=== PATIENT | female | born 1975 | race Caucasian/White ===

== ENCOUNTER 2023-04-07 16:38 | Emergency (ER) | payer OTHER, SELFPAY ==
[2023-04-07 16:50] VITALS: BP 146/107; PULSE 68; RESP 16; TEMP 36.2; O2SAT 100
--- NOTE | 2023-04-07 16:53 | ED.SKABFB ---
HPI - Skin/Abscess/Foreign Bdy General Chief complaint: Skin/Abscess/Foreign Body Stated complaint: itchy rash on eyelid and neck Time Seen by Provider: 04/07/23 16:50 Source: patient, RN notes reviewed and old records reviewed Mode of arrival: ambulatory Limitations: no limitations History of Present Illness HPI narrative: 48 year old female who presents to [facility] care with complaints of working in the yard and garden on Friday and then breaking out with a rash noted on her face and neck yesterday with increased swelling of her left eye lid today and small area on chest. Patient denies any difficulty with her breathing or swallowing, reports that rash is itchy. Patient is requesting steroid shot since rash is on face and she has some swelling and redness of upper left eyelid. Patient reports that she has had poison regina before and thinks that is what rash is and is concerned of spreading. Patient denies any visual changes or any drainage from her left eye.Patient has taken some Benadryl and used hydrocortisone cream with some relief in itching. MD complaint: rash Onset (ago): day(s) (1) Location: face and neck Severity scale (1-10): 2 Treatments prior to arrival: OTC topical medication and Benadryl Related Data Allergies Allergy/AdvReac Type Severity Reaction Status Date / Time bee venom protein (honey bee) Allergy Unknown Unknown Verified 02/10/23 15:25 latex Allergy Unknown Unknown Verified 02/10/23 15:25 Review of Systems Review of Systems: CONSTITUTIONAL: Denies fever, chills, or sweats. CARDIOVASCULAR: Denies chest pain, palpitations, or edema. RESPIRATORY: Denies cough or dyspnea. SKIN: Reports swelling of left upper eyelid with redness,vision unaffected.tissue is itchy, also rash area under right chin raised scattered to chest also with pruritus MUSCULOSKELETAL: Denies joint pain or myalgia. NEUROLOGIC: Denies headache, numbness, or weakness. All systems reviewed & are unremarkable except as noted in HPI and below [facility] Past Medical History Medical History Chronic left shoulder pain Elevated blood pressure reading History of atrial fibrillation History of migraine headaches Other chronic pain Family History Family History Grandparent Diabetes mellitus Family history of glaucoma Family history of cardiovascular disease Mother Carcinoma of colon Other Family history of elevated blood lipids Hypertension Social History Social History Smoking status: Never smoker Second hand tobacco smoke exposure: No Alcohol intake: current Drinks per week: 2 Substance use: never Substance use type: does not use Comments At time of signature, agree with nursing past medical, surgical, social and family history. There is no relevant family history pertinent to the presenting complaint Exam Narrative: GENERAL: Well-appearing, well-nourished, and in no acute distress. HEAD: Normocephalic, atraumatic. EYES: PERRLA, conjunctivae clear, and EOMI.left eyelid red and swollen no visual changes, conjunctiva clear no drainage ENT: Mucous membranes moist. Oropharynx without edema, erythema or lesions. NECK: Supple. No lymphadenopathy CHEST: Clear to auscultation. No respiratory distress.no tachypnea, SAO2 100% on room air HEART: Regular rate and rhythm. SKIN: Warm, dry.? Patches of red raised scattered rash noted to right neck and chest upper which is itchy with redness and swelling of left eyelid. NEURO:? Alert and oriented x3. PSYCH: Normal mood and affect Course Course Emergency Course: Patient is aware of diagnosis, understands and agrees to treatment plan.? Anticipatory guidance given.? Patient agrees to follow-up as directed and is aware of reasons to seek care at the emergency department. Portions of this
[2023-04-07] MEDS: methylPREDNISolone ACETATE 80 MG/ML VIAL IM (17:06)
== END 2023-04-07 17:14 | disposition home or self-care (01) ==
PROVIDERS: Emergency Provider Registered Nurse; PCP Family Medicine
DX: L25.9 Unspecified contact dermatitis, unspecified cause (principal); L23.7 Allergic contact dermatitis due to plants, except food; I48.91 Unspecified atrial fibrillation
CPT/HCPCS: 96372; 99213; G0463; J1040

== ENCOUNTER → 2023-07-09 15:44 | Outpatient (CLI) | payer OTHER, SELFPAY ==
--- NOTE | ~2023-07-09 | US_ITS ---
EXAMINATION: US soft tissue lower back INDICATION: Palpable lump of the lower back TECHNIQUE: Targeted ultrasound is performed in the area of clinical interest. COMPARISON: None available FINDINGS: There is an approximately 4.3 x 1.6 x 4.8 cm isoechoic, circumscribed mass of the right low er back corresponding to the area of clinical interest. No associated internal vascularity is identif ied. No additional mass is seen. IMPRESSION: 1. Findings consistent with a lipoma in the area of clinical interest. Reviewed, dictated and finalized at location B.
== END ==
PROVIDERS: PCP Physician Assistant; Visit Provider Physician Assistant
DX: R22.2 Localized swelling, mass and lump, trunk (principal)
CPT/HCPCS: 76705

== ENCOUNTER 2023-07-29 00:22 | Day surgery (SDC) | payer OTHER, SELFPAY ==
[2023-07-22 09:43] VITALS: BMI 25.5
--- NOTE | 2023-07-22 09:47 | PC.NURSE ---
Report to the Outpatient Waiting Room, entrance under the green pavilion located off [facility], at time 1400 on date 07/29/23. Planned Procedure Time: 1500. Time changes happen often and if your time is changed the preop area will call you the afternoon before. - You and your visitor will be asked to self-screen and do not enter if you have any COVID symptoms. - A mask is optional within the hospital at this time. Patients may have LIGHT BREAKFAST/LUNCH Take the following medications with a SIP of water the morning of surgery: PRESCRIBED DO NOT STOP ANY OF YOUR OTHER PRESCRIPTION MEDICATIONS PRIOR TO SURGERY ?EXCEPT THE FOLLOWING Medications to discontinue per physician: N/A Date to take last dose: N/A Please no make-up, nail pakistani, hairspray, perfume, deodorant, or body powder the day of surgery. No jewelry (including any body piercings) or valuables the day of surgery, leave them at home. Please take a shower or bath the night before, or the morning of, surgery with an antibacterial soap. Wear comfortable, loose fitting clothing. - Jewelry must be removed prior to entering the operating room. Rings and piercings that are not removed may be cut off. - The hospital will not accept responsibility for valuables. - Please leave all valuables, including medications, at home the day of surgery. YOU MAY DRIVE YOURSELF HOME. Follow any additional instructions given to you from your surgeon. If you or anyone in your household have experienced Covid symptoms in the past week, please notify your surgeon or the nurse liaison at the phone number below for possible testing. Telephone instructions given to PT - BRITTANY HALL and asked if any additional questions and then verbalized understanding. Patient advised to call surgeon office or pre surgery nurse liaison [phone] if any additional questions.
--- NOTE | 2023-07-29 14:23 | WPDHPUPDATE1 ---
History and Physical Update Update Date/Time: 07/29/23 14:23 History and Physical has been reviewed, including an updated exam of the patient. There are NO changes in the patient's condition. Risks, benefits, and alternatives have been discussed and questions answered. Patient agrees to proceed with procedure.
[2023-07-29 14:41] VITALS: BP 202/112; PULSE 55; RESP 20; O2SAT 99
[2023-07-29] MEDS: BUPivacaine HCL 0.5% PF 30 ML VIAL 29.5 ML INFILTRATE (14:45)
[2023-07-29] MEDS: LIDO 1%/EPINEPHRINE 1:100,000 20 ML VIAL 29.5 ML INFILTRATE (14:45)
[2023-07-29 14:48] VITALS: BP 174/107; PULSE 64; RESP 20; O2SAT 96
[2023-07-29 15:02] VITALS: BP 189/102; PULSE 78; O2SAT 98
--- NOTE | 2023-07-29 15:16 | P.OP_ITS ---
Procedure Note - Detailed Date of Procedure 07/29/23 Pre-op Diagnosis Back Mass Post-op Diagnosis Other (Right lower back intramuscular lipoma) Procedure Performed Excision of right lower back mass intramuscular lipoma Surgeon Yury Martin MD Anesthesia Local Indications Patient is a 48-year-old white female who presented with a slowly enlarging and sore subcutaneous mass in the right lower back region. Clinically was consistent with a lipoma. She presents now for excision. Findings The patient had a intramuscular lipoma measuring 4cm in length by 3.5cm width by 1cm in depth. It extended below the fascial level of the underlying muscle. Description of Procedure After informed consent was obtained she was brought to the operating room she was placed prone on operating table. The area the right lower back region was then prepped and draped usual sterile fashion. A time-out was then performed correctly identifying the patient as well as procedure to be performed. Site marking was verified. She was not given any IV antibiotics as no IV was started. I then proceeded to anesthetize the area around the subcutaneous mass utilizing 1% lidocaine mixed with 0.5% Marcaine in a 50 50 mixture with some epinephrine. Once I achieved adequate anesthesia then made transverse incision over the mass in dissected down through the dermis of the skin with a scalpel. Once I was into the subcutaneous tissues utilized electrocautery to dissect down to the capsule of the lipoma. There was intramuscular extension of the lipoma just below the fascia into the muscle fibers. I split the muscle fibers and easily dissected out the lipoma from the surrounding muscle tissue. When the abscess was measured was 4cm in length by 3.5cm width by 1cm in depth. It was sent to pathology for examination. I then irrigated out the incision sterile saline solution. Hemostasis was excellent. I then close incision by placing interrupted 2-0 Vicryl sutures in the fascia to the muscle. This is then followed by layer of interrupted 3-0 Vicryl sutures in the subcutaneous tissues. The skin edges were approximated utilizing a running subcuticular 4 Monocryl suture. The incision was then cleaned and then skin glue was applied for final dressing. The patient tolerated the procedure well no complications. All sponges, needles, and instrument counts were correct at the end procedure. EBL was _5__cc. The p atient was awakened and taken to recovery in stable and satisfactory condition. Implants None Estimated Blood Loss 5 Drains No Packing No Pathology Yes (Intramuscular lipoma to pathology) Complications No immediate complications Condition Stable Disposition PACU [facility] Billing Surgery - Charge Forward: Surgery Billing
[2023-07-29 15:20] VITALS: BP 168/100; PULSE 61; RESP 16; O2SAT 99
== END 2023-07-29 15:40 | disposition home or self-care (01) ==
PROVIDERS: PCP Physician Assistant; Visit Provider Surgery
PROC: (CPT 21933; principal; 2023-07-29 15:00)
DX: D17.1 Benign lipomatous neoplasm of skin and subcutaneous tissue of trunk (principal)
CPT/HCPCS: 21933; 88304; A9270

== ENCOUNTER → 2023-10-01 14:46 | Outpatient (CLI) | payer OTHER, SELFPAY ==
--- NOTE | ~2023-10-01 | MM_ITS ---
EXAMINATION: MM screening alexa BI w gloria HISTORY: Screening TECHNIQUE: Craniocaudal and mediolateral oblique 3-D tomosynthesis images were obtained and synthetic 2-D images were generated. CAD analysis was submitted and interpreted. COMPARISON: No prior mammogram is available for comparison at this institution. BREAST PARENCHYMAL COMPOSITION: The breasts are heterogeneously dense, which may obscure small masses . FINDINGS: There is no evidence of suspicious mass, calcification, or architectural distortion to sugg est malignancy in either breast. There has been no suspicious interval change. IMPRESSION: 1. No mammographic evidence of malignancy. 2. Recommend routine screening mammography in one year. BI-RADS Category 1: Negative Reviewed, dictated and finalized at location A. UER SIZER
== END ==
PROVIDERS: Visit Provider Physician Assistant
DX: Z12.31 Encounter for screening mammogram for malignant neoplasm of breast (principal)
CPT/HCPCS: 77063; 77067

== ENCOUNTER 2024-12-14 14:32 | Outpatient (CLI) | payer OTHER, SELFPAY ==
--- NOTE | ~2024-12-14 | XR_ITS ---
EXAMINATION: XR wrist RT 2V, XR hand RT 2V DATE: 12/14/2024 14:50 INDICATION: Right hand and wrist pain and swelling post fall TECHNIQUE: 1. Posteroanterior and lateral views of the right wrist were obtained. 2. Dorsal palmar and lateral views of the right hand were obtained. COMPARISON: None. FINDINGS: Nondisplaced intra-articular fracture extending obliquely across the distal right radius with subtle lucent fracture line extending to involve the articular surface at the lunate fossa. Fracture may be likely comminuted with 2 foci of cortical interruption along the radial side of the metaphyseal shell x. Alignment remains essentially anatomic with no significant fracture gap or incongruity at the cesario cular surface. No other fractures identified. Polyarticular osteoarthritis, severe at the second-fift h distal interphalangeal joints, moderate severity at the remaining interphalangeal joints 3, the tri scaphe joint and and first-fifth metacarpophalangeal joints and mild at the wrist, first carpometacar pal and remaining metacarpophalangeal joints. IMPRESSION: 1. Nondisplaced interarticular fracture of the distal right radius. 2. Typical distribution of distal interphalangeal joint predominance moderate to severe polyarticular osteoarthritis at the right hand. Reviewed, dictated and finalized at location A. E COOKER IMPRESSION: 1. Nondisplaced interarticular fracture of the distal right radius. 2. Typical distribution of distal interphalangeal joint predominance moderate t o severe polyarticular osteoarthritis at the right hand.
--- NOTE | ~2024-12-14 | XR_ITS ---
EXAMINATION: XR hand LT 2V DATE: 12/14/2024 14:50 INDICATION: Chronic left hand pain TECHNIQUE: Posteroanterior, oblique and lateral views of the left hand were obtained. COMPARISON: None. FINDINGS: Bone alignment is normal. No fracture. Polyarticular osteoarthritis, severe at the second-fifth dista l interphalangeal joints, moderate severity at the triscaphe, the metacarpophalangeal and remaining i nterphalangeal joints and mild at the wrist, midcarpal and first carpal metacarpal joints. Soft tissu es are unremarkable. IMPRESSION: 1. Typical distribution of moderate to severe distal interphalangeal predominant polyarticular osteoa rthritis at the left hand. Reviewed, dictated and finalized at location A. RN IMPRESSION: 1. Typical distribution of moderate to severe distal interphalangeal predominan t polyarticular osteoarthritis at the left hand.
== END 2024-12-14 14:33 | disposition home or self-care (01) ==
LOC: MICIMG 14:34
PROVIDERS: PCP Family Medicine; Visit Provider Student in an Organized Health Care Education/Training Program
DX: S52.571A Other intraarticular fracture of lower end of right radius, initial encounter for closed fracture (principal); X58.XXXA Exposure to other specified factors, initial encounter; M19.041 Primary osteoarthritis, right hand; M19.042 Primary osteoarthritis, left hand; L40.51 Distal interphalangeal psoriatic arthropathy
CPT/HCPCS: 73100; 73120

== ENCOUNTER 2025-02-02 15:25 | Emergency (ER) | payer OTHER, SELFPAY ==
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
[2025-02-02 15:25] VITALS: BP 116/83; PULSE 114; RESP 18; TEMP 36.4; O2SAT 100
--- OUTSIDE RECORDS SUMMARY | 2025-02-02 17:23 | XMS_ITS | Encounter Summary ---
[facility] Address [address] Attn: Epic Prelude ADT [place] [address] Care Team Providers Care Line Installer Trolley Name Role Phone Keli Smith MD Primary Care Provider [phone] Encounter Details Date Type Department Care Team (Late st Contact Info) Description 06/12/1998 Outpatient Historical Conversion, History Social History Tobacco Use Types Packs/Day Years Used Date Smoking Tobacco: Never Assessed Comments Unknown Sex and Gender Information Value Date Recorded Sex Assigned at Not on file 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
--- OUTSIDE RECORDS SUMMARY | 2025-02-02 17:23 | XMS_ITS | Clinical Summary ---
Author Organization [facility] Address [address] [place] [address] Care Team Providers Care Superintendent Automotive Name Role Phone Jamal Jama MD Primary Care Provider [phone] Source Comments [facility],non-owned Affiliates and Associated Physician Practices is amultiple site organization consisting of ambulatory clinics and hospital sitesin [place], [place], [place] and [place]. This disclosure is being madepursuant to the Care Everywhere program and may not contain all information available regarding this patient. Last updated 18.[facility] Allergies No known active allergies Medications * Be aware that medications may not be up to date on this document. Alwaysverify current medications with the patient. Medication Sig Dispensed Refills Start Date End Date Status benzonatate (TESSALON) 200 MG capsuleIndications:A cute laryngitis Take 1 capsule by mouth 3 times daily as needed for Cough 30 capsule 10/20/2017 Active Family History Medical History Relation Name Comments CAD (Coronary Artery Disease) Father pace maker Hypertension Father Other Father bleeding disord er on blood thinners Cancer - Other Maternal Grandmother Cancer - Colon Mother uterine Relation Name Status Comments Father Maternal Grandmother Mother Social History Tobacco Use Types Packs/Day Years Used Date Smoking Tobacco: Never Smokeless Tobacco: Never Sex and Gender Information Value Date Recorded Sex Assigned at Not on file Gender Identity Not on file Sexual Orientation Not on file Last Filed Vital Signs Vital Sign Reading Time Taken Comments Blood Pressure 144/82 10/20/2017 4:26 PM BRICK WASHER Pulse 103 10/20/2017 4:26 PM BRICK WASHER Temperature 37 C (98.6 F) 10/20/2017 4:26 PM BRICK WASHER Respiratory Rate 16 10/20/2017 4:26 PM BRICK WASHER Oxygen Saturation 99% 10/20/2017 4:26 PM BRICK WASHER Inhaled Oxygen Concentration - - Weight 73.9 kg (163 lb) 10/20/2017 4:26 PM BRICK WASHER Height 172.7 cm (5' 8 ) 10/20/2017 4:26 PM BRICK WASHER Body Mass Index 24.78 10/20/2017 4:26 PM BRICK WASHER Plan of Treatment Health Maintenance Due Date Last Done Comments COLOGUARD (AGES 45-75) - COL ON CA SCREENING 1973 COLON MONITORING 1973 COLONOSCOPY - COLON CA SCREENING 1973 CT COLONOGRAPHY - COLON CA SCREENING 1973 Colorectal Cancer Screening 1973 FIT - COLON CA SCREENING 1973 FLEX SIG - COLON CA SCREENING 1973 LIPID TESTING 1973 MAMMOGRAM 1973 PAP SMEAR 1973 HIV SCREENING 1988 HEPATITIS C SCREENING 01/14/1991 DTAP/TDAP/TD VACCINES (1 - Tdap) 1992 HEPATITIS B VACCINE (1 of 3 - 19+ 3-dose series) 1992 PNEUMOCOCCAL VACCINE 50+ (1 of 1 - PCV) 2023 ZOSTER VACCINE (1 of 2) 2023 COVID-19 VACCINE (1 - 2023-2 5 season) 2024 INFLUENZA VACCINE (#1) 2024 DEPRESSION SCREENING 11/24/2024 HIB VACCINE Aged Out No longer eligi ble based on patient's age to complete this topic HPV VACCINE Aged Out No longer eligi ble based on patient's age to complete this topic MENINGOCOCCAL (Group B) VACC INE SHARED DECISION-MAKING Aged Out No longer eligibl e based on patient's age to complete this topic MENINGOCOCCAL GROUPS A/C/Y/W VACCINE Aged Out No longer eligible b ased on patient's age to complete this topic PNEUMOCOCCAL VACCINE Aged Out No long er eligible based on patient's age to complete this topic Care Teams Superintendent Automotive Relationship Specialty Start Date End Date Jamal Jama MD PCP - General Family Medicine 08/18/17
--- OUTSIDE RECORDS SUMMARY | 2025-02-02 17:23 | XMS_ITS | Encounter Summary ---
Author Organization [facility] Address [address] [place] [address] Care Team Providers Care Leakage Tester Name Role Phone Keli Smith MD Primary Care Provider [phone] Encounter Details Date Type Department Care Team (Late st Contact Info) Description 06/02/2002 Outpatient Historical [facility] Internal Medicine - [place] [address] [place] [id number] [place] [address] [place] [id number] Social History Tobacco Use Types Packs/Day Years Used Date Smoking Tobacco: Never Assessed Comments Unknown Sex and Gender Information Value Date Recorded Sex Assigned at Not on file 

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
--- OUTSIDE RECORDS SUMMARY | 2025-02-02 17:23 | XMS_ITS | Encounter Summary ---
Author Organization [facility] Address [address] [place] [address] Care Team Providers Care Security Field Supervisor Name Role Phone Keli Smith MD Primary Care Provider Encounter Details Date Type Department Care Team (Late st Contact Info) Description 06/15/2003 Outpatient Historical [facility] [place] [address] [place] [phone] [place] [address] [place] [phone] Social History Tobacco Use Types Packs/Day Years Used Date Smoking Tobacco: Never Assessed Comments Unknown Sex and Gender Information Value Date Recorded Sex Assigned at Not on file Legal Sex Female 5:04 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 TABLE 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 Gender Identity Not on file Sexual Orientation Not on file documented as of this encounter Last Filed Vital Signs Vital Sign Reading Time Taken Comments Blood Pressure 112/80 06/15/2003 3:30 PM CDT Pulse 60 06/15/2003 3:30 PM CDT Temperature - - Respiratory Rate - - Oxygen Saturation - - Inhaled Oxygen Concentration - - Weight 63.5 kg (140 lb) 06/15/2003 3:30 PM CDT Height - - Body Mass Index - - documented in this encounter Plan of Treatment Not on file documented as of this encounter Visit Diagnoses Not on filedocumented in this encounter Care Teams Security Field Supervisor Relationship Specialty Start Date End Date Keli Smith MD [address] [place] [phone] PCP - General Family Practice 08/22/21 documented as of this encounter
--- OUTSIDE RECORDS SUMMARY | 2025-02-02 17:23 | XMS_ITS | Referral Summary ---
Author Organization [facility] Address [address] [place] [address] Care Team Providers Care Core Man Name Role Phone Jamal Jama MD Primary Care Provider [phone] Source Comments [facility],non-owned Affiliates and Associated Physician Practices is amultiple site organization consisting of ambulatory clinics and hospital sitesin [place], [place], [place] and [place]. This disclosure is being madepursuant to the Care Everywhere program and may not contain all information available regarding this patient. Last updated 18.[facility] Allergies No known active allergies Medications * Be aware that medications may not be up to date on this document. Alwaysverify current medications with the patient. Medication Sig Dispensed Refills Start Date End Date Status benzonatate (TESSALON) 200 MG capsuleIndications:A cute laryngitis Take 1 capsule by mouth 3 times daily as needed for Cough 30 capsule 10/20/2017 Active Social History Tobacco Use Types Packs/Day Years Used Date Smoking Tobacco: Never Smokeless Tobacco: Never Sex and Gender Information Value Date Recorded Sex Assigned at Not on file Gender Identity Not on file Sexual Orientation Not on file Last Filed Vital Signs Vital Sign Reading Time Taken Comments Blood Pressure 144/82 10/20/2017 4:26 PM BRIDGE ENGINEER Pulse 103 10/20/2017 4:26 PM BRIDGE ENGINEER Temperature 37 C (98.6 F) 10/20/2017 4:26 PM BRIDGE ENGINEER Respiratory Rate 16 10/20/2017 4:26 PM BRIDGE ENGINEER Oxygen Saturation 99% 10/20/2017 4:26 PM BRIDGE ENGINEER Inhaled Oxygen Concentration - - Weight 73.9 kg (163 lb) 10/20/2017 4:26 PM BRIDGE ENGINEER Height 172.7 cm (5' 8 ) 10/20/2017 4:26 PM BRIDGE ENGINEER Body Mass Index 24.78 10/20/2017 4:26 PM BRIDGE ENGINEER Plan of Treatment Not on file Care Teams Core Man Relationship Specialty Start Date End Date Jamal Jama MD PCP - General Family Medicine 08/18/17
--- OUTSIDE RECORDS SUMMARY | 2025-02-02 17:23 | XMS_ITS | Encounter Summary ---
Author Organization [employer] Address [address] [place] [address] Care Team Providers Care Core Cutter Name Role Phone Keli Smith MD Primary Care Provider [phone] Encounter Details Date Type Department Care Team (Latest Contact Info) Description 01/14/2006 Inpatient Historical HIS OB PREADMIT Dave Angel MD NO ADDRESS ON FILE Murphy Wilson MD [facility] [address] [phone] BREECH PRESENTAT-DELIVER (Primary Dx) Social History Tobacco Use Types Packs/Day Years Used Date Smoking Tobacco: Never Assessed Comments Unknown Sex and Gender Information Value Date Recorded Sex Assigned at Not on file Legal Sex Female 5:04 AM RERECORDING MIXER Gender Identity Not on file Sexual Orientation Not on file documented as of this encounter Plan of Treatment Not on file documented as of this encounter Procedures Procedure Name Priority Date/Time Associated Diagnosis Comments CBC WITH DIFFERENTIAL Routine 01/13/2006 3:00 PM RERECORDING MIXER CBC WITH DIFFERENTIAL Routine 01/13/2006 3:00 PM RERECORDING MIXER URINALYSIS W/REFLEX MICROSCOPIC Routine 01/13/2006 3:00 PM RERECORDING MIXER documented in this encounter Results * (ABNORMAL) CBC WITH DIFFERENTIAL (01/13/2006 3:00 PM RERECORDING MIXER) NEUTROPHILS 71(H) 45 - 70 % INTERFAC E SYSTEM LYMPHOCYTES 20 16 - 45 % INTERFAC E SYSTEM MONOCYTES 8 3 - 13 % INTERFACE SYSTEM EOSINOPHILS 1 0 - 7 % INTERFAC E SYSTEM BASOPHILS 0 0 - 2 % INTERFACE SYSTEM NEUTROPHIL ABSOLUTE 7.02(H) 1.90 - 7.00 K/uL INTERFACE SYSTEM LYMPHOCYTE ABSOLUTE 1.95 0.70 - 4.50 K/uL INTERFACE SYSTEM MONOCYTE ABSOLUTE 0.81 0.10 - 1.30 K/uL INTERFACE SYSTEM EOSINOPHIL ABSOLUTE 0.07 0.00 - 0.70 K/uL INTERFACE SYSTEM BASOPHILS ABSOLUTE 0.02 0.00 - 0.20 K/uL INTERFACE SYSTEM 01/13/2006 3:00 PM RERECORDING MIXER us Murphy iWlson MD HEMATOLOGY ORDERABLES Final Result Performing Organization Address City/State/[facility] Co de Phone Number INTERFACE SYSTEM Refer to clinic/hospital department * (ABNORMAL) CBC WITH DIFFERENTIAL (01/13/2006 3:00 PM RERECORDING MIXER) WBC 9.9(H) 4.0 - 9.8 K/uL INTERFACE SYSTEM RBC 4.32 3.90 - 4.90 M/uL INTERFACE SYSTEM HEMOGLOBIN 12.9 11.8 - 14.8 g/dL INTERFACE SYSTEM HEMATOCRIT 37.9 35.5 - 44.0 % INTERFACE SYSTEM MCV 87.7 82.0 - 99.0 fL INTERFACE SYSTEM MCH 29.9 27.2 - 32.6 pg INTERFACE SYSTEM MCHC 34.0 31.5 - 35.5 % INTERFACE SYSTEM RDW 13.1 11.5 - 14.5 % INTERFACE SYSTEM RDW-STDEV 42.2 37.1 - 48.7 fL INTERFACE SYSTEM PLATELETS 262 140 - 350 K/uL INTERFACE SYSTEM MPV 9.6 9.3 - 12.4 fL INTERFACE SYSTEM 01/13/2006 3:00 PM RERECORDING MIXER Murphy Wilson MD HEMATOLOGY ORDERABLES Final Result Performing Organization Address City/[facility]/ZIP Co de Phone Number INTERFACE SYSTEM Refer to clinic/hospital department * (ABNORMAL) URINALYSIS (01/13/2006 3:00 PM RERECORDING MIXER) COLOR UA Yellow INTERFACE SYSTEM CLARITY UA Slt. Cloudy(A) Clear INTERFACE SYSTEM SPECIFIC GRAVITY UA 1.010 1.001 - 1.035 INTERFACE SYSTEM PH UA 6.0 5.0 - 8.0 INTERFACE SYSTEM LEUKOCYTE ESTERASE UA 2+(A) Negative INTERFACE SYSTEM NITRITE UA Negative Negative INTERFACE SYSTEM PROTEIN UA Trace(A) Negative INTERFACE SYSTEM GLUCOSE UA Negative Negative INTERFACE SYSTEM KETONES UA Negative Negative INTERFACE SYSTEM UROBILINOGEN UA <1 <1 mg/dL INTE RFACE SYSTEM BILIRUBIN UA Negative Negative INTERFA CE SYSTEM BLOOD UA 1+(A) Negative INTERFACE SYSTEM WBC UA 15(H) 0 - 5 /HPF INTERFACE SYSTEM RBC UA 5(H) 0 - 4 /HPF INTERFACE SYSTEM EPITHELIAL CELLS, URINE Many /HPF INTERFACE SYSTEM 01/13/2006 3:00 PM RERECORDING MIXER us Murphy Wilson MD URINE ORDERABLES Final Resul t Performing Organization Address City/[facility]/ZIP Co de Phone Number INTERFACE SYSTEM Refer to clinic/hospital department documented in this encounter Visit Diagnoses Diagnosis Breech presentation without mention of version, delivered- Primary documented in this encounter Care Teams Core Cutter Relationship Specialty Start Date End Date Keli Smith MD [address] [place] [phone] PCP - General Family Practice 08/22/21 documented as of this encounter
--- OUTSIDE RECORDS SUMMARY | 2025-02-02 17:23 | XMS_ITS | Encounter Summary ---
Author Organization [facility] Address [address] [place] [address] Care Team Providers Care Car Repairer Name Role Phone Keli Smith MD Primary Care Provider [phone] Encounter Details Date Type Department Care Team (Late st Contact Info) Description 10/31/2004 Outpatient Historical [facility] Internal Medicine - [place] [address] [place] [phone] [place] [address] [place] [phone] Social History Tobacco Use Types Packs/Day Years Used Date Smoking Tobacco: Never Assessed Comments Unknown Sex and Gender Information Value Date Recorded Sex Assigned at Not on file Legal Sex Female 5:04 AM SOFTWARE ENGINEERING SPECIALIST Gender Identity Not on file Sexual Orientation Not on file documented as of this encounter Last Filed Vital Signs Vital Sign Reading Time Taken Comments Blood Pressure 110/60 10/31/2004 9:30 AM SOFTWARE ENGINEERING SPECIALIST Pulse - - Temperature 38.9 C (102 F) 10/31/2004 9:30 AM SOFTWARE ENGINEERING SPECIALIST Respiratory Rate - - Oxygen Saturation - - Inhaled Oxygen Concentration - - Weight 64.4 kg (142 lb) 10/31/2004 9:30 AM SOFTWARE ENGINEERING SPECIALIST Height - - Body Mass Index - - documented in this encounter Plan of Treatment Not on file documented as of this encounter Visit Diagnoses Not on filedocumented in this encounter Care Teams Car Repairer Relationship Specialty Start Date End Date Keli Smith MD [address] [place] [address] PCP - General Family Practice 08/22/21 documented as of this encounter
--- OUTSIDE RECORDS SUMMARY | 2025-02-02 17:23 | XMS_ITS | Encounter Summary ---
Author Organization [employer] Address [address] [place] [address] Care Team Providers Care Pan Cleaner Name Role Phone Keli Smith MD Primary Care Provider [phone] Encounter Details Date Type Department Care Team (Late st Contact Info) Description 01/29/2025 External Device Data [facility] ABSTRACTION Provider, Abstract NO ADDRESS ON FILE Social History Tobacco Use Types Packs/Day Years Used Date Smoking Tobacco: Never Smokeless Tobacco: Never Alcohol Use Standard Drinks/Week Comments Yes 1 (1 standard drink = 0.6 oz pur e alcohol) Comments No Sex and Gender Information Value Date Recorded Sex Assigned at Not on file Legal Sex Female 5:04 AM NOTEMAN Gender Identity Not on file Sexual Orientation Not on file Occupation Industry Job Start Date Job End Date stay at home Not on file Not on file Not on file documented as of this encounter Plan of Treatment Not on file documented as of this encounter Visit Diagnoses Not on filedocumented in this encounter Care Teams Pan Cleaner Relationship Specialty Start Date End Date Keli Smith MD [address] [place] [phone] PCP - General Family Practice 08/22/21 documented as of this encounter
--- OUTSIDE RECORDS SUMMARY | 2025-02-02 17:23 | XMS_ITS | Encounter Summary ---
Author Organization [facility] Address [address] [place] [address] Care Team Providers Care Counter Stacker Name Role Phone Keli Smith MD Primary Care Provider [phone] Encounter Details Date Type Department Care Team (Latest Contact Info) Description 08/24/2008 Outpatient Historical HIS 6 [facility]ILY [facility]OC[facility] Murphy Wilson MD [facility] [address] [address] Deliv; Normal Delivery Social History Tobacco Use Types Packs/Day Years Used Date Smoking Tobacco: Never Assessed Comments Unknown Sex and Gender Information Value Date Recorded Sex Assigned at Not on file Legal Sex Female 5:04 AM SENIOR ENTERPRISE ARCHITECT Gender Identity Not on file Sexual Orientation Not on file documented as of this encounter Plan of Treatment Not on file documented as of this encounter Procedures Procedure Name Priority Date/Time Associated Diagnosis Comments BLOOD BANK AB IDENT Routine 08/24/2008 2 :04 PM CDT DIRECT RENEA POLY Routine 08/24/2008 2: 04 PM CDT CBC WITH DIFFERENTIAL Routine 08/24/2008 2:04 PM CDT URINALYSIS W/REFLEX MICROSCOPIC Routine 08/24/2008 2:04 PM CDT TYPE AND SCREEN Routine 08/24/2008 2:04 PM CDT documented in this encounter Results * DIRECT RENEA POLY (08/24/2008 2:04 PM CDT) DIRECT ANTIGLOBULIN POLY Negative [facility] 08/24/2008 2:04 PM CDT Murphy Wilson MD BLOOD BANK ORDERABLES Final Result Performing Organization Address City/[facility]/ZIP Co de Phone Number INTERFACE SYSTEM Refer to clinic/hospital department [facility] CLIA# [id number] [address] [facility] [address] * ANTIBODY IDENTIFICATION (08/24/2008 2:04 PM CDT) ANTIBODY ID PANEL SolidPhase Ab Only [facility] 08/24/2008 2:04 PM CDT Murphy Wilson MD BLOOD BANK ORDERABLES Final Result Performing Organization Address [facility] de Phone Number INTERFACE SYSTEM Refer to clinic/hospital department [facility] CLIA# [id number] [address] [place] [address] * TYPE AND SCREEN (08/24/2008 2:04 PM CDT) HISTORY CHECK History Checked [facility] SPECIMEN LIFE [address] [facility] ABO/RH TYPE A Positive [facility] ANTIBODY SCREEN Positive [facility] Blood specimen (specimen) 08/24/2008 2:04 PM CDT Murphy Wilson MD BLOOD BANK ORDERABLES Edited Performing Organization Address City/[facility] Co de Phone Number INTERFACE SYSTEM Refer to clinic/hospital department [facility] CLIA# [id number] [address] [place] [address] * (ABNORMAL) URINALYSIS (08/24/2008 2:04 PM CDT) KETONES UA Negative Negative [facility] WBC UA 3 0 - 5 /HPF [facility] CLARITY UA Slt. Cloudy(A) Clear [facility] PROTEIN UA Negative Negative [facility] EPITHELIAL CELLS, URINE 5-10 /HPF [facility] BILIRUBIN UA Negative Negative [facility] LEUKOCYTE ESTERASE UA 2+(A) Negative [facility] RBC UA 1 0 - 4 /HPF [facility] SPECIFIC GRAVITY UA 1.006 1.001 - 1.035 [facility] BLOOD UA Negative Negative [facility] GLUCOSE UA Negative Negative [facility] COLOR UA Pale Yellow [facility] NITRITE UA Negative Negative [facility] UROBILINOGEN UA <1 <=1 mg/dL [facility] BACTERIA UA 1+(A) None Seen /HPF [facility] PH UA 6.0 5.0 - 8.0 [facility] Urine specimen (specimen) 08/24/2008 2:04 PM CDT 08/24/2008 2:19 PM CDT us Murphy Wilson MD URINE ORDERABLES Final Resul t Performing Organization Address [facility] Co de Phone Number INTERFACE SYSTEM Refer to clinic/hospital department [facility] CLIA# [id number] [address] [place] [address] * CBC WITH DIFFERENTIAL (08/24/2008 2:04 PM CDT) RBC 4.06 3.90 - 4.90 M/uL [facility] MCHC 33.9 31.5 - 35.5 % [facility] MCV 88.7 82.0 - 99.[address] [facility] PLATELETS 253 140 - 350 K/uL [facility] HEMOGLOBIN 12.2 11.8 - 14.8 g/dL [facility] RDW 13.5 11.5 - 14.5 % [facility] WBC 8.8 4.0 - 9.8 K/uL [facility] MCH 30.0 27.2 - 32.[address] [facility] MPV 9.8 9.3 - 12.[address] [facility] HEMATOCRIT 36.0 35.5 - 44.0 % [facility] RDW-STDEV 43.4 37.1 - 48.[address] [facility] MONOCYTE ABSOLUTE 0.65 0.10 - 1.30 K/uL [facility] NEUTROPHILS 69 45 - 70 % [facility] NEUTROPHIL ABSOLUTE 6.04 1.90 - 7.00 K/uL [facility] EOSINOPHILS 1 0 - 7 % [facility] BASOPHILS ABSOLUTE 0.01 0.00 - 0.20 K/uL [facility] LYMPHOCYTES 23 16 - 45 % [facility] LYMPHOCYTE ABSOLUTE 2.02 0.70 - 4.50 K/uL [facility] BASOPHILS 0 0 - 2 % [facility] EOSINOPHIL ABSOLUTE 0.06 0.00 - 0.70 K/uL [facility] MONOCYTES 7 3 - 13 % [facility] Blood specimen (specimen) 08/24/2008 2:04 PM CDT 08/24/2008 2:19 PM CDT us Murphy Wilson MD HEMATOLOGY ORDERABLES Edited INTERFACE SYSTEM Refer to clinic/hospital department [facility] CLIA# [id number] [address] [place] [address] documented in this encounter Visit Diagnoses Diagnosis delivery, without mention of indication, delivered, with or without mention of antepartum condition Normal delivery documented in this encounter Care Teams Counter Stacker Relationship Specialty Start Date End Date Keli Smith MD [address] [place] [address] PCP - General Family Practice 08/22/21 documented as of this encounter
--- OUTSIDE RECORDS SUMMARY | 2025-02-02 17:23 | XMS_ITS | Encounter Summary ---
Author Organization [facility] Address [address] [place] [address] Care Team Providers Care Selling Specialist Name Role Phone Keli Smith MD Primary Care Provider [phone] Encounter Details Date Type Department Care Team (Late st Contact Info) Description 03/10/2001 Outpatient [facility] [address] [facility] [address] [place] [address] Abdoul Birmingham (Two) Social History Tobacco Use Types Packs/Day Years Used Date Smoking Tobacco: Never Assessed Comments Unknown Sex and Gender Information Value Date Recorded Sex Assigned at Not on file Legal Sex Female 5:04 AM CHANGE CONTROL MANAGER Gender Identity Not on file Sexual Orientation Not on file documented as of this encounter Plan of Treatment Not on file documented as of this encounter Visit Diagnoses Not on filedocumented in this encounter Care Teams Selling Specialist Relationship Specialty Start Date End Date Keli Smith MD [address] [place] [address] PCP - General Family Practice 08/22/21 documented as of this encounter
--- OUTSIDE RECORDS SUMMARY | 2025-02-02 17:23 | XMS_ITS | Encounter Summary ---
Author Organization [facility] Address [address] [place] [address] Care Team Providers Care Ash Kier Boiler Name Role Phone Keli Smith MD Primary Care Provider [phone] Encounter Details Date Type Department Care Team (Late st Contact Info) Description 08/30/1999 Outpatient Historical [facility] Internal Medicine - [place] [address] [place] [phone] [place] [address] [place] [phone] Social History Tobacco Use Types Packs/Day Years Used Date Smoking Tobacco: Never Assessed Comments Unknown Sex and Gender Information Value Date Recorded Sex Assigned at Not on file Legal Sex Female 5:04 AM DIRECTOR OF CLINICAL SERVICES Gender Identity Not on file Sexual Orientation Not on file documented as of this encounter Plan of Treatment Not on file documented as of this encounter Visit Diagnoses Not on filedocumented in this encounter Care Teams Ash Kier Boiler Relationship Specialty Start Date End Date Keli Smith MD [address] [place] [address] PCP - General Family Practice 08/22/21 documented as of this encounter
--- OUTSIDE RECORDS SUMMARY | 2025-02-02 17:23 | XMS_ITS | Encounter Summary ---
Author Organization [facility] Address [address] [place] [address] Care Team Providers Care Blacktop Spreader Name Role Phone Keli Smith MD Primary Care Provider [phone] Encounter Details Date Type Department Care Team (Late st Contact Info) Description 11/13/2000 Outpatient Historical [facility] Internal Medicine - [place] [address] [place] [phone] [place] [address] [place] [phone] Social History Tobacco Use Types Packs/Day Years Used Date Smoking Tobacco: Never Assessed Comments Unknown Sex and Gender Information Value Date Recorded Sex Assigned at Not on file Legal Sex Female 5:04 AM HELP DESK INTERNSHIP Gender Identity Not on file Sexual Orientation Not on file documented as of this encounter Plan of Treatment Not on file documented as of this encounter Visit Diagnoses Not on filedocumented in this encounter Care Teams Blacktop Spreader Relationship Specialty Start Date End Date Keli Smith MD [address] [place] [address] PCP - General Family Practice 08/22/21 documented as of this encounter
--- OUTSIDE RECORDS SUMMARY | 2025-02-02 17:23 | XMS_ITS | Encounter Summary ---
Author Organization [facility] Address [address] [place] [address] Care Team Providers Care Ride Assembly Supervisor Name Role Phone Keli Smith MD Primary Care Provider [phone] Encounter Details Date Type Department Care Team (Late st Contact Info) Description 01/20/2002 Outpatient [facility] [address] [place] [address] Abdoul Birmingham (Two) Social History Tobacco Use Types Packs/Day Years Used Date Smoking Tobacco: Never Assessed Comments Unknown Sex and Gender Information Value Date Recorded Sex Assigned at Not on file Legal Sex Female 5:04 AM SPRAYER OPERATOR Gender Identity Not on file Sexual Orientation Not on file documented as of this encounter Plan of Treatment Not on file documented as of this encounter Visit Diagnoses Not on filedocumented in this encounter Care Teams Ride Assembly Supervisor Relationship Specialty Start Date End Date Keli Smith MD [address] [place] [address] PCP - General Family Practice 08/22/21 documented as of this encounter
--- OUTSIDE RECORDS SUMMARY | 2025-02-02 17:23 | XMS_ITS | Encounter Summary ---
Author Organization [facility] Address [address] [place] [address] Care Team Providers Care Hcc Coders Name Role Phone Keli Smith MD Primary Care Provider [phone] Encounter Details Date Type Department Care Team (Late st Contact Info) Description 03/21/1999 Outpatient Historical [facility] Internal Medicine - [place] [address] [place] [address] Carmen Berry MD [address] [facility] [address] [place] [address] Social History Tobacco Use Types Packs/Day Years Used Date Smoking Tobacco: Never Assessed Comments Unknown Sex and Gender Information Value Date Recorded Sex Assigned at Not on file Legal Sex Female 5:04 AM RESEARCH SOFTWARE ENGINEER Gender Identity Not on file Sexual Orientation Not on file documented as of this encounter Plan of Treatment Not on file documented as of this encounter Visit Diagnoses Not on filedocumented in this encounter Care Teams Hcc Coders Relationship Specialty Start Date End Date Keli Smith MD [address] [place] [address] PCP - General Family Practice 08/22/21 documented as of this encounter
--- OUTSIDE RECORDS SUMMARY | 2025-02-02 17:23 | XMS_ITS | Encounter Summary ---
Author Organization [employer] Address [address] [place] [address] Care Team Providers Care Solid Waste Collector Name Role Phone Keli Smith MD Primary Care Provider [phone] Encounter Details Date Type Department Care Team (Late st Contact Info) Description 02/01/2025 External Device Data STL ABSTRACTION [...] on file Legal Sex Female 5:04 AM TRAVEL SALES CONSULTANT Gender Identity Not on file Sexual Orientation Not on file Occupation Industry Job Start Date Job End Date stay at home Not on file Not on file Not on file documented as of this encounter Plan of Treatment Not on file documented as of this encounter Visit Diagnoses Not on filedocumented in this encounter Care Teams Solid Waste Collector Relationship Specialty Start Date End Date Keli Smith MD [address] [place] [address] PCP - General Family Practice 08/22/21 documented as of this encounter
--- OUTSIDE RECORDS SUMMARY | 2025-02-02 17:23 | XMS_ITS | Encounter Summary ---
Author Organization [facility] Address [address] [place] [address] Care Team Providers Care Assistant County Attorney Name Role Phone Keli Smith MD Primary Care Provider [phone] Encounter Details Date Type Department Care Team (Late st Contact Info) Description 08/28/2005 Outpatient Historical [facility] Maternal and Ground Floor [facility] [address] [place] [address] Louie Caicedo MD NO ADDRESS ON FILE Social History Tobacco Use Types Packs/Day Years Used Date Smoking Tobacco: Never Assessed Comments Unknown Sex and Gender Information Value Date Recorded Sex Assigned at Not on file Legal Sex Female 5:04 AM UTILITY SYSTEM OPERATOR Gender Identity Not on file Sexual Orientation Not on file documented as of this encounter Plan of Treatment Not on file documented as of this encounter Visit Diagnoses Not on filedocumented in this encounter Care Teams Assistant County Attorney Relationship Specialty Start Date End Date Keli Smith MD [address] [place] [phone] PCP - General Family Practice 08/22/21 documented as of this encounter
--- OUTSIDE RECORDS SUMMARY | 2025-02-02 17:23 | XMS_ITS | Continuity of Care Document ---
Author Organization [facility] Address [address] [place] [address] Phone Care Team Providers Care Design Engineer Agricultural Equipment Name Role Phone MD THOMAS GILBERT Unavailable Unavailable Advance Directives Directive Yes / No Effective Date File Name No Information Encounters Encounter Description Practice Location Reason(s) For Visit Diagnoses Date Provider Providers Copied on Encounter [facility], [address] [facility], [place], [place], [id number], [place] tel:[phone] [facility] OUTPATIENT No Information MD RUTHIE THOMAS. [address] [place] [address], [id number], [place]. tel:[phone] Referring Provider: CEDRIC Hines, [address] [place], [address]. tel:[phone] Family History Family Member Type Diagnosis Age At Onset No Information Payers Payer name Insurance type Covered libertarian ID Authorsalomóna kuldip(s) [facility] POS [id number] CI [id number] Social History Type Description Quantity Date Captured Comments Sex Female Smoking Status No Information Chief Complaint And Reason For Visit No Information History Of Present Illness Encounter Date Complaint History Of Prese nt Illness No Information Instructions Date Instruction Additional Infor mation No Information Assessments Type Assessment Date No Information
--- OUTSIDE RECORDS SUMMARY | 2025-02-02 17:23 | XMS_ITS | Encounter Summary ---
Author Organization [facility] Address [address] [place] [address] Care Team Providers Care Rug Hooker Name Role Phone Keli Smith MD Primary Care Provider [phone] Encounter Details Date Type Department Care Team (Late st Contact Info) Description 03/24/2002 Outpatient [facility] [address] [address] [place] [address] Abdoul Birmingham (Two) Social History Tobacco Use Types Packs/Day Years Used Date Smoking Tobacco: Never Assessed Comments Unknown Sex and Gender Information Value Date Recorded Sex Assigned at Not on file Legal Sex Female 5:04 AM OFFICE MACHINES WIRER Gender Identity Not on file Sexual Orientation Not on file documented as of this encounter Plan of Treatment Not on file documented as of this encounter Visit Diagnoses Not on filedocumented in this encounter Care Teams Rug Hooker Relationship Specialty Start Date End Date Keli Smith MD [address] [place] [address] PCP - General Family Practice 08/22/21 documented as of this encounter
--- OUTSIDE RECORDS SUMMARY | 2025-02-02 17:23 | XMS_ITS | Encounter Summary ---
Author Organization [facility] Address [address] [place] [address] Care Team Providers Care Meat Cutter Apprentice Name Role Phone Keli Smith MD Primary Care Provider [phone] Encounter Details Date Type Department Care Team (Latest Contact Info) Description 06/15/2003 Outpatient Historical [facility] SHAKIR Lindsey, [place] [address] [place] [address] ELB/FOREARM/WRST INJURY NOS (Primary Dx) Social History Tobacco Use Types Packs/Day Years Used Date Smoking Tobacco: Never Assessed Comments Unknown Sex and Gender Information Value Date Recorded Sex Assigned at Not on file Legal Sex Female 5:04 AM SILK SCREENER Gender Identity Not on file Sexual Orientation Not on file documented as of this encounter Plan of Treatment Not on file documented as of this encounter Visit Diagnoses Diagnosis Injury, other and unspecified, elbow, forearm, and wrist- Primary documented in this encounter Care Teams Meat Cutter Apprentice Relationship Specialty Start Date End Date Keli Smith MD [address] [place] [address] PCP - General Family Practice 08/22/21 documented as of this encounter
--- OUTSIDE RECORDS SUMMARY | 2025-02-02 17:23 | XMS_ITS | Encounter Summary ---
Author Organization [facility] Address [address] [place] [address] Care Team Providers Care Information Technology Intern Name Role Phone Keli Smith MD Primary Care Provider [phone] Encounter Details Date Type Department Care Team (Late st Contact Info) Description 09/28/2003 Outpatient Historical [facility] Internal Medicine - [place] [address] [place] [phone] [place] [address] [place] [phone] Social History Tobacco Use Types Packs/Day Years Used Date Smoking Tobacco: Never Assessed Comments Unknown Sex and Gender Information Value Date Recorded Sex Assigned at Not on file Legal Sex Female 5: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 Gender Identity Not on file Sexual Orientation Not on file documented as of this encounter Last Filed Vital Signs Vital Sign Reading Time Taken Comments Blood Pressure 122/80 09/28/2003 11:30 AM PIT FURNACE OPERATOR Pulse - - Temperature - - Respiratory Rate - - Oxygen Saturation - - Inhaled Oxygen Concentration - - Weight 62.6 kg (138 lb) 09/28/2003 11:30 AM PIT FURNACE OPERATOR Height - - Body Mass Index - - documented in this encounter Plan of Treatment Not on file documented as of this encounter Visit Diagnoses Not on filedocumented in this encounter Care Teams Information Technology Intern Relationship Specialty Start Date End Date Keli Smith MD [address] [place] [address] PCP - General Family Practice 08/22/21 documented as of this encounter
--- OUTSIDE RECORDS SUMMARY | 2025-02-02 17:23 | XMS_ITS | Clinical Summary ---
Author Organization [facility] Address [address] [place] [address] Care Team Providers Care Microsoft Application Developer Name Role Phone Unavailable Primary Care Provider Unavailabl e Immunizations Immunization Administration Dates Next Due Covid-19, Mrna, Lnp-s, PF, 5 0 mcg/0.25 mL dose (Moderna) 11/28/2021 Social History Tobacco Use Types Packs/Day Years Used Date Smoking Tobacco: Never Assessed Comments Unknown Sex and Gender Information Value Date Recorded Sex Assigned at Not on file Legal Sex Female 1:51 PM BUDGET ACCOUNTANT Gender Identity Not on file Sexual Orientation Not on file Plan of Treatment Health Maintenance Due Date Last Done Comments Hepatitis C Virus (HCV) Screening 1973 Mammogram 1973 Hepatitis B Immunization (1 of 3 - 19+ 3-dose series) 1992 Pap Smear 1994 Cervical Cancer Screening (CCS) 2003 HPV/Cotest 2003 Cologuard 2023 Immunochemical Fecal Occult Blood 2023 Pneumococcal Immunization (5 0+ years) (1 of 1 - PCV) 2023 Zoster Immunization (1 of 2) 2023 Influenza Immunization (#1) 07/25/202408/24, 11/20/2016 SARS-COV-2 Immunization ( season) 2024 11/28/2021, 05/08/2021, 04/10/2021 Colonoscopy 09/04/2031 09/04/2021 Colorectal Cancer Screening 09/04/2031 Respiratory Syncytial Virus (RSV) Immunization (Adult) (1 - 1-dose 75+ series) 2048 09/04/2021 DTaP/Tdap/Td Immunization Discontinued 06/24/2015 TdaP Immunization Completed 06/24/2015 Meningococcal Immunization (ACWY) Aged Out No longer eligible based on patient's age to complete this topic Pneumococcal Immunization Combined Aged Out No longer eligible based on patient's age to complete this topic Rotavirus Immunization Aged Out No lo nger eligible based on patient's age to complete this topic
--- OUTSIDE RECORDS SUMMARY | 2025-02-02 17:23 | XMS_ITS | Encounter Summary ---
Author Organization [facility] Address [address] [place] [address] Care Team Providers Care Dried Yeast Supervisor Name Role Phone Keli Smith MD Primary Care Provider [phone] Encounter Details Date Type Department Care Team (Late st Contact Info) Description 05/19/2002 Outpatient Historical [facility] Internal Medicine - [place] [address] [place] [phone] Vince Suazo MD NO ADDRESS ON FILE Social History Tobacco Use Types Packs/Day Years Used Date Smoking Tobacco: Never Assessed Comments Unknown Sex and Gender Information Value Date Recorded Sex Assigned at Not on file Legal Sex Female 5:04 AM ADVERTISING JOB TITLES Gender Identity Not on file Sexual Orientation Not on file documented as of this encounter Plan of Treatment Not on file documented as of this encounter Visit Diagnoses Not on filedocumented in this encounter Care Teams Dried Yeast Supervisor Relationship Specialty Start Date End Date Keli Smith MD [address] [place] [phone] PCP - General Family Practice 08/22/21 documented as of this encounter
--- OUTSIDE RECORDS SUMMARY | 2025-02-02 17:23 | XMS_ITS | Encounter Summary ---
Author Organization [facility] Address [address] [place] [address] Care Team Providers Care Clothing Sorter Name Role Phone Keli Smith MD Primary Care Provider [phone] Encounter Details Date Type Department Care Team (Latest Contact Info) Description 08/28/2005 Outpatient [facility] Murphy Wilson MD [address] [place] [phone] CEREBRAL CYSTS (Primary Dx) Social History Tobacco Use Types Packs/Day Years Used Date Smoking Tobacco: Never Assessed Comments Unknown Sex and Gender Information Value Date Recorded Sex Assigned at Not on file Legal Sex Female 5:[address]INTENANCE SUPERVIS[address] Gender Identity Not on file Sexual Orientation Not on file documented as of this encounter Plan of Treatment Not on file documented as of this encounter Visit Diagnoses Diagnosis Cerebral cysts- Primary documented in this encounter Care Teams Clothing Sorter Relationship Specialty Start Date End Date Keli Smith MD [address] [place] [phone] PCP - General Family Practice 08/22/21 documented as of this encounter
--- OUTSIDE RECORDS SUMMARY | 2025-02-02 17:23 | XMS_ITS | Encounter Summary ---
Author Organization [facility] Address 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
--- OUTSIDE RECORDS SUMMARY | 2025-02-02 17:23 | XMS_ITS | Patient Health Summary ---
Author Organization [facility] Address [address] [facility] [place] [address] Care Team Providers Care Hvac Tech Name Role Phone Jamal Jama MD Primary Care Provider [phone] Note from [facility],non-owned Affiliates and Associated Physician Practices is amultiple site organization consisting of ambulatory clinics and hospital sitesin [place], [place], [place] and [place]. This disclosure is being madepursuant to the Care Everywhere program and may not contain all information available regarding this patient. Last updated 18.[facility] Allergies No known active allergies Medications * Be aware that medications may not be up to date on this document. Alwaysverify current medications with the patient. * benzonatate (TESSALON) 200 MG capsule(Started 10/20/2017) Take 1 capsule by mouth 3 times daily as needed for Cough Social History Tobacco Use Types Packs/Day Years Used Date Smoking Tobacco: Never Smokeless Tobacco: Never Sex and Gender Information Value Date Recorded Sex Assigned at Not on file Gender Identity Not on file Sexual Orientation Not on file Last Filed Vital Signs Vital Sign Reading Time Taken Comments Blood Pressure 144/82 10/20/2017 4:26 PM DIRECT MAIL CLERK Pulse 103 10/20/2017 4:26 PM DIRECT MAIL CLERK Temperature 37 C (98.6 F) 10/20/2017 4:26 PM DIRECT MAIL CLERK Respiratory Rate 16 10/20/2017 4:26 PM DIRECT MAIL CLERK Oxygen Saturation 99% 10/20/2017 4:26 PM DIRECT MAIL CLERK Inhaled Oxygen Concentration - - Weight 73.9 kg (163 lb) 10/20/2017 4:26 PM DIRECT MAIL CLERK Height 172.7 cm (5' 8 ) 10/20/2017 4:26 PM DIRECT MAIL CLERK Body Mass Index 24.78 10/20/2017 4:26 PM DIRECT MAIL CLERK Procedures * STREP A SCREEN - POINT OF CARE (AMB) STL(Performed 10/20/2017) Performed for Acute laryngitis Results * STREP A SCREEN (10/20/2017 4:42 PM DIRECT MAIL CLERK) Strep A Rapid POCT Negative Negative Strep A Internal Control Present Lot # [id number] Expiration Date 05 09 2019 Throat ENTIRE THROAT (SURFACE REGION OF NECK) / Unknown 10/20/2017 4:42 PM DIRECT MAIL CLERK Vicki Mesa BRICK [facility] [facility] DEVELOPER LAB - POINT OF CA RE ORDERABLES Care Teams Hvac Tech Relationship Specialty Start Date End Date Jamal Jama MD PCP - General Family Medicine 08/18/17
--- OUTSIDE RECORDS SUMMARY | 2025-02-02 17:23 | XMS_ITS | Encounter Summary ---
Author Organization [facility] Address [address] [place] [address] Care Team Providers Care Wood Mechanist Name Role Phone Keli Smith MD Primary Care Provider [phone] Encounter Details Date Type Department Care Team (Late st Contact Info) Description 02/09/1999 Outpatient Historical [facility] Internal Medicine - [place] [address] [place] [phone] [place] [address] [place] [phone] Social History Tobacco Use Types Packs/Day Years Used Date Smoking Tobacco: Never Assessed Comments Unknown Sex and Gender Information Value Date Recorded Sex Assigned at Not on file Legal Sex Female 5:04 AM RELAY TECHNICIAN Gender Identity Not on file Sexual Orientation Not on file documented as of this encounter Plan of Treatment Not on file documented as of this encounter Visit Diagnoses Not on filedocumented in this encounter Care Teams Wood Mechanist Relationship Specialty Start Date End Date Keli Smith MD [address] [place] [address] PCP - General Family Practice 08/22/21 documented as of this encounter
[2025-02-02] MEDS: KETOROLAC 30 MG/ML VIAL (*BKC) IM (17:52)
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
--- OUTSIDE RECORDS SUMMARY | 2025-02-02 18:11 | XMS_ITS | Encounter Summary ---
Author Organization [facility] Address [address] [place] [address] Care Team Providers Care Eradicator Name Role Phone Keli Smith MD Primary Care Provider [phone] Encounter Details Date Type Department Care Team (Late st Contact Info) Description 08/28/2005 Outpatient Historical [facility] Maternal and Ground Floor [address] [facility] [address] [place] [address] Louie Caicedo MD NO ADDRESS ON FILE Social History Tobacco Use Types Packs/Day Years Used Date Smoking Tobacco: Never Assessed Comments Unknown Sex and Gender Information Value Date Recorded Sex Assigned at Not on file Legal Sex Female 5:04 AM EQUAL OPPORTUNITY ASSISTANT Gender Identity Not on file Sexual Orientation Not on file documented as of this encounter Plan of Treatment Not on file documented as of this encounter Visit Diagnoses Not on filedocumented in this encounter Care Teams Eradicator Relationship Specialty Start Date End Date Keli Smith MD [address] [place] [phone] PCP - General Family Practice 08/22/21 documented as of this encounter
--- OUTSIDE RECORDS SUMMARY | 2025-02-02 18:11 | XMS_ITS | Encounter Summary ---
Author Organization [employer] Address [address] [place] [address] Care Team Providers Care Certified Breastfeeding Educator Name Role Phone Keli Smith MD Primary Care Provider [phone] Encounter Details Date Type Department Care Team (Latest Contact Info) Description 01/14/2006 Inpatient Historical [facility] Dave Angel MD NO ADDRESS ON FILE Murphy Wilson MD [facility] 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) Social History Tobacco Use Types Packs/Day Years Used Date Smoking Tobacco: Never Assessed Comments Unknown Sex and Gender Information Value Date Recorded Sex Assigned at Not on file Legal Sex Female 5:04 AM SENIOR QC TECHNICIAN Gender Identity Not on file Sexual Orientation Not on file documented as of this encounter Plan of Treatment Not on file documented as of this encounter Procedures Procedure Name Priority Date/Time Associated Diagnosis Comments CBC WITH DIFFERENTIAL Routine 01/13/2006 3:00 PM SENIOR QC TECHNICIAN CBC WITH DIFFERENTIAL Routine 01/13/2006 3:00 PM SENIOR QC TECHNICIAN URINALYSIS W/REFLEX MICROSCOPIC Routine 01/13/2006 3:00 PM SENIOR QC TECHNICIAN documented in this encounter Results * (ABNORMAL) CBC WITH DIFFERENTIAL (01/13/2006 3:00 PM SENIOR QC TECHNICIAN) NEUTROPHILS 71(H) 45 - 70 % INTERFAC [...] 0.20 K/uL INTERFACE SYSTEM 01/13/2006 3:00 PM SENIOR QC TECHNICIAN us Murphy Wilson MD HEMATOLOGY ORDERABLES Final Result Performing Organization Address City/State/[facility] Co de Phone Number INTERFACE SYSTEM Refer to clinic/hospital department * (ABNORMAL) CBC WITH DIFFERENTIAL (01/13/2006 3:00 PM SENIOR QC TECHNICIAN) WBC 9.9(H) 4.0 - 9.8 K/uL INTERFACE [...] 12.4 fL INTERFACE SYSTEM 01/13/2006 3:00 PM SENIOR QC TECHNICIAN Murphy Wilson MD HEMATOLOGY ORDERABLES Final Result Performing Organization Address City/[facility]/ZIP Co de Phone Number INTERFACE SYSTEM Refer to clinic/hospital department * (ABNORMAL) URINALYSIS (01/13/2006 3:00 PM SENIOR QC TECHNICIAN) COLOR UA Yellow INTERFACE SYSTEM CLARITY UA [...] Many /HPF INTERFACE SYSTEM 01/13/2006 3:00 PM SENIOR QC TECHNICIAN us Murphy Wilson MD URINE ORDERABLES Final Resul t Performing Organization Address City/[facility]/ZIP Co de Phone Number INTERFACE SYSTEM Refer to clinic/hospital department documented in this encounter Visit Diagnoses Diagnosis Breech presentation without mention of version, delivered- Primary documented in this encounter Care Teams Certified Breastfeeding Educator Relationship Specialty Start Date End Date Keli Smith MD [address] [place] [phone] PCP - General Family Practice 08/22/21 documented as of this encounter
--- OUTSIDE RECORDS SUMMARY | 2025-02-02 18:11 | XMS_ITS | Encounter Summary ---
Author Organization [facility] Address [address] [place] [address] Care Team Providers Care Rug Receiving Clerk Name Role Phone Keli Smith MD Primary Care Provider [phone] Encounter Details Date Type Department Care Team (Late st Contact Info) Description 09/28/2003 Outpatient Historical [facility] Internal Medicine - [place] [address] [place] [phone] [place] [address] [place] [phone] Social History Tobacco Use Types Packs/Day Years Used Date Smoking Tobacco: Never Assessed Comments Unknown Sex and Gender Information Value Date Recorded Sex Assigned at Not on file Legal Sex Female 5:04 AM MOLECULAR SPECTROSCOPIST Gender Identity Not on file Sexual Orientation Not on file documented as of this encounter Last Filed Vital Signs Vital Sign Reading Time Taken Comments Blood Pressure 122/80 09/28/2003 11:30 AM MOLECULAR SPECTROSCOPIST Pulse - - Temperature - - Respiratory Rate - - Oxygen Saturation - - Inhaled Oxygen Concentration - - Weight 62.6 kg (138 lb) 09/28/2003 11:30 AM MOLECULAR SPECTROSCOPIST Height - - Body Mass Index - - documented in this encounter Plan of Treatment Not on file documented as of this encounter Visit Diagnoses Not on filedocumented in this encounter Care Teams Rug Receiving Clerk Relationship Specialty Start Date End Date Keli Smith MD [address] [place] [address] PCP - General Family Practice 08/22/21 documented as of this encounter
--- OUTSIDE RECORDS SUMMARY | 2025-02-02 18:11 | XMS_ITS | Encounter Summary ---
Author Organization [facility] Address [address] [place] [address] Care Team Providers Care Windows Technical Specialist Name Role Phone Keli Smith MD Primary Care Provider [phone] Encounter Details Date Type Department Care Team (Late st Contact Info) Description 06/15/[address] [facility] Internal Medicine - [place] [address] [place] [phone] [place] [address] [place] [phone] Social History Tobacco Use Types Packs/Day Years Used Date Smoking Tobacco: Never Assessed Comments Unknown Sex and Gender Information Value Date Recorded Sex Assigned at Not on file Legal Sex Female 5:04 AM CREDIT SUPPORT COUNSELOR Gender Identity Not on file Sexual Orientation [...] on filedocumented in this encounter Care Teams Windows Technical Specialist Relationship Specialty Start Date End Date Keli Smith MD [address] [place] [phone] PCP - General Family Practice 08/22/21 documented as of this encounter
--- OUTSIDE RECORDS SUMMARY | 2025-02-02 18:11 | XMS_ITS | Encounter Summary ---
Author Organization [facility] Address [address] [place] [address] Care Team Providers Care Parimutuel Ticket Checker Name Role Phone Keli Smith MD Primary Care Provider [phone] Encounter Details Date Type Department Care Team (Late st Contact Info) Description 11/13/2000 Outpatient Historical [facility] Internal Medicine - [place] [address] [place] [phone] [place] [address] [place] [phone] Social History Tobacco Use Types Packs/Day Years Used Date Smoking Tobacco: Never Assessed Comments Unknown Sex and Gender Information Value Date Recorded Sex Assigned at Not on file Legal Sex Female 5:04 AM SERVICES EXECUTIVE Gender Identity Not on file Sexual Orientation Not on file documented as of this encounter Plan of Treatment Not on file documented as of this encounter Visit Diagnoses Not on filedocumented in this encounter Care Teams Parimutuel Ticket Checker Relationship Specialty Start Date End Date Keli Smith MD [address] [place] [address] PCP - General Family Practice 08/22/21 documented as of this encounter
--- OUTSIDE RECORDS SUMMARY | 2025-02-02 18:11 | XMS_ITS | Encounter Summary ---
Author Organization [facility] [place] [facility] Address [address] [place] [address] Care Team Providers Care Bottling Machine Operator Name Role Phone Keli Smith MD Primary Care Provider [phone] Encounter Details Date Type Department Care Team (Late st Contact Info) Description 02/09/1999 Outpatient Historical [facility] Internal Medicine - [place] [address] [place] [phone] [place] [address] [place] [phone] Social History Tobacco Use Types Packs/Day Years Used Date Smoking Tobacco: Never Assessed Comments Unknown Sex and Gender Information Value Date Recorded Sex Assigned at Not on file Legal Sex Female 5:04 AM FLAT LOCK MACHINE 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
--- OUTSIDE RECORDS SUMMARY | 2025-02-02 18:11 | XMS_ITS | Encounter Summary ---
Author Organization [facility] Address [address] [place] [address] Care Team Providers Care Senior Librarian Name Role Phone Keli Smith MD Primary Care Provider [phone] Encounter Details Date Type Department Care Team (Latest Contact Info) Description 08/24/2008 Outpatient Historical [facility] Murphy Wilson MD [facility] [address] [address] Deliv; Normal Delivery Social History Tobacco Use Types Packs/Day Years Used Date Smoking Tobacco: Never Assessed Comments Unknown Sex and Gender Information Value Date Recorded Sex Assigned at Not on file Legal Sex Female 5:04 AM MANNEQUIN MOUNTER Gender Identity Not on file Sexual Orientation [...] 2:04 PM CDT) DIRECT ANTIGLOBULIN POLY Negative [facility] 08/24/2008 2:04 PM CDT Murphy Wilson MD BLOOD BANK ORDERABLES Final Result Performing Organization Address City/[facility]/ZIP Co de Phone Number INTERFACE SYSTEM Refer to clinic/hospital department [facility] CLIA# [id number] [address] [facility] [place] [address] * ANTIBODY IDENTIFICATION (08/24/2008 2:04 PM CDT) ANTIBODY ID PANEL SolidPhase Ab Only [facility] 08/24/2008 2:04 PM CDT Murphy Wilson MD BLOOD BANK ORDERABLES Final Result Performing Organization Address [facility] de Phone Number INTERFACE SYSTEM Refer to clinic/hospital department [facility] CLIA# [id number] [address] [place] [place] [address] * TYPE AND SCREEN (08/24/2008 2:04 PM CDT) HISTORY CHECK History Checked [facility] SPECIMEN LIFE 3 days from drawdate [facility] ABO/RH TYPE A Positive [facility] ANTIBODY SCREEN Positive [facility] Blood specimen (specimen) 08/24/2008 2:04 PM CDT Murphy Wilson MD BLOOD BANK ORDERABLES Edited Performing Organization Address City/[facility] Co de Phone Number INTERFACE SYSTEM Refer to clinic/hospital department [facility] CLIA# [id number] [address] [place] [address] * (ABNORMAL) URINALYSIS (08/24/2008 2:04 PM CDT) KETONES UA Negative Negative [facility] WBC UA 3 0 - 5 /HPF [facility] CLARITY UA Slt. Cloudy(A) Clear [facility] PROTEIN UA Negative Negative [facility] EPITHELIAL CELLS, URINE 5-10 /HPF [facility] BILIRUBIN UA Negative Negative [facility] LEUKOCYTE ESTERASE UA 2+(A) Negative [facility] RBC UA 1 0 - 4 /HPF [facility] SPECIFIC GRAVITY UA 1.006 1.001 - 1.035 [facility] BLOOD UA Negative Negative [facility] GLUCOSE UA Negative Negative [facility] COLOR UA Pale Yellow [facility] NITRITE UA Negative Negative [facility] UROBILINOGEN UA <1 <=1 mg/dL [facility] BACTERIA UA 1+(A) None Seen /HPF [facility] PH UA 6.0 5.0 - 8.0 [facility] Urine specimen (specimen) 08/24/2008 2:04 PM CDT 08/24/2008 2:19 PM CDT us Murphy Wilson MD URINE ORDERABLES Final Resul t Performing Organization Address [facility] Co de Phone Number INTERFACE SYSTEM Refer to clinic/hospital department [facility] CLIA# [id number] [address] [place] [address] * CBC WITH DIFFERENTIAL (08/24/2008 2:04 PM CDT) RBC 4.06 3.90 - 4.90 M/uL [facility] MCHC 33.9 31.5 - 35.5 % [facility] MCV 88.7 82.0 - 99.0 fL [facility] PLATELETS 253 140 - 350 K/uL [facility] HEMOGLOBIN 12.2 11.8 - 14.8 g/dL [facility] RDW 13.5 11.5 - 14.5 % [facility] WBC 8.8 4.0 - 9.8 K/uL [facility] MCH 30.0 27.2 - 32.6 pg [facility] MPV 9.8 9.3 - 12.4 fL [facility] HEMATOCRIT 36.0 35.5 - 44.0 % [facility] RDW-STDEV 43.4 37.1 - 48.7 fL [facility] MONOCYTE ABSOLUTE 0.65 0.10 - 1.30 K/uL [facility] NEUTROPHILS 69 45 - 70 % [facility] NEUTROPHIL ABSOLUTE 6.04 1.90 - 7.00 K/uL [facility] EOSINOPHILS 1 0 - 7 % [facility] BASOPHILS ABSOLUTE 0.01 0.00 - 0.20 K/uL [facility] LYMPHOCYTES 23 16 - 45 % [facility] LYMPHOCYTE ABSOLUTE 2.02 0.70 - 4.50 K/uL [facility] BASOPHILS 0 0 - 2 % [facility] EOSINOPHIL ABSOLUTE 0.06 0.00 - 0.70 K/uL [facility] MONOCYTES 7 3 - 13 % [facility] Blood specimen (specimen) 08/24/2008 2:04 PM CDT 08/24/2008 2:19 PM CDT us Murphy Wilson MD HEMATOLOGY ORDERABLES Edited INTERFACE SYSTEM Refer to clinic/hospital department [facility] CLIA# [id number] [address] [place] [address] documented in this encounter Visit Diagnoses Diagnosis delivery, without mention of indication, delivered, with or without mention of antepartum condition Normal delivery documented in this encounter Care Teams Senior Librarian Relationship Specialty Start Date End Date Keli Smith MD [address] [place] [address] PCP - General Family Practice 08/22/21 documented as of this encounter
--- OUTSIDE RECORDS SUMMARY | 2025-02-02 18:11 | XMS_ITS | Encounter Summary ---
Author Organization [facility] Address [address] [place] [address] Care Team Providers Care Structural Architect Name Role Phone Keli Smith MD Primary Care Provider [phone] Encounter Details Date Type Department Care Team (Latest Contact Info) Description 06/15/2003 Outpatient Historical [facility] SH[facility] Lindsey, [place] [address] [place] [address] ELB/FOREARM/WRST INJURY NOS (Primary Dx) Social History Tobacco Use Types Packs/Day Years Used Date Smoking Tobacco: Never Assessed Comments Unknown Sex and Gender Information Value Date Recorded Sex Assigned at Not on file Legal Sex Female 5:04 AM ROD PILER Gender Identity Not on file Sexual Orientation Not on file documented as of this encounter Plan of Treatment Not on file documented as of this encounter Visit Diagnoses Diagnosis Injury, other and unspecified, elbow, forearm, and wrist- Primary documented in this encounter Care Teams Structural Architect Relationship Specialty Start Date End Date Keli Smith MD [address] [place] [address] PCP - General Family Practice 08/22/21 documented as of this encounter
--- OUTSIDE RECORDS SUMMARY | 2025-02-02 18:11 | XMS_ITS | Clinical Summary ---
Author Organization [facility] Address [address] [place] [address] Phone Care Team Providers Care Credentialing Manager Name Role Phone Keli Smith MD Primary Care Provider [phone] Allergies Active Allergy Reactions Criticality Noted Date [...] Data STL ABSTRACTION Provider, Abstract 01/26/[address] [facility] DESK TOP PUBLISHER - [facility] [place] [address] [facility] [address] [place] [address] Murphy Wilson MD 01/26/[address] [facility] DESK TOP PUBLISHER [facility] [place] [address] [facility] [address] [place] [address] Murphy Wilson MD Surgery 01/25/2025 3:30 PM [facility] Office Visit [facility] DESK TOP PUBLISHER [facility] [place] [address] [place] [address] Murphy Wilson MD Dysfunctional uterine bleeding (Primary Dx); Submucous leiomyoma of uterus 01/25/2025 3:00 PM [facility] Ancillary Procedure [facility] DESK TOP PUBLISHER [facility] [place] [address] [place] [address] Murphy Wilson MD Abnormal uterine bleeding (AUB) 01/12/2025 External Device Data STL ABSTRACTION Provider, Abstract 01/04/2025 External Device Data STL ABSTRACTION Provider, Abstract 01/04/2025 External Device Data STL ABSTRACTION Provider, Abstract 01/04/2025 External Device Data STL ABSTRACTION Provider, Abstract 01/03/2025 2:20 PM [facility] Office Visit [facility] DESK TOP PUBLISHER [facility] [place] [address] [facility] [address] [place] [address] Murphy Wilson MD Dysfunctional uterine bleeding (Primary Dx); Declined influenza vaccine 12/29/[address] [facility] Women's Health Clinical Support [address] [place] [address] Candace Goodson RN Vaginal Bleeding from Last [...] on file Legal Sex Female 5:04 AM [facility] Gender Identity Not on file Sexual Orientation Not on file Occupation Industry Job Start Date Job End Date stay at home Not on file Not on file Not on file Last Filed Vital Signs Vital Sign Reading Time Taken Comments Blood Pressure 130/84 01/03/2025 2:20 PM [facility] Pulse 64 09/04/2021 9:25 AM CDT Temperature 36.3 C (97.3 F) 09/04/2021 9:11 AM CDT Respiratory Rate 16 09/04/2021 9:25 AM CDT Oxygen Saturation 98% 09/04/2021 9:25 AM CDT Inhaled Oxygen Concentration - - Weight 83.9 kg (185 lb) 01/03/2025 2:20 PM [facility] Height 172.7 cm (5' 8 ) 09/04/2021 [...] US PELVIC TRANSVAGINAL Routine 01/25/2025 3:26 PM [facility] Abnormal uterine bleeding (AUB) COLONOSCOPY REPORT 09/04/2021 9: 12 AM CDT CERV/VAG CYTO SCREEN PAP W/HPV Routine 06/27/2021 1:07 PM CDT Screening for cervical cancer MAMMO DIAGNOSTIC UNI RIGHT W OR WO CAD Routine 07/22/2017 10:12 AM CDT Mammogram abnormal from Last 3 Months or Most Recently Relevant to Health Maintenance Results * US PELVIC TRANSVAGINAL (01/25/2025 3:26 PM [facility]) Anatomical Region Laterality Modality Pelvis Ultrasound 01/25/2025 3:21 PM [facility] 01/25/2025 3:48 PM [facility] PELVIC ULTRASOUND ----- Pat. Name: BRITTANY HALL Study Date: 01/25/2025 3:21pm Pat. NO: [id number] Referring MD: MURPHY WILSON Site: [address] Forms Designer: Dot Del Cid RDMS : [id number] Age: 50 ----- INDICATION ----- Postmenopausal Bleeding CODING ----- Diagnoses N95.0: Postmenopausal bleeding Procedures 73423: Ultrasound non OB transvaginal METHOD ----- CHART CLERK Transvaginal US Examination UTERUS ----- Long 102 [...] Procedure Note Murphy Wilson MD - 01/25/2025 [facility] PELVIC ULTRASOUND ----- Pat. Name:Aaron HALL Date:01/25/2025 3:21pm Pat. NO: [id number] MD:MURPHY WILSON Site:[place] [address]ASonographer:Dot Del Cid RDMS :[id number]:50 ----- INDICATION ----- Postmenopausal Bleeding CODING ----- Diagnoses N95.0: Postmenopausal bleeding Procedures 88213: Ultrasound non OB transvaginal METHOD ----- CHART CLERK Transvaginal US Examination UTERUS ----- Long 102 [...] Bains MD - 09/04/2021 9:11 AM CDT [facility] Endoscopy Patient Name: Brittany Hall Procedure Date: [...] of Addenda: [address]; [place] [address] Louie Bains MD GI PROCEDURE ORDERABL ES Final Result * CERV/VAG CYTO SCREEN PAP W/HPV (06/27/2021 1:07 PM CDT) CLINICAL INFORMATION [facility] Comment:Information not prov ided LAST MENSTRUAL PERIOD [facility] Comment:INFORMATION NOT PROV IDED PREV PAP: [facility] Comment:INFORMATION NOT PROV IDED PREV BX: [facility] Comment:INFORMATION NOT PROV IDED SOURCE [facility] Comment:Endocervix ADEQUACY: [facility] Comment: Satisfactory for evaluation. Endocervical/transformation zone component absent. Age and/or menstrual status not provided PAP INTERP [facility] Comment:Negative for intraep ithelial lesion or malignancy. COMMENT [facility] Comment: This Pap test has been evaluated with computer assisted technology. VOCATIONAL REHABILITATION CONSULTANT: [facility] Comment: BES, CT(ASCP) CT screening location: [place] [address] [facility] SEE NOTE [facility] Comment: EXPLANATORY NOTE: The Pap is a [...] information. HPV E6/E7 Not Detected Not Detected [facility] Comment: Methodology: Weed Sprayer-Mediated Amplification This assay detects E6/E7 viral messenger RNA (mRNA) from 14 high-risk HPV types (16,18,31,33,35,39,45,51,52,56,58,59,66,68). The analytical performance characteristics of this assay have been determined by [facility]. The modifications have not been cleared or approved by the FDA. This assay has been validated pursuant to the CLIA regulations and is used for clinical purposes. For additional information, please refer to http://education.[employer]/faq/FUU190p0 (This link if provided for information/ educational purposes only.) Test [facility]formed [facility]: [facility] [address] [place] [address] Louie Damon D.O., MPH SL Genital SWAB OF ENDOCERVIX / Unknown 06/27/2021 1:07 PM CDT 06/28/2021 2:36 AM CDT us Murphy Wilson MD PATHOLOGY/CYTOLOGY ORDERABLE S Final Result Performing Organization Address City/State/[facility] Co de Phone Number [facility] [address] [place] [address] * (ABNORMAL) MAMMO DIAGNOSTIC UNI [...] in the upper-outer right breast. DICTATED LOCATION: [facility] Narrative 07/22/2017 1:17 PM CDT RIGHT UNILATERAL [...] in the upper-outer right breast. DICTATED LOCATION: [facility] Jamal Jama MD MAMMO ORDERABLES Final Result from Last 3 Months or Most Recently Relevant to Health Maintenance Insurance Advance Directives For more information, please contact: [phone] * Full Code (Latest Code Status on File) Date Activated Date Inactivated Comments 01/20/2012 4:42 PM 01/20/2012 8:00 PM Care Teams Credentialing Manager Relationship Specialty Start Date End Date Keli Smith MD [address] [place] [address] PCP - General Family Practice 08/22/21
--- OUTSIDE RECORDS SUMMARY | 2025-02-02 18:11 | XMS_ITS | Encounter Summary ---
Author Organization [facility] Address [address] [place] [address] Care Team Providers Care Dough Sheeter Name Role Phone Keli Smith MD Primary Care Provider [phone] Encounter Details Date Type Department Care Team (Late st Contact Info) Description 10/31/2004 Outpatient Historical [facility] Internal Medicine - [place] [address] [place] [phone] [place] [address] [place] [phone] Social History Tobacco Use Types Packs/Day Years Used Date Smoking Tobacco: Never Assessed Comments Unknown Sex and Gender Information Value Date Recorded Sex Assigned at Not on file Legal Sex Female 5:04 AM ENVIRONMENTAL MARKETER Gender Identity Not on file Sexual Orientation Not on file documented as of this encounter Last Filed Vital Signs Vital Sign Reading Time Taken Comments Blood Pressure 110/60 10/31/2004 9:30 AM ENVIRONMENTAL MARKETER Pulse - - Temperature 38.9 C (102 F) 10/31/2004 9:30 AM ENVIRONMENTAL MARKETER Respiratory Rate - - Oxygen Saturation - - Inhaled Oxygen Concentration - - Weight 64.4 kg (142 lb) 10/31/2004 9:30 AM ENVIRONMENTAL MARKETER Height - - Body Mass Index - - documented in this encounter Plan of Treatment Not on file documented as of this encounter Visit Diagnoses Not on filedocumented in this encounter Care Teams Dough Sheeter Relationship Specialty Start Date End Date Keli Smith MD [address] [place] [address] PCP - General Family Practice 08/22/21 documented as of this encounter
--- OUTSIDE RECORDS SUMMARY | 2025-02-02 18:11 | XMS_ITS | Encounter Summary ---
Author Organization [facility] Address [address] [place] [address] Care Team Providers Care Contact Center Analyst Name Role Phone Keli Smith MD Primary Care Provider [phone] Encounter Details Date Type Department Care Team (Late st Contact Info) Description 08/30/1999 Outpatient Historical [facility] Internal Medicine - [place] [address] [place] [phone] [place] [address] [place] [phone] Social History Tobacco Use Types Packs/Day Years Used Date Smoking Tobacco: Never Assessed Comments Unknown Sex and Gender Information Value Date Recorded Sex Assigned at Not on file Legal Sex Female 5:04 AM CHIEF COMMERCIAL OFFICER Gender Identity Not on file Sexual Orientation Not on file documented as of this encounter Plan of Treatment Not on file documented as of this encounter Visit Diagnoses Not on filedocumented in this encounter Care Teams Contact Center Analyst Relationship Specialty Start Date End Date Keli Smith MD [address] [place] [address] PCP - General Family Practice 08/22/21 documented as of this encounter
--- OUTSIDE RECORDS SUMMARY | 2025-02-02 18:11 | XMS_ITS | Encounter Summary ---
Author Organization [facility] Address [address] [place] [address] Care Team Providers Care Engineer Remote Control Diesel Name Role Phone Keli Smith MD Primary Care Provider [phone] Encounter Details Date Type Department Care Team (Latest Contact Info) Description 08/28/2005 [facility] Murphy Wilson MD [address] [place] [phone] CEREBRAL CYSTS (Primary Dx) Social History Tobacco Use Types Packs/Day Years Used Date Smoking Tobacco: Never Assessed Comments Unknown Sex and Gender Information Value Date Recorded Sex Assigned at Not on file Legal Sex Female 5:04 AM CELLAR PUMPER Gender Identity Not on file Sexual Orientation Not on file documented as of this encounter Plan of Treatment Not on file documented as of this encounter Visit Diagnoses Diagnosis Cerebral cysts- Primary documented in this encounter Care Teams Engineer Remote Control Diesel Relationship Specialty Start Date End Date Keli Smith MD [address] [place] [phone] PCP - General Family Practice 08/22/21 documented as of this encounter
--- OUTSIDE RECORDS SUMMARY | 2025-02-02 18:12 | XMS_ITS | Encounter Summary ---
Author Organization [facility] Address [address] [place] [address] Care Team Providers Care Aircraft Landing Gear Inspector Name Role Phone Keli Smith MD Primary Care Provider [phone] Encounter Details Date Type Department Care Team (Late st Contact Info) Description 03/24/2002 Outpatient [facility] [address] [address] [place] [address] Abdoul [place] (Two) Social History Tobacco Use Types Packs/Day Years Used Date Smoking Tobacco: Never Assessed Comments Unknown Sex and Gender Information Value Date Recorded Sex Assigned at Not on file Legal Sex Female 5:04 AM ROLL OR TAPE EDGE MACHINE OPERATOR Gender Identity Not on file Sexual Orientation Not on file documented as of this encounter Plan of Treatment Not on file documented as of this encounter Visit Diagnoses Not on filedocumented in this encounter Care Teams Aircraft Landing Gear Inspector Relationship Specialty Start Date End Date Keli Smith MD [address] [place] [address] PCP - General Family Practice 08/22/21 documented as of this encounter
--- OUTSIDE RECORDS SUMMARY | 2025-02-02 18:12 | XMS_ITS | Encounter Summary ---
Author Organization [facility] Address [address] [place] [address] Care Team Providers Care Assistant Professor Of History Name Role Phone Keli Smith MD Primary Care Provider [phone] Encounter Details Date Type Department Care Team (Late st Contact Info) Description 06/02/2002 Outpatient Historical [facility] Internal Medicine - [place] [address] [place] [address] [place] [address] [place] [address] Social History Tobacco Use Types Packs/Day Years Used Date Smoking Tobacco: Never Assessed Comments Unknown Sex and Gender Information Value Date Recorded Sex Assigned at Not on file Legal Sex Female 5:04 AM COMPUTER PROGRAMMING SUPERVISOR Gender Identity Not on file Sexual Orientation Not on file documented as of this encounter Plan of Treatment Not on file documented as of this encounter Visit Diagnoses Not on filedocumented in this encounter Care Teams Assistant Professor Of History Relationship Specialty Start Date End Date Keli Smith MD [address] [place] [address] PCP - General Family Practice 08/22/21 documented as of this encounter
--- OUTSIDE RECORDS SUMMARY | 2025-02-02 18:12 | XMS_ITS | Encounter Summary ---
Author Organization [facility] Address [address] [place] [address] Care Team Providers Care Health And Safety Specialist Name Role Phone Keli Smith MD Primary Care Provider [phone] Encounter Details Date Type Department Care Team (Late st Contact Info) Description 01/20/2002 Outpatient [facility] [address] [place] [address] Abdoul [place] (Two) Social History Tobacco Use Types Packs/Day Years Used Date Smoking Tobacco: Never Assessed Comments Unknown Sex and Gender Information Value Date Recorded Sex Assigned at Not on file Legal Sex Female 5:04 AM BATCH OR CONTINUOUS STILL OPERATOR Gender Identity Not on file Sexual Orientation Not on file documented as of this encounter Plan of Treatment Not on file documented as of this encounter Visit Diagnoses Not on filedocumented in this encounter Care Teams Health And Safety Specialist Relationship Specialty Start Date End Date Keli Smith MD [address] [place] [address] PCP - General Family Practice 08/22/21 documented as of this encounter
--- OUTSIDE RECORDS SUMMARY | 2025-02-02 18:12 | XMS_ITS | Encounter Summary ---
Author Organization [facility] Address [address] [place] [address] Care Team Providers Care Feller Seam Operator Name Role Phone Keli Smith MD Primary Care Provider [phone] Encounter Details Date Type Department Care Team (Late st Contact Info) Description 03/10/2001 Outpatient [facility] [address] [facility] [address] [place] [address] Abdoul [place] (Two) Social History Tobacco Use Types Packs/Day Years Used Date Smoking Tobacco: Never Assessed Comments Unknown Sex and Gender Information Value Date Recorded Sex Assigned at Not on file Legal Sex Female 5:04 AM SEAL DELIVERY VEHICLE TEAM TECHNICIAN Gender Identity Not on file Sexual Orientation Not on file documented as of this encounter Plan of Treatment Not on file documented as of this encounter Visit Diagnoses Not on filedocumented in this encounter Care Teams Feller Seam Operator Relationship Specialty Start Date End Date Keli Smith MD [address] [place] [address] PCP - General Family Practice 08/22/21 documented as of this encounter
--- OUTSIDE RECORDS SUMMARY | 2025-02-02 18:12 | XMS_ITS | Encounter Summary ---
Author Organization [facility] [facility] Address [address] [place] [address] Care Team Providers Care Handle Finisher Name Role Phone Keli Smith MD Primary [...] on file Legal Sex Female 5:04 AM PASTE UP ARTIST Gender Identity Not on file Sexual Orientation Not on file Occupation Industry Job Start Date Job End Date stay at home Not on file Not on file Not on file documented as of this encounter Plan of Treatment Not on file documented as of this encounter Visit Diagnoses Not on filedocumented in this encounter Care Teams Handle Finisher Relationship Specialty Start Date End Date Keli Smith MD [address] [place] [address] PCP - General Family Practice 08/22/21 documented as of this encounter
--- OUTSIDE RECORDS SUMMARY | 2025-02-02 18:12 | XMS_ITS | Continuity of Care Document ---
Author Organization [facility] Address [address] [place] [address] Phone Care Team Providers Care Sales Operations Consultant Name Role Phone MD THOMAS GILBERT Unavailable Unavailable Advance Directives Directive Yes / No Effective Date File Name No Information Encounters Encounter Description Practice Location Reason(s) For Visit Diagnoses Date Provider Providers Copied on Encounter [facility], [address] [facility] [address] [facility], [place], [place], [id number], [place] tel:[phone] [facility] OUTPATIENT No Information MD RUTHIE THOMAS. [address] [place] [address], [id number], [place]. tel:[phone] Referring Provider: CEDRIC Hines, [address] [place], [address]. tel:[phone] Family History Family Member Type Diagnosis Age At Onset No Information Payers Payer name Insurance type Covered green party ID Authorsalomóna kuldip(s) [facility] POS [id number] CI [id number] Social History Type Description Quantity Date Captured Comments Sex Female Smoking Status No Information Chief Complaint And Reason For Visit No Information History Of Present Illness Encounter Date Complaint History Of Prese nt Illness No Information Instructions Date Instruction Additional Infor mation No Information Assessments Type Assessment Date No Information
--- OUTSIDE RECORDS SUMMARY | 2025-02-02 18:12 | XMS_ITS | Encounter Summary ---
Author Organization [facility] Address 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
--- OUTSIDE RECORDS SUMMARY | 2025-02-02 18:12 | XMS_ITS | Encounter Summary ---
Author Organization [facility] Address [address] [place] [address] Care Team Providers Care Crystalizer Operator Name Role Phone Keli Smith MD Primary Care Provider [phone] Encounter Details Date Type Department Care Team (Late st Contact Info) Description 03/21/1999 Outpatient Historical [facility] Internal Medicine - [place] [address] [place] [address] Carmen Berry MD [address] [facility] [address] [place] [address] Social History Tobacco Use Types Packs/Day Years Used Date Smoking Tobacco: Never Assessed Comments Unknown Sex and Gender Information Value Date Recorded Sex Assigned at Not on file 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
--- OUTSIDE RECORDS SUMMARY | 2025-02-02 18:12 | XMS_ITS | Encounter Summary ---
Author Organization [facility] Address 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
--- OUTSIDE RECORDS SUMMARY | 2025-02-02 18:12 | XMS_ITS | Referral Summary ---
Author Organization [facility] Address [address] [facility] [place] [address] Care Team Providers Care Stunner And Shackler Name Role Phone Jamal Jama MD Primary Care Provider [phone] Source Comments [facility],non-owned Affiliates and Associated Physician Practices is amultiple site organization consisting of ambulatory clinics and hospital sitesin [place], [place], [place] and [place]. This disclosure is being madepursuant to the Care Everywhere program and may not contain all information available regarding this patient. Last updated 18.[facility] Allergies No known active allergies Medications * [...] Comments Blood Pressure 144/82 10/20/2017 4:26 PM GENERAL UTILITY WORKER Pulse 103 10/20/2017 4:26 PM GENERAL UTILITY WORKER Temperature 37 C (98.6 F) 10/20/2017 4:26 PM GENERAL UTILITY WORKER Respiratory Rate 16 10/20/2017 4:26 PM GENERAL UTILITY WORKER Oxygen Saturation 99% 10/20/2017 4:26 PM GENERAL UTILITY WORKER Inhaled Oxygen Concentration - - Weight 73.9 kg (163 lb) 10/20/2017 4:26 PM GENERAL UTILITY WORKER Height 172.7 cm (5' 8 ) 10/20/2017 4:26 PM GENERAL UTILITY WORKER Body Mass Index 24.78 10/20/2017 4:26 PM GENERAL UTILITY WORKER Plan of Treatment Not on file Care Teams Stunner And Shackler Relationship Specialty Start Date End Date Jamal Jama MD PCP - General Family Medicine 08/18/17
--- OUTSIDE RECORDS SUMMARY | 2025-02-02 18:12 | XMS_ITS | Clinical Summary ---
Author Organization [facility] Address [address] [facility] [place] [address] Care Team Providers Care Park Manager Name Role Phone Jamal Jama MD Primary Care Provider [phone] Source Comments [facility] [employer],non-owned Affiliates and Associated Physician Practices is amultiple site organization consisting of ambulatory clinics and hospital sitesin [place], [place], [place] and [place]. This disclosure is being madepursuant to the Care Everywhere program and may not contain all information available regarding this patient. Last updated 18.[facility] [employer] Allergies No known active allergies Medications * [...] Comments Blood Pressure 144/82 10/20/2017 4:26 PM DYNAMITER Pulse 103 10/20/2017 4:26 PM DYNAMITER Temperature 37 C (98.6 F) 10/20/2017 4:26 PM DYNAMITER Respiratory Rate 16 10/20/2017 4:26 PM DYNAMITER Oxygen Saturation 99% 10/20/2017 4:26 PM DYNAMITER Inhaled Oxygen Concentration - - Weight 73.9 kg (163 lb) 10/20/2017 4:26 PM DYNAMITER Height 172.7 cm (5' 8 ) 10/20/2017 4:26 PM DYNAMITER Body Mass Index 24.78 10/20/2017 4:26 PM DYNAMITER Plan of Treatment Health Maintenance Due Date [...] age to complete this topic Care Teams Park Manager Relationship Specialty Start Date End Date Jamal Jama MD PCP - General Family Medicine 08/18/17
--- OUTSIDE RECORDS SUMMARY | 2025-02-02 18:12 | XMS_ITS | Patient Health Summary ---
Author Organization [facility] Address [address] [facility] [place] [address] Care Team Providers Care Sample Finisher Name Role Phone Jamal Jama MD Primary Care Provider [phone] Note from [facility],non-owned Affiliates and Associated Physician Practices is amultiple site organization consisting of ambulatory clinics and hospital sitesin [place], [place], [place] and [place]. This disclosure is being madepursuant to the Care Everywhere program and may not contain all information available regarding this patient. Last updated 18.[facility] Allergies No known active allergies Medications * [...] Comments Blood Pressure 144/82 10/20/2017 4:26 PM ORTHOPEDIC PHYSICIAN ASSISTANT Pulse 103 10/20/2017 4:26 PM ORTHOPEDIC PHYSICIAN ASSISTANT Temperature 37 C (98.6 F) 10/20/2017 4:26 PM ORTHOPEDIC PHYSICIAN ASSISTANT Respiratory Rate 16 10/20/2017 4:26 PM ORTHOPEDIC PHYSICIAN ASSISTANT Oxygen Saturation 99% 10/20/2017 4:26 PM ORTHOPEDIC PHYSICIAN ASSISTANT Inhaled Oxygen Concentration - - Weight 73.9 kg (163 lb) 10/20/2017 4:26 PM ORTHOPEDIC PHYSICIAN ASSISTANT Height 172.7 cm (5' 8 ) 10/20/2017 4:26 PM ORTHOPEDIC PHYSICIAN ASSISTANT Body Mass Index 24.78 10/20/2017 4:26 PM ORTHOPEDIC PHYSICIAN ASSISTANT Procedures * STREP A SCREEN - POINT OF CARE (AMB) STL(Performed 10/20/2017) Performed for Acute laryngitis Results * STREP A SCREEN (10/20/2017 4:42 PM ORTHOPEDIC PHYSICIAN ASSISTANT) Strep A Rapid POCT Negative Negative Strep A Internal Control Present Lot # [id number] Expiration Date 05 09 2019 Throat ENTIRE THROAT (SURFACE REGION OF NECK) / Unknown 10/20/2017 4:42 PM ORTHOPEDIC PHYSICIAN ASSISTANT Vicki Mesa TOBACCO WRAPPING MACHINE TENDER-MARKET RESEARCH INTERVIEWER LAB - POINT OF CA RE ORDERABLES Care Teams Sample Finisher Relationship Specialty Start Date End Date Jamal Jama MD PCP - General Family Medicine 08/18/17
--- OUTSIDE RECORDS SUMMARY | 2025-02-02 18:12 | XMS_ITS | Encounter Summary ---
Author Organization [employer] Address 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
--- OUTSIDE RECORDS SUMMARY | 2025-02-02 18:13 | XMS_ITS | Encounter Summary ---
Author Organization [facility] Address [address] [facility] Attn: Epic Prelude ADT [place] [address] Care Team Providers Care Receiving Teller Name Role Phone Keli Smith MD Primary Care Provider Encounter Details Date Type Department Care Team (Late st Contact Info) Description 06/12/1998 Outpatient Historical Conversion, History Social History Tobacco Use Types Packs/Day Years Used Date Smoking Tobacco: Never Assessed Comments Unknown Sex and Gender Information Value Date Recorded Sex Assigned at Not on file Legal Sex Female 5:04 AM CLINICAL APPEALS 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
--- OUTSIDE RECORDS SUMMARY | 2025-02-02 18:13 | XMS_ITS | Clinical Summary ---
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
== END 2025-02-02 18:22 | disposition home or self-care (01) ==
LOC: ANHED 17:59
PROVIDERS: Emergency Provider Student in an Organized Health Care Education/Training Program; PCP Family Medicine
DX: S80.01XA Contusion of right knee, initial encounter (principal); S20.211A Contusion of right front wall of thorax, initial encounter; I48.91 Unspecified atrial fibrillation; Z79.899 Other long term (current) drug therapy; V00.141A Fall from scooter (nonmotorized), initial encounter
CPT/HCPCS: 71100; 73562; 96372; 99284; J1885

== ENCOUNTER 2025-03-05 08:48 | Outpatient (CLI) | payer OTHER, SELFPAY ==
--- NOTE | ~2025-03-05 | MR_ITS ---
MRI of the right knee Clinical history: Pain Technique: Coronal proton density and proton density-weighted images, sagittal proton-density and T2 fat-sat images, and axial proton-density fat-saturated images were acquired. Findings: Posterior cruciate ligament is intact. Suspected complete tear at the proximal to midportio n of the ACL. Medial collateral ligament demonstrates probable partial tearing of the deep meniscofem oral fibers. Lateral collateral ligament complex is intact. Popliteus tendon is intact. There is probable oblique tear of the posterior horn of the lateral meniscus. No definite medial meni scal tear seen. There is focal mild to moderate chondromalacia along the medial patellar facet. There is minimal jenny dral thinning of the femoral trochlea. There is moderate chondral thinning at the medial femoral cond yle. Lateral compartment cartilage is well preserved. There is patchy minimal amorphous marrow edema in the proximal tibia and medial femoral condyle, nonspecific. Extensor mechanism is intact. Moderate to large joint effusion present. No Swift's cyst. Impression: Probable complete ACL tear. Probable partial tearing of the deep meniscofemoral fibers of the MCL. Probable oblique tear of the posterior horn of the lateral meniscus. Mild degenerative change, as above. Mild amorphous marrow edema in the proximal tibia and medial femoral condyle. Consider bone contusion s or stress response. Moderate to large joint effusion. Reviewed, dictated and finalized at location . Impression: Probable complete ACL tear. Probable partial tearing of the deep meniscofemoral fibers of the MCL. Probable oblique tear of the posterior horn of the lateral meniscus. Mild degenerative change, as above. Mild amorphous marrow edema in the proximal tibia and medial femoral condyle. C onsider bone contusions or stress response. Moderate to large joint effusion.
== END 2025-03-05 08:49 | disposition home or self-care (01) ==
LOC: MICIMG 08:48
PROVIDERS: PCP Family Medicine; Visit Provider Student in an Organized Health Care Education/Training Program
DX: M25.561 Pain in right knee (principal); M25.461 Effusion, right knee
CPT/HCPCS: 73721

== ENCOUNTER 2025-06-23 10:27 | Outpatient (CLI) | payer OTHER, SELFPAY ==
--- NOTE | 2025-06-23 10:38 | ECG_ITS ---
Test Date: 2025-06-23 11:01:10 Measurements Intervals [place] Rate: 77 P: 55 AK: 169 QRS: 33 QRSD: 83 T: 81 QT: 371 QTc: 420 Interpretive Statements SINUS RHYTHM POSSIBLE ANTERIOR MYOCARDIAL INFARCTION MINIMAL Q WAVES- INFERIOR LEADS BORDERLINE ST-T WAVE ABNORMALITY- ANTEROLAT/HIGH LAT LEADS ABNORMAL ECG No previous ECG available for comparison Electronically Signed On 06-24-2025 06:26:34 CDT by Tank Marr D.O.
--- OUTSIDE RECORDS SUMMARY | 2025-06-23 10:39 | XMS_ITS | Encounter Summary ---
Author Organization [facility] Address [address] [place] [address] Care Team Providers Care Radial Arm Saw Operator Name Role Phone Keli Smith MD Primary Care Provider [phone] Encounter Details Date Type Department Care Team (Late st Contact Info) Description 02/09/1999 Outpatient Historical [facility] Internal Medicine - [place] [address] [place] [address] [place] [address] [place] [address] Social History Tobacco Use Types Packs/Day Years Used Date Smoking Tobacco: Never Assessed Comments Unknown Sex and Gender Information Value Date Recorded Sex Assigned at Not on file Legal 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
--- OUTSIDE RECORDS SUMMARY | 2025-06-23 10:39 | XMS_ITS | Encounter Summary ---
Author Organization [facility] Address 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
--- OUTSIDE RECORDS SUMMARY | 2025-06-23 10:39 | XMS_ITS | Encounter Summary ---
Author Organization [facility] Address 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
--- OUTSIDE RECORDS SUMMARY | 2025-06-23 10:39 | XMS_ITS | Encounter Summary ---
Author Organization [facility] Address 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
--- OUTSIDE RECORDS SUMMARY | 2025-06-23 10:39 | XMS_ITS | Clinical Summary ---
Author Organization [facility] Address [address] [place] [address] Phone Care Team Providers Care Cherry Picker Operator Name Role Phone Keli Smith MD Primary Care Provider [phone] Allergies Active Allergy Reactions Criticality Noted Date [...] HOURS NEEDED FOR COLD SORES 12/10/2024 Active multivitamin (DAILY-JENSEN) tablet Take 1 Tablet by mouth daily. Active estradioL (Vivelle-Dot) 0.05 mg/24 hr patch Apply 1 Patch to skin as directed twice weekly. 4 Patch 3 04/25/2025 Active progesterone micronized (Prometrium) 100 mg Capsule Take 1 Capsule (100 mg) by mouth daily. 90 Capsule 3 04/25/2025 Active estradioL (VAGIFEM) [address] one table twice weekly per vagina at hs 24 Tablet 3 04/25/2025 Active Active Problems Problem Noted Date Diagnosed [...] Encounters Date Type Department Care Team Description 06/08/2025 External Device Data STL ABSTRACTION Provider, Abstract 06/07/2025 External Device Data STL ABSTRACTION Provider, Abstract 05/10/2025 External Device Data STL ABSTRACTION Provider, Abstract 04/26/2025 External Device Data STL ABSTRACTION Provider, Abstract 04/25/2025 9:40 AM CDT Video Visit [facility] PRINTED PRODUCTS ASSEMBLER [facility] [address] [address] Murphy Wilson MD Menopausal symptoms (Primary Dx) 04/14/2025 External Device Data STL ABSTRACTION Provider, Abstract 04/13/2025 External Device Data STL ABSTRACTION Provider, Abstract 04/12/2025 External Device Data STL ABSTRACTION Provider, Abstract 04/01/2025 Telephone [facility] Women's Health Clinical Support [address] [facility] [address] [place] [address] Haleigh Denis RN Question 03/30/2025 Results Follow-Up [facility] PRINTED PRODUCTS ASSEMBLER [facility] [address] [facility] [address] [place] [address] Murphy Wilson MD PROGESTERONE, TSH, ESTRADIOL, Additional followed-up results: 2 03/29/2025 3:10 PM CDT Office Visit [facility] PRINTED PRODUCTS ASSEMBLER [facility] [address] [facility] [address] [place] [address] Muprhy Wilson MD Postoperative follow-up (Primary Dx); Menopausal symptoms; Abnormal uterine bleeding due to endometrial polyp; Submucous uterine fibroid from Last 3 Months Immunizations Immunization Administration Dates Next Due (ADACEL/BOOSTRIX)(10 YR UP) TDAP VACCINE, 0.5ML, IM 06/24/2015 INFLUENZA VACCINE QUADRIVALENT 3 YR UP PF IM Influenza Seasonal Unspecified Formulation IM Family History Medical History Relation Name Comments Hypertension Brother Healthy Father Hemophilia Father on warfarin Cancer Mother Colon? hx Ovari an. 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 Gender Identity Not on file Sexual Orientation Not on file Occupation Industry Job Start Date Job End Date stay at home Not on file Not on file Not on file Last Filed Vital Signs Vital Sign Reading Time Taken Comments Blood Pressure 128/94 03/29/2025 3:05 PM CDT Pulse 64 09/04/2021 9:25 AM CDT Temperature 36.3 C (97.3 F) 09/04/2021 9:11 AM CDT Respiratory Rate 16 09/04/2021 9:25 AM CDT Oxygen Saturation 98% 09/04/2021 9:25 AM CDT Inhaled Oxygen Concentration - - Weight 81.6 kg (180 lb) 04/25/2025 9:27 AM CDT Height 172.7 cm (5' 8) 04/25/2025 9:27 AM CDT Body Mass Index 27.37 04/25/2025 9:27 AM CDT Plan of Treatment Health Maintenance Due Date Last Done Comments Pre-Diabetes and Diabetes Screening 1975 HEPATITIS B VACCINES (1 of 3 - 19+ 3-dose series) 1992 FIT-DNA Q 3 years 2018 FIT/FOBT Q 1 year 2018 Flex Sig/CT Colonography Q 5 years 2018 BREAST CANCER SCREENING 07/22/2018 07/22/20 17, 11/28/2016, 11/20/2016 ZOSTER VACCINE (1 of 2) 2023 PAP SMEAR 06/27/2024 06/27/2021, 03/24/2016 COVID-19 Vaccine (2 - 2023-2 5 season) 2024 11/28/2021 DTAP/TDAP/TD VACCINES (2 - T d or Tdap) 06/24/2025 06/24/2015 INFLUENZA VACCINE (#1) 2025 , 11/20/2016, 08/29/2011, Additional history exists CERVICAL CANCER SCREENING 06/27/2026 HPV/Cotest (21-29) 06/27/2026 06/27/2021 HPV/Cotest (30-65) 06/27/2026 06/27/2021 COLORECTAL SCREENING 09/04/2026 09/04/2021, 09/04/20 21 Colorectal Cancer Screening 09/04/2026 Procedures Procedure Name Priority Date/Time Associated Diagnosis Comments LUTEINIZING HORMONE Routine 03/29/2025 3 :26 PM CDT Menopausal symptoms FSH Routine 03/29/2025 3:26 PM CDT Menopausal symptoms ESTRADIOL Routine 03/29/2025 3:26 PM CDT Menopausal symptoms TSH Routine 03/29/2025 3:26 PM CDT Menopausal symptoms PROGESTERONE Routine 03/29/2025 3:26 PM CDT Menopausal symptoms COLONOSCOPY REPORT 09/04/2021 9: 12 AM CDT CERV/VAG CYTO SCREEN PAP W/HPV Routine 06/27/2021 1:07 PM CDT Screening for cervical cancer MAMMO DIAGNOSTIC UNI RIGHT W OR WO CAD Routine 07/22/2017 10:12 AM CDT Mammogram abnormal from Last 3 Months or Most Recently Relevant to Health Maintenance Results * PROGESTERONE (03/29/2025 3:26 PM CDT) PROGESTERONE <0.5 ng/mL [facility] Comment: Reference Ranges Female Follicular Phase < 1.0 Luteal Phase 2.6-21.5 Post menopausal < 0.5 1st Trimester 4.1-34.0 2nd Trimester 24.0-76.0 3rd Trimester 52.0-302.0 Test Performed at: [facility] [place] [address] [place] [address] Shahrzad-Kelle Torres Blood 03/29/2025 3:26 PM CDT 03/29/2025 3:27 PM CDT us Murphy Wilson MD CHEMISTRY ORDERABLES Final R esult [facility] [phone] [place] [address] [place] [address] * ESTRADIOL (03/29/2025 3:26 PM CDT) ESTRADIOL <15 pg/mL [facility] Comment: Reference Range Follicular Phase: 19-144 Mid-Cycle: 64-357 Luteal Phase: 56-214 Postmenopausal: < or = 31 Reference range established on post-pubertal patient population. No pre-pubertal reference range established using this assay. For any patients for whom low Estradiol levels are anticipated (e.g. males, pre-pubertal children and hypogonadal/post-menopausal females), the [facility] [employer] Estradiol, Ultrasensitive, LCMSMS assay is recommended (order code 32729). Please note: patients being treated with the drug fulvestrant (Faslodex(R)) have demonstrated significant interference in immunoassay methods for estradiol measurement. The cross reactivity could lead to falsely elevated estradiol test results leading to an inappropriate clinical assessment of estrogen status. [facility] order code [id number], Ultrasensitive LC/MS/MS demonstrates negligible cross reactivity with fulvestrant. Test Performed at: [place] [address] [place] [address] Tramaine Turcios Blood 03/29/2025 3:26 PM CDT 03/29/2025 3:27 PM CDT Murphy Wilson MD CHEMISTRY ORDERABLES Final R esult Performing Organization Address City/[facility]/ZIP Code Phone Number [facility] [phone] [place] [address] [place] [address] * TSH (03/29/2025 3:26 PM CDT) TSH 1.45 mIU/L [facility] Comment: Reference Range > or = 20 Years 0.40-4.50 Ranges First trimester 0.26-2.66 Second trimester 0.55-2.73 Third trimester 0.43-2.91 Test Performed at: [facility] [place] [address] [place] [address] Tramaine Turcios Blood 03/29/2025 3:26 PM CDT 03/29/2025 3:27 PM CDT Murphy Wilson MD CHEMISTRY ORDERABLES Final R esult Performing Organization Address City/[facility] Phone Number [facility] [phone] [place] [address] [place] [address] * LUTEINIZING HORMONE (03/29/2025 3:26 PM CDT) LUTEINIZING HORMONE 44.8 mIU/mL [facility] Comment: Reference Range Follicular Phase 1.9-12.5 Mid-Cycle Peak 8.7-76.3 Luteal Phase 0.5-16.9 Postmenopausal 10.0-54.7 Test Performed at: [facility] [address] [address] Tramaine Turcios MD Blood 03/29/2025 3:26 PM CDT 03/29/2025 3:27 PM CDT Murphy Wilson MD CHEMISTRY ORDERABLES Final R esult Performing Organization Address City/[facility]/ZIP Co de Phone Number [facility] [phone] [facility] [address] [place] [address] * FSH (03/29/2025 3:26 PM CDT) FSH 104.2 mIU/mL [facility] Comment: Reference Range Follicular Phase 2.5-10.2 Mid-cycle Peak 3.1-17.7 Luteal Phase 1.5- 9.1 Postmenopausal 23.0-116.3 Test Performed at: [facility] [address] [place] [address] Tramaine Turcios MD Blood 03/29/2025 3:26 PM CDT 03/29/2025 3:27 PM CDT Murphy Wilsno MD CHEMISTRY ORDERABLES Final R esult Performing Organization Address City/[facility] Co de Phone Number [facility] [phone] [facility] [address] [place] [address] * COLONOSCOPY REPORT (09/04/2021 9:12 AM CDT) Narrative Procedure Note Louie Bains MD - 09/04/2021 9:11 AM CDT [facility] Endoscopy Patient Name: Shruthi Gordon Procedure Date: 09/04/2021 Date of : 1975 [...] electronically. Number of Addenda: 0 [phone] [facility] [place] [address] Louie Bains MD GI PROCEDURE ORDERABL ES Final Result * CERV/VAG CYTO SCREEN PAP W/HPV (06/27/2021 1:07 PM CDT) CLINICAL INFORMATION [facility] Comment:Information not prov ided LAST MENSTRUAL PERIOD [facility] Comment:INFORMATION NOT PROV IDED PREV PAP: [facility] Comment:INFORMATION NOT PROV IDED PREV BX: [facility] Comment:INFORMATION NOT PROV IDED SOURCE [facility] Comment:Endocervix ADEQUACY: [facility] Comment: Satisfactory for evaluation. Endocervical/transformation zone component absent. Age and/or menstrual status not provided PAP INTERP [facility] Comment:Negative for intraep ithelial lesion or malignancy. COMMENT [facility] Comment: This Pap test has been evaluated with computer assisted technology. WHITE SUGAR BOILER: [facility] Comment: BES, CT(ASCP) CT screening location: [place] [address] [place] [address] SEE NOTE [facility] Comment: EXPLANATORY NOTE: The Pap is a [...] information. HPV E6/E7 Not Detected Not Detected [facility] Comment: Methodology: Resource Management Specialist-Mediated Amplification This assay detects E6/E7 viral messenger RNA (mRNA) from 14 high-risk HPV types (16,18,31,33,35,39,45,51,52,56,58,59,66,68). The analytical performance characteristics of this assay have been determined by [facility]. The modifications have not been cleared or approved by the FDA. This assay has been validated pursuant to the CLIA regulations and is used for clinical purposes. For additional information, please refer to http://education.[employer]/faq/ENZ519u1 (This link if provided for information/ educational purposes only.) Test Performed at: [facility] [address] [place] [address] Louie Damon D.O., MPH SL Genital SWAB OF ENDOCERVIX / Unknown 06/27/2021 1:07 PM CDT 06/28/2021 2:36 AM CDT Murphy Wilson MD PATHOLOGY/CYTOLOGY ORDERABLE S Final Result Performing Organization Address City/State/[facility] Co de Phone Number [facility] [address] [place] [address] * (ABNORMAL) MAMMO DIAGNOSTIC UNI [...] in the upper-outer right breast. DICTATED LOCATION: [facility] Narrative 07/22/2017 1:17 PM CDT RIGHT [...] 4B: Suspicious findings, intermediate concern. Procedure Note Primo Dalal MD - 07/22/2017 RIGHT UNILATERAL FULL FIELD [...] in the upper-outer right breast. DICTATED LOCATION: [facility] Jamal Jama MD MAMMO ORDERABLES Final Result from Last 3 Months or Most Recently Relevant to Health Maintenance Insurance [facility] [id number] Advance Directives For more information, please contact: [phone] * Full Code (Latest Code Status on File) Date Activated Date Inactivated Comments 01/20/2012 4:42 PM 01/20/2012 8:00 PM Care Teams Cherry Picker Operator Relationship Specialty Start Date End Date Keli Smith MD [address] [place] [address] PCP - General Family Practice 08/22/21
--- OUTSIDE RECORDS SUMMARY | 2025-06-23 10:39 | XMS_ITS | Encounter Summary ---
Author Organization [facility] Address [address] [place] [address] Care Team Providers Care Kidney Puller Name Role Phone Keli Smith MD Primary Care Provider [phone] Encounter Details Date Type Department Care Team (Late st Contact Info) Description 05/19/2002 Outpatient Historical [facility] Internal Medicine [facility] [address] [place] [address] Vince Suazo MD NO ADDRESS ON FILE Social History Tobacco Use Types Packs/Day Years Used Date Smoking Tobacco: Never Assessed Comments Unknown Sex and Gender Information Value Date Recorded Sex Assigned at Not on file Legal Sex Female 5:04 AM 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
--- OUTSIDE RECORDS SUMMARY | 2025-06-23 10:39 | XMS_ITS | Encounter Summary ---
Author Organization [facility] Address [address] [place] [address] Care Team Providers Care Accounts Payable Bookkeeper Name Role Phone Keli Smith MD Primary Care Provider [phone] Encounter Details Date Type Department Care Team (Late st Contact Info) Description 11/13/2000 Outpatient Historical [facility] Internal Medicine - [place] [address] [place] [address] [place] [address] [place] [address] Social History Tobacco Use Types Packs/Day Years Used Date Smoking Tobacco: Never Assessed Comments Unknown Sex and Gender Information Value Date Recorded Sex Assigned at Not on file Legal Sex Female 5:04 AM MARKETING INTERN Gender Identity Not on file Sexual Orientation Not on file documented as of this encounter Plan of Treatment Not on file documented as of this encounter Visit Diagnoses Not on filedocumented in this encounter Care Teams Accounts Payable Bookkeeper Relationship Specialty Start Date End Date Keli Smith MD [address] [place] [address] PCP - General Family Practice 08/22/21 documented as of this encounter
--- OUTSIDE RECORDS SUMMARY | 2025-06-23 10:39 | XMS_ITS | Encounter Summary ---
Author Organization [facility] Address [address] [place] [address] Care Team Providers Care Hematology Supervisor Name Role Phone Keli Smith MD Primary Care Provider [phone] Encounter Details Date Type Department Care Team (Late st Contact Info) Description 03/21/1999 Outpatient Historical [facility] Internal Medicine - [place] [address] [place] [address] Carmen Berry MD [address] [facility] [address] [place] [address] Social History Tobacco Use Types Packs/Day Years Used Date Smoking Tobacco: Never Assessed Comments Unknown Sex and Gender Information Value Date Recorded Sex Assigned at Not on file Legal Sex Female 5:04 AM 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
--- OUTSIDE RECORDS SUMMARY | 2025-06-23 10:39 | XMS_ITS | Encounter Summary ---
Author Organization [facility] Address [address] [place] [address] Care Team Providers Care Nephrology Nurse Name Role Phone Keli Smith MD Primary Care Provider Encounter Details Date Type Department Care Team (Late st Contact Info) Description 03/10/2001 Outpatient [facility] [address] [facility] [address] [place] [address] Abdoul Birmingham (Two) Social History Tobacco Use Types Packs/Day Years Used Date Smoking Tobacco: Never Assessed Comments Unknown Sex and Gender Information Value Date Recorded Sex Assigned at Not on file Legal Sex Female 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
--- OUTSIDE RECORDS SUMMARY | 2025-06-23 10:39 | XMS_ITS | Encounter Summary ---
Author Organization [facility] Address [address] [facility] Attn: Epic Prelude ADT [place] [address] Care Team Providers Care Automotive Shop Foreman Name Role Phone Keli Smith MD Primary Care Provider Encounter Details Date Type Department Care Team ([facility] st Contact Info) Description 06/12/1998 Outpatient Historical Conversion, History Social History Tobacco Use Types Packs/Day Years Used Date Smoking Tobacco: Never Assessed Comments Unknown Sex and Gender Information Value Date Recorded Sex Assigned at Not on file Legal Sex Female 5:04 AM FUR IRONER Gender Identity Not on file Sexual Orientation Not on file documented as of this encounter Plan of Treatment Not on file documented as of this encounter Visit Diagnoses Not on filedocumented in this encounter Care Teams Automotive Shop Foreman Relationship Specialty Start Date End Date Keli Smith MD [address] [place] [address] PCP - General Family Practice 08/22/21 documented as of this encounter
--- OUTSIDE RECORDS SUMMARY | 2025-06-23 10:39 | XMS_ITS | Encounter Summary ---
Author Organization [employer] [facility] Address [address] [place] [address] Care Team Providers Care Head End Desizing Machine Operator Name Role Phone Keli Smith MD Primary Care Provider Encounter Details Date Type Department Care Team (Latest Contact Info) Description 06/15/2003 Outpatient Historical [facility] SHAKIR Lindsey, [place] [address] [place] [address] ELB/FOREARM/WRST INJURY NOS (Primary Dx) Social History Tobacco Use Types Packs/Day Years Used Date Smoking Tobacco: Never Assessed Comments Unknown Sex and Gender Information Value Date Recorded Sex Assigned at Not on file Legal 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
--- OUTSIDE RECORDS SUMMARY | 2025-06-23 10:39 | XMS_ITS | Encounter Summary ---
Author Organization [facility] Address [address] [place] [address] Care Team Providers Care Gym Teacher Name Role Phone Keli Smith MD Primary Care Provider [phone] Encounter Details Date Type Department Care Team (Late st Contact Info) Description 09/28/2003 Outpatient Historical [facility] Internal Medicine - [place] [address] [place] [address] [place] [address] [place] [phone] Social History Tobacco Use Types Packs/Day Years Used Date Smoking Tobacco: Never Assessed Comments Unknown Sex and Gender Information Value Date Recorded Sex Assigned at Not on file Legal Sex Female 5:04 AM CELL MAKER Gender Identity Not on file Sexual Orientation Not on file documented as of this encounter Last Filed Vital Signs Vital Sign Reading Time Taken Comments Blood Pressure 122/80 09/28/2003 11:30 AM CELL MAKER Pulse - - Temperature - - Respiratory Rate - - Oxygen Saturation - - Inhaled Oxygen Concentration - - Weight 62.6 kg (138 lb) 09/28/2003 11:30 AM CELL MAKER Height - - Body Mass Index - - documented in this encounter Plan of Treatment Not on file documented as of this encounter Visit Diagnoses Not on filedocumented in this encounter Care Teams Gym Teacher Relationship Specialty Start Date End Date Keli Smith MD [address] [place] [address] PCP - General Family Practice 08/22/21 documented as of this encounter
--- OUTSIDE RECORDS SUMMARY | 2025-06-23 10:39 | XMS_ITS | Encounter Summary ---
Author Organization [facility] Address [address] [place] [address] Care Team Providers Care Bit Setter Name Role Phone Keli Smith MD Primary Care Provider [phone] Encounter Details Date Type Department Care Team (Late st Contact Info) Description 06/02/2002 Outpatient Historical [facility] Internal Medicine - [place] [address] [place] [address] [place] [address] [place] [address] Social History Tobacco Use Types Packs/Day Years Used Date Smoking Tobacco: Never Assessed Comments Unknown Sex and Gender Information Value Date Recorded Sex Assigned at Not on file Legal Sex Female 5:04 AM RAG WILLOW OPERATOR Gender Identity Not on file Sexual Orientation Not on file documented as of this encounter Plan of Treatment Not on file documented as of this encounter Visit Diagnoses Not on filedocumented in this encounter Care Teams Bit Setter Relationship Specialty Start Date End Date Keli Smith MD [address] [place] [address] PCP - General Family Practice 08/22/21 documented as of this encounter
--- OUTSIDE RECORDS SUMMARY | 2025-06-23 10:39 | XMS_ITS | Encounter Summary ---
Author Organization [employer] Address [address] [place] [address] Care Team Providers Care Thread Spinner Name Role Phone Keli Smith MD Primary Care Provider [phone] Encounter Details Date Type Department Care Team (Latest Contact Info) Description 01/14/2006 Inpatient Historical [facility] Dave Angel MD NO ADDRESS ON FILE Murphy Wilson MD [facility] [address] [address] BREECH PRESENTAT-DELIVER (Primary Dx) Social History Tobacco Use Types Packs/Day Years Used Date Smoking Tobacco: Never Assessed Comments Unknown Sex and Gender Information Value Date Recorded Sex Assigned at Not on file Legal Sex Female 5:04 AM HANDMADE TILE ARTIST Gender Identity Not on file Sexual Orientation Not on file documented as of this encounter Plan of Treatment Not on file documented as of this encounter Procedures Procedure Name Priority Date/Time Associated Diagnosis Comments CBC WITH DIFFERENTIAL Routine 01/13/2006 3:00 PM HANDMADE TILE ARTIST CBC WITH DIFFERENTIAL Routine 01/13/2006 3:00 PM HANDMADE TILE ARTIST URINALYSIS W/REFLEX MICROSCOPIC Routine 01/13/2006 3:00 PM HANDMADE TILE ARTIST documented in this encounter Results * (ABNORMAL) CBC WITH DIFFERENTIAL (01/13/2006 3:00 PM HANDMADE TILE ARTIST) NEUTROPHILS 71(H) 45 - 70 % INTERFAC [...] 0.20 K/uL INTERFACE SYSTEM 01/13/2006 3:00 PM HANDMADE TILE ARTIST Murphy Wilson MD HEMATOLOGY ORDERABLES Final Result Performing Organization Address City/[facility] Phone Number INTERFACE SYSTEM Refer to clinic/hospital department * (ABNORMAL) CBC WITH DIFFERENTIAL (01/13/2006 3:00 PM HANDMADE TILE ARTIST) WBC 9.9(H) 4.0 - 9.8 K/uL INTERFACE [...] 12.4 fL INTERFACE SYSTEM 01/13/2006 3:00 PM HANDMADE TILE ARTIST Murphy Wilson MD HEMATOLOGY ORDERABLES Final Result INTERFACE SYSTEM Refer to clinic/hospital department * (ABNORMAL) URINALYSIS (01/13/2006 3:00 PM HANDMADE TILE ARTIST) COLOR UA Yellow INTERFACE SYSTEM CLARITY UA [...] Many /HPF INTERFACE SYSTEM 01/13/2006 3:00 PM HANDMADE TILE ARTIST us Murphy Wilson MD URINE ORDERABLES Final Resul t INTERFACE SYSTEM Refer to clinic/hospital department documented in this encounter Visit Diagnoses Diagnosis Breech presentation without mention of version, delivered- Primary documented in this encounter Care Teams Thread Spinner Relationship Specialty Start Date End Date Keli Smith MD [address] [place] [address] PCP - General Family Practice 08/22/21 documented as of this encounter
--- OUTSIDE RECORDS SUMMARY | 2025-06-23 10:39 | XMS_ITS | Encounter Summary ---
Author Organization [facility] Address 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
--- OUTSIDE RECORDS SUMMARY | 2025-06-23 10:39 | XMS_ITS | Encounter Summary ---
Author Organization [facility] Address [address] [place] [address] Care Team Providers Care File Conversion Operator Name Role Phone Keli Smith MD Primary Care Provider [phone] Encounter Details Date Type Department Care Team (Late st Contact Info) Description 10/31/2004 Outpatient Historical [facility] Internal Medicine - [place] [address] [place] [address] [place] [address] [place] [address] Social History Tobacco Use Types Packs/Day Years Used Date Smoking Tobacco: Never Assessed Comments Unknown Sex and Gender Information Value Date Recorded Sex Assigned at Not on file Legal Sex Female 5:04 AM STNA Gender Identity Not on file Sexual Orientation Not on file documented as of this encounter Last Filed Vital Signs Vital Sign Reading Time Taken Comments Blood Pressure 110/60 10/31/2004 9:30 AM STNA Pulse - - Temperature 38.9 C (102 F) 10/31/2004 9:30 AM STNA Respiratory Rate - - Oxygen Saturation - - Inhaled Oxygen Concentration - - Weight 64.4 kg (142 lb) 10/31/2004 9:30 AM STNA Height - - Body Mass Index - - documented in this encounter Plan of Treatment Not on file documented as of this encounter Visit Diagnoses Not on filedocumented in this encounter Care Teams File Conversion Operator Relationship Specialty Start Date End Date Keli Smith MD [address] [place] [address] PCP - General Family Practice 08/22/21 documented as of this encounter
--- OUTSIDE RECORDS SUMMARY | 2025-06-23 10:39 | XMS_ITS | Encounter Summary ---
Author Organization [facility] Address [address] [place] [address] Care Team Providers Care Staff Radiation Therapist Name Role Phone Keli Smith MD Primary Care Provider [phone] Encounter Details Date Type Department Care Team (Late st Contact Info) Description 06/15/2003 Outpatient Historical [facility] Internal Medicine - [place] [address] [place] [address] [place] [address] [place] [address] Social History Tobacco Use Types Packs/Day Years Used Date Smoking Tobacco: Never Assessed Comments Unknown Sex and Gender Information Value Date Recorded Sex Assigned at Not on file 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
--- OUTSIDE RECORDS SUMMARY | 2025-06-23 10:40 | XMS_ITS | Clinical Summary ---
Author Organization [facility] Address [address] [place] [address] Care Team Providers Care Automatic Dispenser Mechanic Name Role Phone Jamal Jama MD Primary Care Provider [phone] Source Comments [facility],non-owned Affiliates and Associated Physician Practices is amultiple site organization consisting of ambulatory clinics and hospital sitesin [place], [place], [place] and [place]. This disclosure is being madepursuant to the Care Everywhere program and may not contain all information available regarding this patient. Last updated 18.[facility] Allergies No known active allergies Medications * Be aware that medications may not be up to date on this document. Alwaysverify current medications with the patient. benzonatate (TESSALON) 200 MG capsuleIndicati ons:Acute laryngitis Take 1 capsule by mouth 3 [...] Date Smoking Tobacco: Never Smokeless Tobacco: Never Comments No Sex and Gender Information Value Date Recorded Sex Assigned at Not on file Legal Sex Female 10:53 AM CDT Gender Identity Not on file Sexual Orientation Not on file Last Filed Vital Signs Vital Sign Reading Time Taken Comments Blood Pressure 144/82 10/20/2017 4:26 PM PELLET POST INSPECTOR Pulse 103 10/20/2017 4:26 PM PELLET POST INSPECTOR Temperature 37 C (98.6 F) 10/20/2017 4:26 PM PELLET POST INSPECTOR Respiratory Rate 16 10/20/2017 4:26 PM PELLET POST INSPECTOR Oxygen Saturation 99% 10/20/2017 4:26 PM PELLET POST INSPECTOR Inhaled Oxygen Concentration - - Weight 73.9 kg (163 lb) 10/20/2017 4:26 PM PELLET POST INSPECTOR Height 172.7 cm (5' 8) 10/20/2017 4:26 PM PELLET POST INSPECTOR Body Mass Index 24.78 10/20/2017 4:26 PM PELLET POST INSPECTOR Plan of Treatment Health Maintenance Due Date Last Done Comments COLOGUARD (AGES 45-75) - COL ON CA SCREENING 1973 COLON MONITORING 1973 COLONOSCOPY - COLON CA SCREENING 1973 CT COLONOGRAPHY - COLON CA SCREENING 1973 Colorectal Cancer Screening 1973 FIT - COLON CA SCREENING 1973 FLEX SIG - COLON CA SCREENING 1973 LIPID TESTING 1973 MAMMOGRAM 1973 HIV SCREENING 1988 HEPATITIS C SCREENING 01/14/1991 DTAP/TDAP/TD VACCINES (1 - Tdap) 1992 HEPATITIS B VACCINE (1 of 3 - 19+ 3-dose series) 1992 PAP SMEAR 1994 PNEUMOCOCCAL VACCINE 50+ (1 of 1 - PCV) 2023 ZOSTER VACCINE (1 of 2) 2023 COVID-19 VACCINE (1 - 2023-2 5 season) 2024 DEPRESSION SCREENING 11/24/2024 INFLUENZA VACCINE (#1) 2025 HIB VACCINE Aged Out No longer eligi [...] on patient's age to complete this topic Insurance [facility] CARE [facility] CARE [facility] CARE Care Teams Automatic Dispenser Mechanic Relationship Specialty Start Date End Date Jamal Jama MD PCP - General Family Medicine 08/18/17
--- OUTSIDE RECORDS SUMMARY | 2025-06-23 10:40 | XMS_ITS | Encounter Summary ---
Author Organization [employer] Address [address] [place] [address] Care Team Providers Care Fire And Explosion Investigator Name Role Phone Keli Smith MD Primary Care Provider [phone] Encounter Details Date Type Department Care Team (Latest Contact Info) Description 08/24/2008 Outpatient Historical [facility] Murphy Wilson MD [facility] [address] [address] Deliv; Normal Delivery Social History Tobacco Use Types Packs/Day Years Used Date Smoking Tobacco: Never Assessed Comments Unknown Sex and Gender Information Value Date Recorded Sex Assigned at Not on file Legal Sex Female 5:04 AM MANUSCRIPT EDITOR Gender Identity Not on file Sexual [...] 2:04 PM CDT) DIRECT ANTIGLOBULIN POLY Negative [facility] 08/24/2008 2:04 PM CDT Murphy Wilson MD BLOOD BANK ORDERABLES Final Result Performing Organization Address City/[facility] Phone Number INTERFACE SYSTEM Refer to clinic/hospital department [facility] CLIA# [id number] [address] [place] [address] * ANTIBODY IDENTIFICATION (08/24/2008 2:04 PM CDT) ANTIBODY ID PANEL SolidPhase Ab Only [facility] 08/24/2008 2:04 PM CDT Murphy Wilson MD BLOOD BANK ORDERABLES Final Result Performing Organization Address [facility] Phone Number INTERFACE SYSTEM Refer to clinic/hospital department [facility] CLIA# [id number] [address] [place] [address] * TYPE AND SCREEN (08/24/2008 2:04 PM CDT) HISTORY CHECK History Checked [facility] SPECIMEN LIFE 3 days from drawdate [facility] ABO/RH TYPE A Positive [facility] ANTIBODY SCREEN Positive [facility] Blood specimen (specimen) 08/24/2008 2:04 PM CDT Murphy Wilson MD BLOOD BANK ORDERABLES Edited Performing Organization Address City/[facility] Phone Number INTERFACE SYSTEM Refer to clinic/hospital department [facility] CLIA# [id number] [address] [place] [address] * (ABNORMAL) URINALYSIS (08/24/2008 2:04 PM CDT) KETONES UA Negative Negative [facility] WBC UA 3 0 - 5 /HPF [facility] CLARITY UA Slt. Cloudy(A) Clear [facility] PROTEIN UA Negative Negative [facility] EPITHELIAL CELLS, URINE 5-10 /HPF [facility] BILIRUBIN UA Negative Negative [facility] LEUKOCYTE ESTERASE UA 2+(A) Negative [facility] RBC UA 1 0 - 4 /HPF [facility] SPECIFIC GRAVITY UA 1.006 1.001 - 1.035 [facility] BLOOD UA Negative Negative [facility] GLUCOSE UA Negative Negative [facility] COLOR UA Pale Yellow [facility] NITRITE UA Negative Negative [facility] UROBILINOGEN UA <1 <=1 mg/dL [facility] BACTERIA UA 1+(A) None Seen /HPF [facility] PH UA 6.0 5.0 - 8.0 [facility] Urine specimen (specimen) 08/24/2008 2:04 PM CDT 08/24/2008 2:19 PM CDT us Murphy Wilson MD URINE ORDERABLES Final Resul t Performing Organization Address [facility] Phone Number INTERFACE SYSTEM Refer to clinic/hospital department [facility] CLIA# [id number] [address] [place] [address] * CBC WITH DIFFERENTIAL (08/24/2008 2:04 PM CDT) RBC 4.06 3.90 - 4.90 M/uL [facility] MCHC 33.9 31.5 - 35.5 % [facility] MCV 88.7 82.0 - 99.0 fL [facility] PLATELETS 253 140 - 350 K/uL [facility] HEMOGLOBIN 12.2 11.8 - 14.8 g/dL [facility] RDW 13.5 11.5 - 14.5 % [facility] WBC 8.8 4.0 - 9.8 K/uL [facility] MCH 30.0 27.2 - 32.6 pg [facility] MPV 9.8 9.3 - 12.4 fL [facility] HEMATOCRIT 36.0 35.5 - 44.0 % [facility] RDW-STDEV 43.4 37.1 - 48.7 fL [facility] MONOCYTE ABSOLUTE 0.65 0.10 - 1.30 K/uL [facility] NEUTROPHILS 69 45 - 70 % [facility] NEUTROPHIL ABSOLUTE 6.04 1.90 - 7.00 K/uL [facility] EOSINOPHILS 1 0 - 7 % [facility] BASOPHILS ABSOLUTE 0.01 0.00 - 0.20 K/uL [facility] LYMPHOCYTES 23 16 - 45 % [facility] LYMPHOCYTE ABSOLUTE 2.02 0.70 - 4.50 K/uL [facility] BASOPHILS 0 0 - 2 % [facility] EOSINOPHIL ABSOLUTE 0.06 0.00 - 0.70 K/uL [facility] MONOCYTES 7 3 - 13 % [facility] Blood specimen (specimen) 08/24/2008 2:04 PM CDT 08/24/2008 2:19 PM CDT us Murphy Wilson MD HEMATOLOGY ORDERABLES Edited INTERFACE SYSTEM Refer to clinic/hospital department [facility] CLIA# [id number] [address] [place] [address] documented in this encounter Visit Diagnoses Diagnosis delivery, without mention of indication, delivered, with or without mention of antepartum condition Normal delivery documented in this encounter Care Teams Fire And Explosion Investigator Relationship Specialty Start Date End Date Keli Smith MD [address] [place] [address] PCP - General Family Practice 08/22/21 documented as of this encounter
--- OUTSIDE RECORDS SUMMARY | 2025-06-23 10:40 | XMS_ITS | Encounter Summary ---
Author Organization [employer] Address 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
--- OUTSIDE RECORDS SUMMARY | 2025-06-23 10:40 | XMS_ITS | Clinical Summary ---
Author Organization [facility] Address [address] [place] [address] Care Team Providers Care Smoking Pipes Cleaner Name Role Phone Unavailable Primary Care Provider Unavailabl e Immunizations Immunization Administration Dates Next Due Covid-19, Mrna, Lnp-s, PF, 5 0 mcg/0.25 mL dose (Moderna) 11/28/2021 Social History Tobacco Use Types Packs/Day Years Used Date Smoking Tobacco: Never Assessed Comments Unknown Sex and Gender Information Value Date Recorded Sex Assigned at Not on file Legal Sex Female 1:51 PM COMPENSATION ADMINISTRATOR Gender Identity Not on file Sexual Orientation Not on file Plan of Treatment Health Maintenance Due Date Last Done Comments Hepatitis C Virus (HCV) Screening 1973 Hepatitis B Immunization (1 of 3 - 19+ 3-dose series) 1992 Pap Smear 1994 Cervical Cancer Screening (CCS) 2003 HPV/Cotest 2003 Cologuard 2018 Immunochemical Fecal Occult Blood 2018 Pneumococcal Immunization (5 0+ years) (1 of 1 - PCV) 2023 Zoster Immunization (1 of 2) 2023 SARS-COV-2 Immunization ( - season) 2024 11/28/2021, 05/08/2021, 04/10/2021 Influenza Immunization (#1) 07/25/202508/24, 11/20/2016, 08/29/2011 Colonoscopy 09/04/2031 09/04/2021 Colorectal Cancer Screening 09/04/2031 Respiratory Syncytial Virus (RSV) Immunization (Adult) (1 - 1-dose 75+ series) 2048 DTaP/Tdap/Td Immunization Discontinued 06/24/2015 TdaP Immunization Completed 06/24/2015 Human Papillomavirus (HPV) Immunization Aged Out No longer eligible based on patient's age to complete this topic Meningococcal Immunization (ACWY) Aged Out No longer eligible based on patient's age to complete this topic Rotavirus Immunization Aged Out No lo nger eligible based on patient's age to complete this topic
--- OUTSIDE RECORDS SUMMARY | 2025-06-23 10:40 | XMS_ITS | Encounter Summary ---
Author Organization [facility] Address [address] [place] [address] Care Team Providers Care Sample Steamer Name Role Phone Keli Smith MD Primary Care Provider Encounter Details Date Type Department Care Team (Late st Contact Info) Description 08/28/2005 Outpatient Historical [facility] [place] M[facility] and Ground Floor [address] [facility] [address] [place] [address] Louie Caicedo MD NO ADDRESS ON FILE Social History Tobacco Use Types Packs/Day Years Used Date Smoking Tobacco: Never Assessed Comments Unknown Sex and Gender Information Value Date Recorded Sex Assigned at Not on file Legal Sex Female 5:04 AM ARTIFICIAL BREEDING DISTRIBUTOR Gender Identity Not on file Sexual Orientation Not on file documented as of this encounter Plan of Treatment Not on file documented as of this encounter Visit Diagnoses Not on filedocumented in this encounter Care Teams Sample Steamer Relationship Specialty Start Date End Date Keli Smith MD [address] [place] [phone] PCP - General Family Practice 08/22/21 documented as of this encounter
[2025-06-23 11:08] LABS: Hematocrit 41.3 % (37.0-47.0); Hemoglobin 13.8 g/dL (12.0-15.0)
[2025-06-23 11:35] LABS: Anion Gap 7 mmol/L (4-12); Blood Urea Nitrogen 15 mg/dL (7-17); Calcium 9.2 mg/dL (8.4-10.2); Carbon Dioxide 27 mmol/L (22-30); Chloride 101 mmol/L (98-107); Estimated Glomerular Filt Rate > 60; Glucose 99 mg/dL (65-110); Potassium 3.9 mmol/L (3.4-5.0); Sodium 135 mmol/L (137-145)
== END 2025-06-23 10:28 | disposition home or self-care (01) ==
LOC: ANHSURGERY 10:32
PROVIDERS: Anesthesiology; PCP Family Medicine; Visit Provider Orthopaedic Surgery
DX: Z01.818 Encounter for other preprocedural examination (principal); I10 Essential (primary) hypertension; Z86.2 Personal history of diseases of the blood and blood-forming organs and certain disorders involving the immune mechanism; Z79.899 Other long term (current) drug therapy
CPT/HCPCS: 36415; 80048; 85014; 85018; 93005

== ENCOUNTER 2025-06-29 01:07 | Day surgery (SDC) | payer OTHER, SELFPAY ==
[2025-06-21 09:52] VITALS: BMI 28.3
--- NOTE | 2025-06-21 09:54 | PC.NURSE ---
Report to the Outpatient Waiting Room, entrance under the green pavilion located off [facility], at time __0600__ on date __06/29/25__. Planned Procedure Time: __729__.? Time changes happen often and if your time is changed the preop area will call you the afternoon before. - You and your visitor will be asked to self-screen and do not enter if you have any COVID symptoms. Please call surgeon if you need to reschedule. - A mask is optional within the hospital at this time. Patients may have clear liquids (water, carbonated beverages, clear teas, apple juice) until 3 hours prior to surgery with a maximum of 20 ounces. - No food from midnight until time of surgery and no smoking, or chewing tobacco (or any form of nicotine). No chewing gum, candy or mints. Take only the following medications with a SIP of water on the morning of surgery: ____escitaloram, valacyclovir DO NOT STOP ANY OF YOUR OTHER PRESCRIPTION MEDICATIONS PRIOR TO SURGERY EXCEPT THE FOLLOWING Hold all vitamins and supplements for 3 days per anesthesiologist. Medications to discontinue per physician ____HOLD LISINOPRIL AM OF SURGERY Please no make-up, nail persian, hairspray, perfume, deodorant, or body powder the day of surgery.? No jewelry (including any body piercings) or valuables the day of surgery, leave them at home.? Please take a shower or bath the night before, or the morning of, surgery with an antibacterial soap.? Wear comfortable, loose fitting clothing.? - Jewelry must be removed prior to entering the operating room.? Rings and piercings that are not removed may be cut off. - The hospital will not accept responsibility for valuables.? - Please leave all valuables, including medications, at home the day of surgery. If you are going home after surgery, a licensed pharmacy delivery driver must drive you home.? - NO public transportation without another adult if you receive anesthesia. - We recommend that an adult stay with you for 24 hours following discharge. - We also recommend that you do not drive, make important decision, drink alcoholic beverages, or take any drugs that were not prescribed by your health care provider for at least 24 hours after your discharge time. Follow any additional instructions given to you from your surgeon. Telephone instructions given to ___Shruthi___and asked if any additional questions and then verbalized understanding. Patient advised to call surgeon office or pre surgery nurse liaison [phone] if any additional questions.
--- NOTE | 2025-06-28 07:12 | PM.IMHP ---
H&P: HPI History of Present Illness Date/Time: 06/28/25 07:12 Chief Complaint: Patient has right knee pain. Pain is localized to the lateral aspect. She has mechanical catching and locking has failed conservative treatment. He has an MRI scan demonstrates meniscal pathology. She would like to proceed with arthroscopic intervention. Review of Systems Musculoskeletal: Musculoskeletal: Reports arthralgias, Reports joint swelling and Reports stiffness PMFSH Past Medical History Medical History Other chronic pain History of migraine headaches History of atrial fibrillation Elevated blood pressure reading Chronic left shoulder pain Surgical History Surgical History H/O excision of mass 07/29/23 Excision of right lower back mass intramuscular lipoma Hx of section x3 -- 2006, 2007, 2011 Family History Family History Grandparent Diabetes mellitus Family history of glaucoma Family history of cardiovascular disease Cerebrovascular accident Mother Carcinoma of colon Father DVT (deep venous thrombosis) Sibling DVT (deep venous thrombosis) Other Family history of elevated blood lipids Hypertension Social History Social History Smoking status: Never smoker Second hand tobacco smoke exposure: No Alcohol intake: current Drinks per week: 2 Alcohol use details: every once in a while Substance use: never Substance use type: does not use Do You Feel Safe in your Home?: Yes Lack of Transportation: No Lack of Food: Never True Current Housing: I Have Housing Concerned About Future Housing: No Difficulty Paying Gas/Electric Bills: No Difficulty Paying for Meds: No Currently Unemployed: No Education: Bachelor's Degree Difficulty w/ Childcare or Family Care: No Living arrangements: with family Gender identity (if verbalized by the patient): Female Sexual Orientation (if Verbalized by the Patient): Straight or Heterosexual Spiritual care concerns: No Meds Home Medications and Allergies Home Medications ?Medication ?Instructions ?Recorded ?Confirmed ?Type multivitamin 1 tablet PO DAILY 07/22/23 06/21/25 History valacyclovir 500 mg tablet 500 mg PO Q12H PRN cold sores #90 12/06/24 06/21/25 Rx tabs ferrous sulfate 324 mg (65 mg 324 mg PO DAILY 12/16/24 06/21/25 History iron) tablet,delayed release hydrochlorothiazide 12.5 mg tablet 12.5 mg PO DAILY #90 tabs 02/14/25 06/21/25 Rx escitalopram oxalate 5 mg tablet 5 mg PO DAILY #30 tabs 03/30/25 06/21/25 Rx (Lexapro) lisinopril 5 mg tablet 5 mg PO DAILY #30 tabs 03/30/25 06/21/25 Rx estradiol 0.05 mg/24 hr semiweekly 1 patch transdermal 2XW 05/03/25 06/21/25 History transdermal patch (Minivelle) progesterone 100 mg PO DAILY 05/03/25 06/21/25 History Allergies Allergy/AdvReac Type Severity Reaction Status Date / Time bee venom protein (honey bee) Allergy Unknown Swelling Verified 06/21/25 09:36 latex Allergy Unknown Redness of Verified 06/21/25 09:36 Skin Exam Narrative: Patient has tenderness along the joint line. She has a positive Alton's sign. She has mechanical catching and locking with manipulation. Neurologically she is intact. She walks with an antalgic gait. Eyes: General: appearance normal, both eyes and all related structures Neck: Neck: supple Resp: Effort & Inspection: normal respiratory effort Cardio: Rate: regular rate Rhythm: regular rhythm Radiology Reports: Comments: Magnetic Resonance Report Signed Patient: Shruthi Gordon MRI of the right knee Clinical history: Pain Technique: Coronal proton density and proton density-weighted images, sagittal proton-density and T2 fat-sat images, and axial proton-density fat-saturated images were acquired. Findings: Posterior cruciate ligament is intact. Suspected complete tear at the proximal to midportion of the ACL. Medial collateral ligament demonstrates probable partial tearing of the deep meniscofemoral fibers. Lateral collateral ligament complex is intact. Popliteus tendon is intact. There is probable oblique tear of the posterior horn of the lateral meniscus. No definite medial meniscal tear seen. There is focal mild to moderate chondromalacia along the medial patellar facet. There is minimal chondral thinning of the femoral trochlea. There is moderate chondral thinning at the medial femoral condyle. Lateral compartment cartilage is well preserved. There is patchy minimal amorphous marrow edema in the proximal tibia and medial femoral condyle, nonspecific. Extensor mechanism is intact. Moderate to large joint effusion present. No Swift's cyst. Impression: Probable complete ACL tear. Probable partial tearing of the deep meniscofemoral fibers of the MCL. Probable oblique tear of the posterior horn of the lateral meniscus. Mild degenerative change, as above. Mild amorphous marrow edema in the proximal tibia and medial femoral condyle. Consider bone contusions or stress response. Moderate to large joint effusion. Reviewed, dictated and finalized at location . Hand X-Ray 12/14/24 Knee X-Ray 02/02/25 Knee MRI 03/06/25 Wrist X-Ray 01/13/25 Orthopedics Result Report 01/13/25 Assessment and Plan Assessment and plan (1) Acute lateral meniscus tear of right knee: Code(s): S83.281A - Other tear of lateral meniscus, current injury, right knee, initial encounter Status: Acute Assessment and Plan: Patient has what appears to be lateral meniscal tear of the right knee. She has failed conservative treatment. She continues to have catching and locking and pain. She would like to consider arthroscopic intervention. I have discussed the risks, benefits, limitations, and alternatives with the patient in detail she would like to proceed will proceed with arthroscopy of the right knee partial lateral meniscectomy proceed as indicated.
[2025-06-29] VITALS (8 sets, daily range): BP systolic 110–129; BP diastolic 64–82; PULSE 70–85; RESP 12–16; TEMP 36.2–36.3; O2SAT 99–100
--- OUTSIDE RECORDS SUMMARY | 2025-06-29 01:18 | XMS_ITS | Encounter Summary ---
Author Organization [facility] Address [address] Attn: Epic Prelude ADT [place] [address] Care Team Providers Care Guest Relations Manager Name Role Phone Keli Smith MD Primary Care Provider [phone] Encounter Details Date Type Department Care Team ([facility] st Contact Info) Description 06/12/1998 Outpatient Historical Conversion, History Social History Tobacco Use Types Packs/Day Years Used Date Smoking Tobacco: Never Assessed Comments Unknown Sex and Gender Information Value Date Recorded Sex Assigned at Not on file Legal Sex Female 5:04 AM HEDIS NURSE Gender Identity Not on file Sexual Orientation Not on file documented as of this encounter Plan of Treatment Not on file documented as of this encounter Visit Diagnoses Not on filedocumented in this encounter Care Teams Guest Relations Manager Relationship Specialty Start Date End Date Keli Smith MD [address] [place] [phone] PCP - General Family Practice 08/22/21 documented as of this encounter
--- OUTSIDE RECORDS SUMMARY | 2025-06-29 01:18 | XMS_ITS | Encounter Summary ---
Author Organization [facility] Address [address] [place] [address] Care Team Providers Care Developer Programmer Name Role Phone Keli Smith MD Primary Care Provider [phone] Encounter Details Date Type Department Care Team (Late st Contact Info) Description 05/19/2002 Outpatient Historical [facility] Internal Medicine [facility] [address] [place] [address] Vince Suazo MD NO ADDRESS ON FILE Social History Tobacco Use Types Packs/Day Years Used Date Smoking Tobacco: Never Assessed Comments Unknown Sex and Gender Information Value Date Recorded Sex Assigned at Not on file Legal Sex Female 5:04 AM SOLAR SALES ENERGY ADVISOR Gender Identity Not on file Sexual Orientation Not on file documented as of this encounter Plan of Treatment Not on file documented as of this encounter Visit Diagnoses Not on filedocumented in this encounter Care Teams Developer Programmer Relationship Specialty Start Date End Date Keli Smith MD [address] [place] [address] PCP - General Family Practice 08/22/21 documented as of this encounter
--- OUTSIDE RECORDS SUMMARY | 2025-06-29 01:18 | XMS_ITS | Clinical Summary ---
Author Organization [facility] Address [address] [place] [address] Phone Care Team Providers Care Kidney Trimmer Name Role Phone Keli Smith MD Primary Care Provider [phone] Allergies Active Allergy Reactions Criticality Noted Date Comments Latex Rash Low 01/20/2012 Medications escitalopram oxalate (LEXAPRO) 5 mg tablet 5 Active hydroCHLOROthi azide 12.5 mg tablet Take 1 Tablet by mouth daily. 5 Active lisinopriL (PRINIVIL) 2.5 mg tablet Take 1 Tablet by mouth daily. 5 Active lisinopriL (PRINIVIL) 5 mg tablet 5 Active valACYclovir (VALTREX) 500 mg tablet TAKE 1 TABLET BY MOUTH EVERY 12 HOURS NEEDED FOR COLD SORES 5 Active multivitamin (DAILY-JENSEN) tablet Take 1 Tablet by mouth daily. Active progesterone micronized (Prometrium) 100 mg Capsule Take 1 Capsule (100 mg) by mouth daily. 90 Capsule 3 5 Active estradioL (VAGIFEM) [address] one table twice weekly per vagina at hs 24 Tablet 3 5 Active estradioL 0.05 mg/24 hr patch APPLY 1 PATCH TO SKIN DIRECTED TWICE WEEKLY 4 Patch 3 5 Active estradioL (Vivelle-Dot) 0.05 mg/24 hr patch Apply 1 Patch to skin as directed twice weekly. 4 Patch 3 5 025 Discontinued Active Problems Problem Noted Date Diagnosed Date [...] Encounters Date Type Department Care Team Description 06/23/2025 Refill [facility] MINGLE OPERATOR [facility] [address] [address] [place] [address] Murphy Wilson MD 06/08/2025 External Device Data STL ABSTRACTION Provider, Abstract 06/07/2025 External Device Data STL ABSTRACTION Provider, Abstract 05/10/2025 External Device Data STL ABSTRACTION Provider, Abstract 04/26/2025 External Device Data STL ABSTRACTION Provider, Abstract 04/25/2025 9:40 AM CDT Video Visit [facility] MINGLE OPERATOR [facility] [address] [facility] [address] [place] [address] Murphy Wilson MD Menopausal symptoms (Primary Dx) 04/14/2025 External Device Data STL ABSTRACTION Provider, Abstract 04/13/2025 External Device Data STL ABSTRACTION Provider, Abstract 04/12/2025 External Device Data STL ABSTRACTION Provider, Abstract 04/01/2025 Telephone [facility] Women's Health Clinical Support [address] [place] [address] Haleigh Denis RN Question 03/30/2025 Results Follow-Up [facility] MINGLE OPERATOR [facility] [address] [facility] [address] [place] [address] Murphy Wilson MD PROGESTERONE, TSH, ESTRADIOL, Additional followed-up results: 2 03/29/2025 3:10 PM CDT Office Visit [facility] MINGLE OPERATOR [facility] [address] [facility] [address] [place] [address] Murphy Wilson MD Postoperative follow-up (Primary Dx); Menopausal [...] on file Legal Sex Female 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 Gender Identity Not on file Sexual [...] (03/29/2025 3:26 PM CDT) PROGESTERONE <0.5 ng/mL [facility] Comment: Reference Ranges Female Follicular Phase < 1.0 Luteal Phase 2.6-21.5 Post menopausal < 0.5 1st Trimester 4.1-34.0 2nd Trimester 24.0-76.0 3rd Trimester 52.0-302.0 Test Performed at: [facility] [address] [place] [phone] Tramaine Turcios Blood 03/29/2025 3:26 PM CDT 03/29/2025 3:27 PM CDT Murphy Wilson MD CHEMISTRY ORDERABLES Final R esult [facility] [phone] [facility] [address] [place] [address] * ESTRADIOL (03/29/2025 3:26 PM CDT) ESTRADIOL <15 pg/mL [facility] Comment: Reference Range Follicular Phase: 19-144 Mid-Cycle: 64-357 Luteal Phase: 56-214 Postmenopausal: < or = 31 Reference range established on post-pubertal patient population. No pre-pubertal reference range established using this assay. For any patients for whom low Estradiol levels are anticipated (e.g. males, pre-pubertal children and hypogonadal/post-menopausal females), the [facility] Estradiol, Ultrasensitive, LCMSMS assay is recommended (order code 71548). Please note: patients being treated with the drug fulvestrant (Faslodex(R)) have demonstrated significant interference in immunoassay methods for estradiol measurement. The cross reactivity could lead to falsely elevated estradiol test results leading to an inappropriate clinical assessment of estrogen status. [facility] order code [id number], Ultrasensitive LC/MS/MS demonstrates negligible cross reactivity with fulvestrant. Test Performed at: [facility] [place] [address] [place] [address] [facility] Vo Blood 03/29/2025 3:26 PM CDT 03/29/2025 3:27 PM CDT Murphy Wilson MD CHEMISTRY ORDERABLES Final R esult Performing Organization Address City/[facility]/ZIP Code Phone Number [facility] [phone] [place] [address] [place] [address] * TSH (03/29/2025 3:26 PM CDT) TSH 1.45 mIU/L [facility] Comment: Reference Range > or = 20 Years 0.40-4.50 Ranges First trimester 0.26-2.66 Second trimester 0.55-2.73 Third trimester 0.43-2.91 Test Performed at: [facility] [place] [address] [place] [address] [facility] Vo Blood 03/29/2025 3:26 PM CDT 03/29/2025 3:27 PM CDT Murphy Wilson MD CHEMISTRY ORDERABLES Final R esult Performing Organization Address City/[facility] [[email or web address]] Code Phone Number [facility] [phone] [place] [address] [place] [address] * LUTEINIZING HORMONE (03/29/2025 3:26 PM CDT) LUTEINIZING HORMONE 44.8 mIU/mL [facility] Comment: Reference Range Follicular Phase 1.9-12.5 Mid-Cycle Peak 8.7-76.3 Luteal Phase 0.5-16.9 Postmenopausal 10.0-54.7 Test Performed at: [facility] [address] [place] [address] Tramaine Turcios MD Blood 03/29/2025 3:26 PM CDT 03/29/2025 3:27 PM CDT us Murphy Wilson MD CHEMISTRY ORDERABLES Final R esult Performing Organization Address City/[facility]/ZIP Co de Phone Number [facility] [phone] [facility] [address] [place] [address] * FSH (03/29/2025 3:26 PM CDT) FSH 104.2 mIU/mL [facility] [facility] Comment: Reference Range Follicular Phase 2.5-10.2 Mid-cycle Peak 3.1-17.7 Luteal Phase 1.5- 9.1 Postmenopausal 23.0-116.3 Test Performed at: [facility] [address] [place] [address] ShahrzadKelle Turcios MD Blood 03/29/2025 3:26 PM CDT 03/29/2025 3:27 PM CDT us Murphy Wilson MD CHEMISTRY ORDERABLES Final R esult Performing Organization Address City/[facility]/ZIP Co de Phone Number [facility] [phone] [facility] [address] [place] [phone] * COLONOSCOPY REPORT (09/04/2021 9:12 AM CDT) Narrative Procedure Note Louie Bains MD - 09/04/2021 9:11 AM CDT [facility] Endoscopy Patient Name: Shruthi Gordon Procedure [...] of Addenda: [address]; [place] [address] Louie Bains MD GI PROCEDURE ORDERABL ES Final Result * CERV/VAG CYTO SCREEN PAP W/HPV (06/27/2021 1:07 PM CDT) CLINICAL INFORMATION [facility] Comment:Information not prov ided LAST MENSTRUAL PERIOD [facility] Comment:INFORMATION NOT PROV IDED PREV PAP: [facility] Comment:INFORMATION NOT PROV IDED PREV BX: [facility] Comment:INFORMATION NOT PROV IDED SOURCE [facility] Comment:Endocervix ADEQUACY: [facility] Comment: Satisfactory for evaluation. Endocervical/transformation zone component absent. Age and/or menstrual status not provided PAP INTERP [facility] Comment:Negative for intraep ithelial lesion or malignancy. COMMENT [facility] Comment: This Pap test has been evaluated with computer assisted technology. INTERNET MARKETING ANALYST: [facility] Comment: BES, CT(ASCP) CT screening location: [place] [address] [place] [address] SEE NOTE [facility] Comment: EXPLANATORY NOTE: The Pap [...] information. HPV E6/E7 Not Detected Not Detected [facility] Comment: Methodology: Pelletizer Operator-Mediated Amplification This assay detects E6/E7 viral messenger RNA (mRNA) from 14 high-risk HPV types (16,18,31,33,35,39,45,51,52,56,58,59,66,68). The analytical performance characteristics of this assay have been determined by [facility]. The modifications have not been cleared or approved by the FDA. This assay has been validated pursuant to the CLIA regulations and is used for clinical purposes. For additional information, please refer to http://education.trueAnthem.Guavus/faq/OPQ249z0 (This link if provided for information/ educational purposes only.) Test Performed at: [facility] [address] [place] [address] Louie Damon D.O., MPH SL Genital SWAB OF ENDOCERVIX / Unknown 06/27/2021 1:07 PM CDT 06/28/2021 2:36 AM CDT us Murphy Wilson MD PATHOLOGY/CYTOLOGY ORDERABLE S Final Result [facility] [address] [place] [address] * (ABNORMAL) MAMMO DIAGNOSTIC UNI [...] in the upper-outer right breast. DICTATED LOCATION: [facility] 07/22/2017 1:17 PM CDT RIGHT UNILATERAL FULL [...] in the upper-outer right breast. DICTATED LOCATION: [facility] Jamal Jama MD MAMMO ORDERABLES Final Result from Last 3 Months or Most Recently Relevant to Health Maintenance Insurance [facility] [id number] Advance Directives For more information, please contact: [phone] * Full Code (Latest Code Status on File) Date Activated Date Inactivated Comments 01/20/2012 4:42 PM 01/20/2012 8:00 PM Care Teams Kidney Trimmer Relationship Specialty Start Date End Date Keli Smith MD [address] [place] [address] PCP - General Family Practice 08/22/21
--- OUTSIDE RECORDS SUMMARY | 2025-06-29 01:18 | XMS_ITS | Encounter Summary ---
Author Organization [facility] Address [address] [place] [address] Care Team Providers Care Computer Recycling Worker Name Role Phone Keli Smith MD Primary Care Provider Encounter Details Date Type Department Care Team (Latest Contact Info) Description 08/28/2005 Outpatient Historical [facility] Murphy Wilson MD [address] [place] [address] CEREBRAL CYSTS (Primary Dx) Social History Tobacco Use Types Packs/Day Years Used Date Smoking Tobacco: Never Assessed Comments Unknown Sex and Gender Information Value Date Recorded Sex Assigned at Not on file Legal Sex Female 5:04 AM PEN RIDER Gender Identity Not on file Sexual Orientation Not on file documented as of this encounter Plan of Treatment Not on file documented as of this encounter Visit Diagnoses Diagnosis Cerebral cysts- Primary documented in this encounter Care Teams Computer Recycling Worker Relationship Specialty Start Date End Date Keli Smith MD [address] [place] [address] PCP - General Family Practice 08/22/21 documented as of this encounter
--- OUTSIDE RECORDS SUMMARY | 2025-06-29 01:18 | XMS_ITS | Encounter Summary ---
Author Organization [facility] Address [address] [place] [address] Care Team Providers Care Bandoleer Straightener Stamper Name Role Phone Keli Smith MD Primary Care Provider [phone] Encounter Details Date Type Department Care Team (Late st Contact Info) Description 10/31/2004 Outpatient Historical [facility] Internal Medicine - [place] [address] [place] [address] [place] [address] [place] [address] Social History Tobacco Use Types Packs/Day Years Used Date Smoking Tobacco: Never Assessed Comments Unknown Sex and Gender Information Value Date Recorded Sex Assigned at Not on file Legal Sex Female 5:04 AM TELEVISION JOURNALIST Gender Identity Not on file Sexual Orientation Not on file documented as of this encounter Last Filed Vital Signs Vital Sign Reading Time Taken Comments Blood Pressure 110/60 10/31/2004 9:30 AM TELEVISION JOURNALIST Pulse - - Temperature 38.9 C (102 F) 10/31/2004 9:30 AM TELEVISION JOURNALIST Respiratory Rate - - Oxygen Saturation - - Inhaled Oxygen Concentration - - Weight 64.4 kg (142 lb) 10/31/2004 9:30 AM TELEVISION JOURNALIST Height - - Body Mass Index - - documented in this encounter Plan of Treatment Not on file documented as of this encounter Visit Diagnoses Not on filedocumented in this encounter Care Teams Bandoleer Straightener Stamper Relationship Specialty Start Date End Date Keli Smith MD [address] [place] [phone] PCP - General Family Practice 08/22/21 documented as of this encounter
--- OUTSIDE RECORDS SUMMARY | 2025-06-29 01:18 | XMS_ITS | Encounter Summary ---
Author Organization [facility] Address [address] [place] [address] Care Team Providers Care Labor Relations Specialist Name Role Phone Keli Smith MD Primary Care Provider [phone] Encounter Details Date Type Department Care Team (Late st Contact Info) Description 03/21/1999 Outpatient Historical [facility] Internal Medicine - [place] [address] [place] [address] Carmen Berry MD [address] [facility] [address] [place] [address] Social History Tobacco Use Types Packs/Day Years Used Date Smoking Tobacco: Never Assessed Comments Unknown Sex and Gender Information Value Date Recorded Sex Assigned at Not on file Legal Sex Female 5:04 AM MOVIE WRITER Gender Identity Not on file Sexual Orientation Not on file documented as of this encounter Plan of Treatment Not on file documented as of this encounter Visit Diagnoses Not on filedocumented in this encounter Care Teams Labor Relations Specialist Relationship Specialty Start Date End Date Keli Smith MD [address] [place] [address] PCP - General Family Practice 08/22/21 documented as of this encounter
--- OUTSIDE RECORDS SUMMARY | 2025-06-29 01:18 | XMS_ITS | Encounter Summary ---
Author Organization [facility] Address [address] [place] [address] Care Team Providers Care Clipper Operator Name Role Phone Keli Smith MD Primary Care Provider Encounter Details Date Type Department Care Team (Late st Contact Info) Description 03/24/2002 Outpatient [facility] [address] [facility] [address] [place] [address] Abdoul [place] (Two) Social History Tobacco Use Types Packs/Day Years Used Date Smoking Tobacco: Never Assessed Comments Unknown Sex and Gender Information Value Date Recorded Sex Assigned at Not on file Legal Sex Female 5:04 AM BREAST WORKER Gender Identity Not on file Sexual Orientation Not on file documented as of this encounter Plan of Treatment Not on file documented as of this encounter Visit Diagnoses Not on filedocumented in this encounter Care Teams Clipper Operator Relationship Specialty Start Date End Date Keli Smith MD [address] [place] [address] PCP - General Family Practice 08/22/21 documented as of this encounter
--- OUTSIDE RECORDS SUMMARY | 2025-06-29 01:18 | XMS_ITS | Encounter Summary ---
Author Organization [facility] Address [address] [place] [address] Care Team Providers Care Child Adolescent Care Name Role Phone Keli Smith MD Primary Care Provider [phone] Encounter Details Date Type Department Care Team (Late st Contact Info) Description 11/13/2000 Outpatient Historical [facility] Internal Medicine - [place] [address] [place] [address] [place] [address] [place] [address] Social History Tobacco Use Types Packs/Day Years Used Date Smoking Tobacco: Never Assessed Comments Unknown Sex and Gender Information Value Date Recorded Sex Assigned at Not on file Legal Sex Female 5:04 AM STOCK BROKER Gender Identity Not on file Sexual Orientation Not on file documented as of this encounter Plan of Treatment Not on file documented as of this encounter Visit Diagnoses Not on filedocumented in this encounter Care Teams Child Adolescent Care Relationship Specialty Start Date End Date Keli Smith MD [address] [place] [address] PCP - General Family Practice 08/22/21 documented as of this encounter
--- OUTSIDE RECORDS SUMMARY | 2025-06-29 01:18 | XMS_ITS | Encounter Summary ---
Author Organization [facility] Address [address] [place] [address] Care Team Providers Care Logging Tractor Operator Name Role Phone Keli Smith MD Primary Care Provider [phone] Encounter Details Date Type Department Care Team (Late st Contact Info) Description 02/09/1999 Outpatient Historical [facility] Internal Medicine - [place] [address] [place] [address] [place] [address] [place] [address] Social History Tobacco Use Types Packs/Day Years Used Date Smoking Tobacco: Never Assessed Comments Unknown Sex and Gender Information Value Date Recorded Sex Assigned at Not on file Legal Sex Female 5:04 AM SUPERVISOR SHOP Gender Identity Not on file Sexual Orientation Not on file documented as of this encounter Plan of Treatment Not on file documented as of this encounter Visit Diagnoses Not on filedocumented in this encounter Care Teams Logging Tractor Operator Relationship Specialty Start Date End Date Keli Smith MD [address] [place] [address] PCP - General Family Practice 08/22/21 documented as of this encounter
--- OUTSIDE RECORDS SUMMARY | 2025-06-29 01:18 | XMS_ITS | Encounter Summary ---
Author Organization [facility] Address [address] [place] [address] Care Team Providers Care Corporate Travel Counselor Name Role Phone Keli Smith MD Primary Care Provider Encounter Details Date Type Department Care Team (Late st Contact Info) Description 06/02/2002 Outpatient Historical [facility] Internal Medicine - [place] [address] [place] [address] [place] [address] [place] [address] Social History Tobacco Use Types Packs/Day Years Used Date Smoking Tobacco: Never Assessed Comments Unknown Sex and Gender Information Value Date Recorded Sex Assigned at Not on file Legal Sex Female 5:04 AM PERIPHERAL EQUIPMENT OPERATOR Gender Identity Not on file Sexual Orientation Not on file documented as of this encounter Plan of Treatment Not on file documented as of this encounter Visit Diagnoses Not on filedocumented in this encounter Care Teams Corporate Travel Counselor Relationship Specialty Start Date End Date Keli Smith MD [address] [place] [address] PCP - General Family Practice 08/22/21 documented as of this encounter
--- OUTSIDE RECORDS SUMMARY | 2025-06-29 01:18 | XMS_ITS | Clinical Summary ---
Author Organization [facility] Address [address] [place] [address] Care Team Providers Care Horticulturalist Name Role Phone Unavailable Primary Care Provider Unavailabl e Immunizations Immunization Administration Dates Next Due Covid-19, Mrna, Lnp-s, PF, 5 0 mcg/0.25 mL dose (Moderna) 11/28/2021 Social History Tobacco Use Types Packs/Day Years Used Date Smoking Tobacco: Never Assessed Comments Unknown Sex and Gender Information Value Date Recorded Sex Assigned at Not on file Legal Sex Female 1:51 PM MANAGER MUSIC Gender Identity Not on file Sexual Orientation [...]
--- OUTSIDE RECORDS SUMMARY | 2025-06-29 01:18 | XMS_ITS | Encounter Summary ---
Author Organization [facility] Address [address] [place] [address] Care Team Providers Care Nitroglycerin Neutralizer Name Role Phone Keli Smith MD Primary Care Provider [phone] Encounter Details Date Type Department Care Team (Late st Contact Info) Description 06/15/2003 Outpatient Historical [facility] Internal Medicine - [place] [address] [place] [address] [place] [address] [place] [address] Social History Tobacco Use Types Packs/Day Years Used Date Smoking Tobacco: Never Assessed Comments Unknown Sex and Gender Information Value Date Recorded Sex Assigned at Not on file Legal Sex Female 5:04 AM MANAGER MONEY Gender Identity Not on file Sexual Orientation [...] on filedocumented in this encounter Care Teams Nitroglycerin Neutralizer Relationship Specialty Start Date End Date Keli Smith MD [address] [place] [address] PCP - General Family Practice 08/22/21 documented as of this encounter
--- OUTSIDE RECORDS SUMMARY | 2025-06-29 01:18 | XMS_ITS | Encounter Summary ---
Author Organization [facility] Address [address] [place] [address] Care Team Providers Care Vessel Traffic Officer Name Role Phone Keli Smith MD Primary Care Provider Encounter Details Date Type Department Care Team (Latest Contact Info) Description 01/14/2006 Inpatient Historical [facility] Dave Angel MD NO ADDRESS ON FILE Murphy Wilson MD [facility] [address] [address] BREECH PRESENTAT-DELIVER (Primary Dx) Social History Tobacco Use Types Packs/Day Years Used Date Smoking Tobacco: Never Assessed Comments Unknown Sex and Gender Information Value Date Recorded Sex Assigned at Not on file Legal Sex Female 5:04 AM REAL ESTATE BROKER ASSOCIATE Gender Identity Not on file Sexual Orientation Not on file documented as of this encounter Plan of Treatment Not on file documented as of this encounter Procedures Procedure Name Priority Date/Time Associated Diagnosis Comments CBC WITH DIFFERENTIAL Routine 01/13/2006 3:00 PM REAL ESTATE BROKER ASSOCIATE CBC WITH DIFFERENTIAL Routine 01/13/2006 3:00 PM REAL ESTATE BROKER ASSOCIATE URINALYSIS W/REFLEX MICROSCOPIC Routine 01/13/2006 3:00 PM REAL ESTATE BROKER ASSOCIATE documented in this encounter Results * (ABNORMAL) CBC WITH DIFFERENTIAL (01/13/2006 3:00 PM REAL ESTATE BROKER ASSOCIATE) NEUTROPHILS 71(H) 45 - 70 % INTERFAC [...] 0.20 K/uL INTERFACE SYSTEM 01/13/2006 3:00 PM REAL ESTATE BROKER ASSOCIATE Murphy Wilson MD HEMATOLOGY ORDERABLES Final Result Performing Organization Address City/[facility] de Phone Number INTERFACE SYSTEM Refer to clinic/hospital department * (ABNORMAL) CBC WITH DIFFERENTIAL (01/13/2006 3:00 PM REAL ESTATE BROKER ASSOCIATE) WBC 9.9(H) 4.0 - 9.8 K/uL INTERFACE [...] 12.4 fL INTERFACE SYSTEM 01/13/2006 3:00 PM REAL ESTATE BROKER ASSOCIATE Murphy Wilson MD HEMATOLOGY ORDERABLES Final Result INTERFACE SYSTEM Refer to clinic/hospital department * (ABNORMAL) URINALYSIS (01/13/2006 3:00 PM REAL ESTATE BROKER ASSOCIATE) COLOR UA Yellow INTERFACE SYSTEM CLARITY UA [...] Many /HPF INTERFACE SYSTEM 01/13/2006 3:00 PM REAL ESTATE BROKER ASSOCIATE us Murphy Wilson MD URINE ORDERABLES Final Resul t INTERFACE SYSTEM Refer to clinic/hospital department documented in this encounter Visit Diagnoses Diagnosis Breech presentation without mention of version, delivered- Primary documented in this encounter Care Teams Vessel Traffic Officer Relationship Specialty Start Date End Date Keli Smith MD [address] [place] [address] PCP - General Family Practice 08/22/21 documented as of this encounter
--- OUTSIDE RECORDS SUMMARY | 2025-06-29 01:18 | XMS_ITS | Encounter Summary ---
Author Organization [facility] Address [address] [place] [address] Care Team Providers Care Crm Manager Name Role Phone Keli Smith MD Primary Care Provider [phone] Encounter Details Date Type Department Care Team (Late st Contact Info) Description 09/28/2003 Outpatient Historical [facility] Internal Medicine - [place] [address] [place] [address] [place] [address] [place] [address] Social History Tobacco Use Types Packs/Day Years Used Date Smoking Tobacco: Never Assessed Comments Unknown Sex and Gender Information Value Date Recorded Sex Assigned at Not on file Legal Sex Female 5:04 AM SEAFOOD PROCESSOR Gender Identity Not on file Sexual Orientation Not on file documented as of this encounter Last Filed Vital Signs Vital Sign Reading Time Taken Comments Blood Pressure 122/80 09/28/2003 11:30 AM SEAFOOD PROCESSOR Pulse - - Temperature - - Respiratory Rate - - Oxygen Saturation - - Inhaled Oxygen Concentration - - Weight 62.6 kg (138 lb) 09/28/2003 11:30 AM SEAFOOD PROCESSOR Height - - Body Mass Index - - documented in this encounter Plan of Treatment Not on file documented as of this encounter Visit Diagnoses Not on filedocumented in this encounter Care Teams Crm Manager Relationship Specialty Start Date End Date Keli Smith MD [address] [place] [address] PCP - General Family Practice 08/22/21 documented as of this encounter
--- OUTSIDE RECORDS SUMMARY | 2025-06-29 01:18 | XMS_ITS | Encounter Summary ---
Author Organization [facility] Address [address] [place] [address] Care Team Providers Care Home Theater Expert Name Role Phone Keli Smith MD Primary Care Provider [phone] Encounter Details Date Type Department Care Team (Late st Contact Info) Description 08/28/2005 Outpatient Historical [facility] Maternal and Ground [facility] [address] [facility] [address] [place] [address] Louie Caicedo MD NO ADDRESS ON FILE Social History Tobacco Use Types Packs/Day Years Used Date Smoking Tobacco: Never Assessed Comments Unknown Sex and Gender Information Value Date Recorded Sex Assigned at Not on file Legal Sex Female 5:04 AM MEDICAL CERTIFICATION SPECIALIST Gender Identity Not on file Sexual Orientation Not on file documented as of this encounter Plan of Treatment Not on file documented as of this encounter Visit Diagnoses Not on filedocumented in this encounter Care Teams Home Theater Expert Relationship Specialty Start Date End Date Keli Smith MD [address] [place] [address] PCP - General Family Practice 08/22/21 documented as of this encounter
--- OUTSIDE RECORDS SUMMARY | 2025-06-29 01:18 | XMS_ITS | Continuity of Care Document ---
Author Organization [facility] Address [address] [place] [address] Phone Care Team Providers Care Credit Or Loans Officer Name Role Phone MD THOMAS GILBERT Unavailable Unavailable Advance Directives Directive Yes / No Effective Date File Name No Information Encounters Encounter Description Practice Location Reason(s) For Visit Diagnoses Date Provider Providers Copied on Encounter [facility], [address] [facility], [place], [place], [id number], [place] tel:[phone] [facility] OUTPATIENT No Information MD RUTHIE THOMAS. [address] [place] [address], [id number], [place]. tel:[phone] Referring Provider: CEDRIC Hines, [address] [place], [address]. tel:[phone] Family History Family Member Type Diagnosis Age At Onset No Information Payers Payer name Insurance type Covered libertarian ID Authorsalomóna kuldip(s) [facility] POS [id number] CI [id number] Social History Type Description Quantity Date Captured Comments Sex Female Smoking Status No Information Chief Complaint And Reason For Visit No Information History Of Present Illness Encounter Date Complaint History Of Prese nt Illness No Information Instructions Date Instruction Additional Infor mation No Information Assessments Type Assessment Date No Information
--- OUTSIDE RECORDS SUMMARY | 2025-06-29 01:18 | XMS_ITS | Encounter Summary ---
Author Organization [facility] Address 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 BROKER Gender Identity Not on file Sexual [...] 2:04 PM CDT) DIRECT ANTIGLOBULIN POLY Negative [facility] 08/24/2008 2:04 PM CDT Murphy Wilson MD BLOOD BANK ORDERABLES Final Result Performing Organization Address City/[facility] Phone Number INTERFACE SYSTEM Refer to clinic/hospital department [facility] CLIA# [id number] [address] [place] [address] * ANTIBODY IDENTIFICATION (08/24/2008 2:04 PM CDT) ANTIBODY ID PANEL SolidPhase Ab Only [facility] 08/24/2008 2:04 PM CDT Murphy Wilson MD BLOOD BANK ORDERABLES Final Result Performing Organization Address [facility] Phone Number INTERFACE SYSTEM Refer to clinic/hospital department [facility] CLIA# [id number] [address] [place] [address] * TYPE AND SCREEN (08/24/2008 2:04 PM CDT) HISTORY CHECK History Checked [facility] SPECIMEN LIFE 3 days from drawdate [facility] ABO/RH TYPE A Positive [facility] ANTIBODY SCREEN Positive [facility] Blood specimen (specimen) 08/24/2008 2:04 PM CDT Murphy Wilson MD BLOOD BANK ORDERABLES Edited Performing Organization Address City/[facility] de Phone Number INTERFACE SYSTEM Refer to clinic/hospital department [facility] CLIA# [id number] [address] [place] [address] * (ABNORMAL) URINALYSIS (08/24/2008 2:04 PM CDT) KETONES UA Negative Negative [facility] WBC UA 3 0 - 5 /HPF [facility] CLARITY UA Slt. Cloudy(A) Clear [facility] PROTEIN UA Negative Negative [facility] EPITHELIAL CELLS, URINE 5-10 /HPF [facility] BILIRUBIN UA Negative Negative [facility] LEUKOCYTE ESTERASE UA 2+(A) Negative [facility] RBC UA 1 0 - 4 /HPF [facility] SPECIFIC GRAVITY UA 1.006 1.001 - 1.035 [facility] BLOOD UA Negative Negative [facility] GLUCOSE UA Negative Negative [facility] COLOR UA Pale Yellow [facility] NITRITE UA Negative Negative [facility] UROBILINOGEN UA <1 <=1 mg/dL [facility] BACTERIA UA 1+(A) None Seen /HPF [facility] PH UA 6.0 5.0 - 8.0 [facility] Urine specimen (specimen) 08/24/2008 2:04 PM CDT 08/24/2008 2:19 PM CDT us Murphy Wilson MD URINE ORDERABLES Final Resul t Performing Organization Address [facility] de Phone Number INTERFACE SYSTEM Refer to clinic/hospital department [facility] CLIA# [id number] [address] [place] [address] * CBC WITH DIFFERENTIAL (08/24/2008 2:04 PM CDT) RBC 4.06 3.90 - 4.90 M/uL [facility] MCHC 33.9 31.5 - 35.5 % [facility] MCV 88.7 82.0 - 99.0 fL [facility] PLATELETS 253 140 - 350 K/uL [facility] HEMOGLOBIN 12.2 11.8 - 14.8 g/dL [facility] RDW 13.5 11.5 - 14.5 % [facility] WBC 8.8 4.0 - 9.8 K/uL [facility] MCH 30.0 27.2 - 32.6 pg [facility] MPV 9.8 9.3 - 12.4 fL [facility] HEMATOCRIT 36.0 35.5 - 44.0 % [facility] RDW-STDEV 43.4 37.1 - 48.7 fL [facility] MONOCYTE ABSOLUTE 0.65 0.10 - 1.30 K/uL [facility] NEUTROPHILS 69 45 - 70 % [facility] NEUTROPHIL ABSOLUTE 6.04 1.90 - 7.00 K/uL [facility] EOSINOPHILS 1 0 - 7 % [facility] BASOPHILS ABSOLUTE 0.01 0.00 - 0.20 K/uL [facility] LYMPHOCYTES 23 16 - 45 % [facility] LYMPHOCYTE ABSOLUTE 2.02 0.70 - 4.50 K/uL [facility] BASOPHILS 0 0 - 2 % [facility] EOSINOPHIL ABSOLUTE 0.06 0.00 - 0.70 K/uL [facility] MONOCYTES 7 3 - 13 % [facility] Blood specimen (specimen) 08/24/2008 2:04 PM CDT 08/24/2008 2:19 PM CDT us Murphy Wilson MD HEMATOLOGY ORDERABLES Edited INTERFACE SYSTEM Refer to clinic/hospital department [facility] CLIA# [id number] [address] [place] [address] documented in this encounter Visit Diagnoses Diagnosis delivery, without mention of indication, delivered, with or without mention of antepartum condition Normal delivery documented in this encounter Care Teams Chronometer Tester Relationship Specialty Start Date End Date Keli Smith MD [address] [place] [address] PCP - General Family Practice 08/22/21 documented as of this encounter
--- OUTSIDE RECORDS SUMMARY | 2025-06-29 01:18 | XMS_ITS | Clinical Summary ---
Author Organization [facility] Address [address] [facility] [place] [address] Care Team Providers Care Bee Robber Name Role Phone Jamal Jama MD Primary Care Provider [phone] Source Comments [facility],non-owned Affiliates and Associated Physician Practices is amultiple site organization consisting of ambulatory clinics and hospital sitesin [place], [place], [place] and [place]. This disclosure is being madepursuant to the Care Everywhere program and may not contain all information available regarding this patient. Last updated 18.[facility] Allergies No known active allergies Medications * [...] Comments Blood Pressure 144/82 10/20/2017 4:26 PM SPECTROGRAPH OPERATOR Pulse 103 10/20/2017 4:26 PM SPECTROGRAPH OPERATOR Temperature 37 C (98.6 F) 10/20/2017 4:26 PM SPECTROGRAPH OPERATOR Respiratory Rate 16 10/20/2017 4:26 PM SPECTROGRAPH OPERATOR Oxygen Saturation 99% 10/20/2017 4:26 PM SPECTROGRAPH OPERATOR Inhaled Oxygen Concentration - - Weight 73.9 kg (163 lb) 10/20/2017 4:26 PM SPECTROGRAPH OPERATOR Height 172.7 cm (5' 8) 10/20/2017 4:26 PM SPECTROGRAPH OPERATOR Body Mass Index 24.78 10/20/2017 4:26 PM SPECTROGRAPH OPERATOR Plan of Treatment Health Maintenance Due Date [...] patient's age to complete this topic Insurance [facility]ARE [facility] CARE Care Teams Bee Robber Relationship Specialty Start Date End Date Jamal Jama MD PCP - General Family Medicine 08/18/17
--- OUTSIDE RECORDS SUMMARY | 2025-06-29 01:18 | XMS_ITS | Encounter Summary ---
Author Organization [facility] Address 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
--- OUTSIDE RECORDS SUMMARY | 2025-06-29 01:18 | XMS_ITS | Encounter Summary ---
Author Organization [facility] Address [address] [place] [address] Care Team Providers Care Production Line Technician Name Role Phone Keli Smith MD Primary Care Provider [phone] Encounter Details Date Type Department Care Team (Late st Contact Info) Description 08/30/1999 Outpatient Historical [facility] Internal Medicine - [place] [address] [place] [address] [place] [address] [place] [address] Social History Tobacco Use Types Packs/Day Years Used Date Smoking Tobacco: Never Assessed Comments Unknown Sex and Gender Information Value Date Recorded Sex Assigned at Not on file Legal Sex Female 5:04 AM CHIEF CONTROLLER STATION Gender Identity Not on file Sexual Orientation Not on file documented as of this encounter Plan of Treatment Not on file documented as of this encounter Visit Diagnoses Not on filedocumented in this encounter Care Teams Production Line Technician Relationship Specialty Start Date End Date Keli Smith MD [address] [place] [address] PCP - General Family Practice 08/22/21 documented as of this encounter
--- OUTSIDE RECORDS SUMMARY | 2025-06-29 01:18 | XMS_ITS | Encounter Summary ---
Author Organization [employer] [facility] Address [address] [place] [address] Care Team Providers Care Suspender Cutter Name Role Phone Keli Smith MD Primary Care Provider [phone] Encounter Details Date Type Department Care Team (Latest Contact Info) Description 06/15/2003 Outpatient Historical [facility] SHAKIR Lindsey, [place] [address] [place] [address] ELB/FOREARM/WRST INJURY NOS (Primary Dx) Social History Tobacco Use Types Packs/Day Years Used Date Smoking Tobacco: Never Assessed Comments Unknown Sex and Gender Information Value Date Recorded Sex Assigned at Not on file Legal Sex Female 5:04 AM ECHO TECH Gender Identity Not on file Sexual Orientation Not on file documented as of this encounter Plan of Treatment Not on file documented as of this encounter Visit Diagnoses Diagnosis Injury, other and unspecified, elbow, forearm, and wrist- Primary documented in this encounter Care Teams Suspender Cutter Relationship Specialty Start Date End Date Keli Smith MD [address] [place] [address] PCP - General Family Practice 08/22/21 documented as of this encounter
--- OUTSIDE RECORDS SUMMARY | 2025-06-29 01:18 | XMS_ITS | Encounter Summary ---
Author Organization [facility] Address [address] [place] [address] Care Team Providers Care Layout Man Name Role Phone Keli Smith MD Primary Care Provider Encounter Details Date Type Department Care Team (Late st Contact Info) Description 03/10/2001 Outpatient [facility] [address] [place] [address] Abdoul Birmingham (Two) Social History Tobacco Use Types Packs/Day Years Used Date Smoking Tobacco: Never Assessed Comments Unknown Sex and Gender Information Value Date Recorded Sex Assigned at Not on file Legal Sex Female 5:04 AM PRACTICAL NURSING INSTRUCTOR Gender Identity Not on file Sexual Orientation Not on file documented as of this encounter Plan of Treatment Not on file documented as of this encounter Visit Diagnoses Not on filedocumented in this encounter Care Teams Layout Man Relationship Specialty Start Date End Date Keli Smith MD [address] [place] [address] PCP - General Family Practice 08/22/21 documented as of this encounter
--- OUTSIDE RECORDS SUMMARY | 2025-06-29 01:18 | XMS_ITS | Encounter Summary ---
Author Organization [facility] Address [address] [place] [address] Care Team Providers Care Day Care Teacher Name Role Phone Keli Smith MD Primary Care Provider [phone] Encounter Details Date Type Department Care Team (Late st Contact Info) Description 12/24/2000 Outpatient [facility] [address] [place] [address] Abdoul Birmingham (Two) Social History Tobacco Use Types Packs/Day Years Used Date Smoking Tobacco: Never Assessed Comments Unknown Sex and Gender Information Value Date Recorded Sex Assigned at Not on file Legal Sex Female 5:04 AM SEXUAL ASSAULT COUNSELLOR Gender Identity Not on file Sexual Orientation Not on file documented as of this encounter Plan of Treatment Not on file documented as of this encounter Visit Diagnoses Not on filedocumented in this encounter Care Teams Day Care Teacher Relationship Specialty Start Date End Date Keli Smith MD [address] [place] [address] PCP - General Family Practice 08/22/21 documented as of this encounter
--- OUTSIDE RECORDS SUMMARY | 2025-06-29 06:03 | XMS_ITS | Encounter Summary ---
Author Organization [facility] Address [address] [place] [address] Care Team Providers Care Apartment House Manager Name Role Phone Keli Smith MD Primary Care Provider Encounter Details Date Type Department Care Team (Late st Contact Info) Description 11/13/2000 Outpatient Historical [facility] Internal Medicine - [place] [address] [place] [address] [place] [address] [place] [address] Social History Tobacco Use Types Packs/Day Years Used Date Smoking Tobacco: Never Assessed Comments Unknown Sex and Gender Information Value Date Recorded Sex Assigned at Not on file Legal Sex Female 5:04 AM PHOTOGRAPHY INTERN Gender Identity Not on file Sexual Orientation Not on file documented as of this encounter Plan of Treatment Not on file documented as of this encounter Visit Diagnoses Not on filedocumented in this encounter Care Teams Apartment House Manager Relationship Specialty Start Date End Date Keli Smith MD [address] [place] [address] PCP - General Family Practice 08/22/21 documented as of this encounter
--- OUTSIDE RECORDS SUMMARY | 2025-06-29 06:03 | XMS_ITS | Encounter Summary ---
Author Organization [facility] Address [address] [place] [address] Care Team Providers Care Pattern Changer And Repairer Name Role Phone Keli Smith MD Primary Care Provider [phone] Encounter Details Date Type Department Care Team (Late st Contact Info) Description 06/15/2003 Outpatient Historical [facility] Internal Medicine - [place] [address] [place] [address] [place] [address] [place] [address] Social History Tobacco Use Types Packs/Day Years Used Date Smoking Tobacco: Never Assessed Comments Unknown Sex and Gender Information Value Date Recorded Sex Assigned at Not on file Legal Sex Female 5:04 AM SEARCH PLANNER Gender Identity Not on file Sexual Orientation [...] on filedocumented in this encounter Care Teams Pattern Changer And Repairer Relationship Specialty Start Date End Date Keli Smith MD [address] [place] [address] PCP - General Family Practice 08/22/21 documented as of this encounter
--- OUTSIDE RECORDS SUMMARY | 2025-06-29 06:03 | XMS_ITS | Encounter Summary ---
Author Organization [facility] Address [address] [place] [address] Care Team Providers Care Acute Care Registered Nurse Name Role Phone Keli Smith MD Primary Care Provider [phone] Encounter Details Date Type Department Care Team (Late st Contact Info) Description 02/09/1999 Outpatient Historical [facility] Internal Medicine - [place] [address] [place] [address] [place] [address] [place] [address] Social History Tobacco Use Types Packs/Day Years Used Date Smoking Tobacco: Never Assessed Comments Unknown Sex and Gender Information Value Date Recorded Sex Assigned at Not on file Legal Sex Female 5: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
--- OUTSIDE RECORDS SUMMARY | 2025-06-29 06:03 | XMS_ITS | Encounter Summary ---
Author Organization [facility] Address [address] [place] [address] Care Team Providers Care Pie Dough Roller Name Role Phone Keli Smith MD Primary Care Provider Encounter Details Date Type Department Care Team (Late st Contact Info) Description 03/10/2001 Outpatient [facility] [address] [facility] 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
--- OUTSIDE RECORDS SUMMARY | 2025-06-29 06:03 | XMS_ITS | Encounter Summary ---
Author Organization [facility] Address [address] [place] [address] Care Team Providers Care Sap Fico Architect Name Role Phone Keli Smith MD Primary Care Provider [phone] Encounter Details Date Type Department Care Team (Late st Contact Info) Description 08/30/1999 Outpatient Historical [facility] Internal Medicine - [place] [address] [place] [address] [place] [address] [place] [address] Social History Tobacco Use Types Packs/Day Years Used Date Smoking Tobacco: Never Assessed Comments Unknown Sex and Gender Information Value Date Recorded Sex Assigned at Not on file Legal Sex Female 5:04 AM BARREL CHARRER HELPER Gender Identity Not on file Sexual Orientation Not on file documented as of this encounter Plan of Treatment Not on file documented as of this encounter Visit Diagnoses Not on filedocumented in this encounter Care Teams Sap Fico Architect Relationship Specialty Start Date End Date Keli Smith MD [address] [place] [address] PCP - General Family Practice 08/22/21 documented as of this encounter
--- OUTSIDE RECORDS SUMMARY | 2025-06-29 06:03 | XMS_ITS | Clinical Summary ---
Author Organization [facility] Address [address] [place] [address] Phone Care Team Providers Care Senior Software Architect Name Role Phone Keli Smith MD Primary Care Provider [phone] Allergies Active Allergy Reactions Criticality Noted Date [...] Type Department Care Team Description 06/23/2025 Refill [facility] DIGITAL COMMUNICATIONS MANAGER [facility] [address] [address] [place] [address] Murphy Wilson MD 06/08/2025 External Device Data STL ABSTRACTION Provider, Abstract 06/07/2025 External Device Data ST[facility] ABSTRACTION Provider, Abstract 05/10/2025 External Device Data ST[facility] ABSTRACTION Provider, Abstract 04/26/2025 External Device Data ST[facility] ABSTRACTION Provider, Abstract 04/25/2025 9:40 AM CDT Video Visit [facility] DIGITAL COMMUNICATIONS MANAGER [facility] [address] [facility] [address] [place] [address] Murphy Wilson MD Menopausal symptoms (Primary Dx) 04/14/2025 External Device Data STL ABSTRACTION Provider, Abstract 04/13/2025 External Device Data STL ABSTRACTION Provider, Abstract 04/12/2025 External Device Data STL ABSTRACTION Provider, Abstract 04/01/2025 Telephone [facility] Women's Health Clinical Support [address] [place] [address] Haleigh Denis RN Question 03/30/2025 Results Follow-Up [facility] DIGITAL COMMUNICATIONS MANAGER [facility] [address] [facility] [address] [place] [address] Murphy Wilson MD PROGESTERONE, TSH, ESTRADIOL, Additional followed-up results: 2 03/29/2025 3:10 PM CDT Office Visit [facility] DIGITAL COMMUNICATIONS MANAGER [facility] [address] [facility] [address] [place] [address] Murphy Wilson MD Postoperative follow-up (Primary Dx); [...] on file Legal Sex Female 5:04 AM FLATWORK FINISHER HAND Gender Identity Not on file Sexual Orientation [...] (03/29/2025 3:26 PM CDT) PROGESTERONE <0.5 ng/mL [facility] Comment: Reference Ranges Female Follicular Phase < 1.0 Luteal Phase 2.6-21.5 Post menopausal < 0.5 1st Trimester 4.1-34.0 2nd Trimester 24.0-76.0 3rd Trimester 52.0-302.0 Test Performed at: [facility] [address] [place] [address] [address] Tramaine Turcios Blood 03/29/2025 3:26 PM CDT 03/29/2025 3:27 PM CDT Murphy Wilson MD CHEMISTRY ORDERABLES Final R esult [facility] [phone] [facility] [address] [place] [address] * ESTRADIOL (03/29/2025 3:26 PM CDT) ESTRADIOL <15 pg/mL [facility] Comment: Reference Range Follicular Phase: 19-144 Mid-Cycle: 64-357 Luteal Phase: 56-214 Postmenopausal: < or = 31 Reference range established on post-pubertal patient population. No pre-pubertal reference range established using this assay. For any patients for whom low Estradiol levels are anticipated (e.g. males, pre-pubertal children and hypogonadal/post-menopausal females), the [facility] Estradiol, Ultrasensitive, LCMSMS assay is recommended (order code 12171). Please note: patients being treated with the drug fulvestrant (Faslodex(R)) have demonstrated significant interference in immunoassay methods for estradiol measurement. The cross reactivity could lead to falsely elevated estradiol test results leading to an inappropriate clinical assessment of estrogen status. [facility] order code [id number], Ultrasensitive LC/MS/MS demonstrates negligible cross reactivity with fulvestrant. Test Performed at: [facility] [address] [place] [address] [facility] Vo Blood 03/29/2025 3:26 PM CDT 03/29/2025 3:27 PM CDT Murphy Wilson MD CHEMISTRY ORDERABLES Final R esult Performing Organization Address [facility]/ZIP Code Phone Number [facility] [phone] [place] [address] [place] [address] * TSH (03/29/2025 3:26 PM CDT) TSH 1.45 mIU/L [facility] Comment: Reference Range > or = 20 Years 0.40-4.50 Ranges First trimester 0.26-2.66 Second trimester 0.55-2.73 Third trimester 0.43-2.91 Test Performed at: [facility] [place] [address] [place] [address] [facility] Vo Blood 03/29/2025 3:26 PM CDT 03/29/2025 3:27 PM CDT Murphy Wilson MD CHEMISTRY ORDERABLES Final R esult Performing Organization Address [facility] Code Phone Number [facility] [phone] [place] [address] [place] [address] * LUTEINIZING HORMONE (03/29/2025 3:26 PM CDT) LUTEINIZING HORMONE 44.8 mIU/mL [facility] Comment: Reference Range Follicular Phase 1.9-12.5 Mid-Cycle Peak 8.7-76.3 Luteal Phase 0.5-16.9 Postmenopausal 10.0-54.7 Test Performed at: [facility] [id number] [place] [address] Tramaine Turcios MD Blood 03/29/2025 3:26 PM CDT 03/29/2025 3:27 PM CDT us Murphy Wilson MD CHEMISTRY ORDERABLES Final R esult Performing Organization Address [facility]/ZIP Co de Phone Number [facility] [phone] [facility] [address] [place] [address] * FSH (03/29/2025 3:26 PM CDT) FSH 104.2 mIU/mL [facility] Comment: Reference Range Follicular Phase 2.5-10.2 Mid-cycle Peak 3.1-17.7 Luteal Phase 1.5- 9.1 Postmenopausal 23.0-116.3 Test Performed at: [facility] [address] [place] [address] ShahrzadKelle Turcios MD Blood 03/29/2025 3:26 PM CDT 03/29/2025 3:27 PM CDT us Murphy Wilson MD CHEMISTRY ORDERABLES Final R esult Performing Organization Address [facility]/ZIP Co de Phone Number [facility] [phone] [facility] [address] [place] [address] * COLONOSCOPY REPORT (09/04/2021 9:12 AM CDT) Narrative Procedure Note Louie Bains MD - 09/04/2021 9:11 AM CDT [facility] Endoscopy Patient Name: Shruthi Gordon Procedure Date: [...] of Addenda: [address]; [place] [address] Louie Bains MD GI PROCEDURE ORDERABL ES Final Result * CERV/VAG CYTO SCREEN PAP W/HPV (06/27/2021 1:07 PM CDT) CLINICAL INFORMATION [facility] Comment:Information not prov ided LAST MENSTRUAL PERIOD [facility] Comment:INFORMATION NOT PROV IDED PREV PAP: [facility] Comment:INFORMATION NOT PROV IDED PREV BX: [facility] Comment:INFORMATION NOT PROV IDED SOURCE [facility] Comment:Endocervix ADEQUACY: [facility] Comment: Satisfactory for evaluation. Endocervical/transformation zone component absent. Age and/or menstrual status not provided PAP INTERP [facility] Comment:Negative for intraep ithelial lesion or malignancy. COMMENT [facility] Comment: This Pap test has been evaluated with computer assisted technology. HARBOUR MASTER: [facility] Comment: BES, CT(ASCP) CT screening location: [place] [address] [place] [address] SEE NOTE [facility] Comment: EXPLANATORY NOTE: The Pap is [...] information. HPV E6/E7 Not Detected Not Detected [facility] Comment: Methodology: Garland Maker-Mediated Amplification This assay detects E6/E7 viral messenger RNA (mRNA) from 14 high-risk HPV types (16,18,31,33,35,39,45,51,52,56,58,59,66,68). The analytical performance characteristics of this assay have been determined by [facility]. The modifications have not been cleared or approved by the FDA. This assay has been validated pursuant to the CLIA regulations and is used for clinical purposes. For additional information, please refer to http://education.Herz[employer]bo [employer]/faq/LUK195i6 (This link if provided for information/ educational purposes only.) Test Performed at: [facility] [address] [place] [address] Louie Damon D.O., MPH SL Genital SWAB OF ENDOCERVIX / Unknown 06/27/2021 1:07 PM CDT 06/28/2021 2:36 AM CDT us Murphy Wilson MD PATHOLOGY/CYTOLOGY ORDERABLE S Final Result [facility] [address] [place] [address] * (ABNORMAL) MAMMO DIAGNOSTIC UNI [...] in the upper-outer right breast. DICTATED LOCATION: [facility] 07/22/2017 1:17 PM CDT RIGHT [...] in the upper-outer right breast. DICTATED LOCATION: [facility] Jamal Jama MD MAMMO ORDERABLES Final Result from Last 3 Months or Most Recently Relevant to Health Maintenance Insurance [facility] [id number] Advance Directives For more information, please contact: [phone] * Full Code (Latest Code Status on File) Date Activated Date Inactivated Comments 01/20/2012 4:42 PM 01/20/2012 8:00 PM Care Teams Senior Software Architect Relationship Specialty Start Date End Date Keli Smith MD [address] [place] [address] PCP - General Family Practice 08/22/21
--- OUTSIDE RECORDS SUMMARY | 2025-06-29 06:03 | XMS_ITS | Clinical Summary ---
Author Organization [facility] Address [address] [facility] [place] [address] Care Team Providers Care Healthcare Applications Analyst Name Role Phone Jamal Jama MD Primary Care Provider [phone] Source Comments [facility],non-owned Affiliates and Associated Physician Practices is amultiple site organization consisting of ambulatory clinics and hospital sitesin [place], [place], [place] and [place]. This disclosure is being madepursuant to the Care Everywhere program and may not contain all information available regarding this patient. Last updated 18.[facility] Allergies No known active allergies Medications * [...] Comments Blood Pressure 144/82 10/20/2017 4:26 PM DIESEL ENGINE II PIPE FITTER Pulse 103 10/20/2017 4:26 PM DIESEL ENGINE II PIPE FITTER Temperature 37 C (98.6 F) 10/20/2017 4:26 PM DIESEL ENGINE II PIPE FITTER Respiratory Rate 16 10/20/2017 4:26 PM DIESEL ENGINE II PIPE FITTER Oxygen Saturation 99% 10/20/2017 4:26 PM DIESEL ENGINE II PIPE FITTER Inhaled Oxygen Concentration - - Weight 73.9 kg (163 lb) 10/20/2017 4:26 PM DIESEL ENGINE II PIPE FITTER Height 172.7 cm (5' 8) 10/20/2017 4:26 PM DIESEL ENGINE II PIPE FITTER Body Mass Index 24.78 10/20/2017 4:26 PM DIESEL ENGINE II PIPE FITTER Plan of Treatment Health Maintenance Due Date [...] patient's age to complete this topic Insurance [facility] Care Teams Healthcare Applications Analyst Relationship Specialty Start Date End Date Jamal Jama MD PCP - General Family Medicine 08/18/17
--- OUTSIDE RECORDS SUMMARY | 2025-06-29 06:03 | XMS_ITS | Encounter Summary ---
Author Organization [email or web address] Address 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-DELIVER (Primary Dx) Social History Tobacco Use Types Packs/Day Years Used Date Smoking Tobacco: Never Assessed Comments Unknown Sex and Gender Information Value Date Recorded Sex Assigned at Not on file Legal Sex Female 5:04 AM RELIGIOUS HEALER Gender Identity Not on file Sexual Orientation Not on file documented as of this encounter Plan of Treatment Not on file documented as of this encounter Procedures Procedure Name Priority Date/Time Associated Diagnosis Comments CBC WITH DIFFERENTIAL Routine 01/13/2006 3:00 PM RELIGIOUS HEALER CBC WITH DIFFERENTIAL Routine 01/13/2006 3:00 PM RELIGIOUS HEALER URINALYSIS W/REFLEX MICROSCOPIC Routine 01/13/2006 3:00 PM RELIGIOUS HEALER documented in this encounter Results * (ABNORMAL) CBC WITH DIFFERENTIAL (01/13/2006 3:00 PM RELIGIOUS HEALER) NEUTROPHILS 71(H) 45 - 70 % INTERFAC [...] 0.20 K/uL INTERFACE SYSTEM 01/13/2006 3:00 PM RELIGIOUS HEALER Murphy Wilson MD HEMATOLOGY ORDERABLES Final Result Performing Organization Address City[facility] de Phone Number INTERFACE SYSTEM Refer to clinic/hospital department * (ABNORMAL) CBC WITH DIFFERENTIAL (01/13/2006 3:00 PM RELIGIOUS HEALER) WBC 9.9(H) 4.0 - 9.8 K/uL INTERFACE [...] 12.4 fL INTERFACE SYSTEM 01/13/2006 3:00 PM RELIGIOUS HEALER Murphy Wilson MD HEMATOLOGY ORDERABLES Final Result INTERFACE SYSTEM Refer to clinic/hospital department * (ABNORMAL) URINALYSIS (01/13/2006 3:00 PM RELIGIOUS HEALER) COLOR UA Yellow INTERFACE SYSTEM CLARITY UA [...] Many /HPF INTERFACE SYSTEM 01/13/2006 3:00 PM RELIGIOUS HEALER us Murphy Wilson MD URINE ORDERABLES Final Resul t INTERFACE SYSTEM Refer to clinic/hospital department documented in this encounter Visit Diagnoses Diagnosis Breech presentation without mention of version, delivered- Primary documented in this encounter Care Teams Chip Mixing Machine Operator Relationship Specialty Start Date End Date Keli Smith MD [address] [place] [address] PCP - General Family Practice 08/22/21 documented as of this encounter
--- OUTSIDE RECORDS SUMMARY | 2025-06-29 06:03 | XMS_ITS | Encounter Summary ---
Author Organization [facility] Address [address] [place] [address] Care Team Providers Care Paper Cutter Operator Name Role Phone Keli Smith MD Primary Care Provider [phone] Encounter Details Date Type Department Care Team (Late st Contact Info) Description 09/28/2003 Outpatient Historical [facility] Internal Medicine - [place] [address] [place] [address] [place] [address] [place] [address] Social History Tobacco Use Types Packs/Day Years Used Date Smoking Tobacco: Never Assessed Comments Unknown Sex and Gender Information Value Date Recorded Sex Assigned at Not on file Legal Sex Female 5:04 AM TERMITE TREATER Gender Identity Not on file Sexual Orientation Not on file documented as of this encounter Last Filed Vital Signs Vital Sign Reading Time Taken Comments Blood Pressure 122/80 09/28/2003 11:30 AM TERMITE TREATER Pulse - - Temperature - - Respiratory Rate - - Oxygen Saturation - - Inhaled Oxygen Concentration - - Weight 62.6 kg (138 lb) 09/28/2003 11:30 AM TERMITE TREATER Height - - Body Mass Index - - documented in this encounter Plan of Treatment Not on file documented as of this encounter Visit Diagnoses Not on filedocumented in this encounter Care Teams Paper Cutter Operator Relationship Specialty Start Date End Date Keli Smith MD [address] [place] [address] PCP - General Family Practice 08/22/21 documented as of this encounter
--- OUTSIDE RECORDS SUMMARY | 2025-06-29 06:03 | XMS_ITS | Encounter Summary ---
Author Organization [facility] Address [address] [place] [address] Care Team Providers Care Motion Picture Photographer Name Role Phone Keli Smith MD Primary Care Provider [phone] Encounter Details Date Type Department Care Team (Latest Contact Info) Description 08/24/2008 Outpatient Historical [facility] Murphy Wilson MD [facility] [address] [address] Deliv; Normal Delivery Social History Tobacco Use Types Packs/Day Years Used Date Smoking Tobacco: Never Assessed Comments Unknown Sex and Gender Information Value Date Recorded Sex Assigned at Not on file Legal Sex Female 5:04 AM RN SURGICAL Gender Identity Not on file Sexual Orientation [...] 2:04 PM CDT) DIRECT ANTIGLOBULIN POLY Negative [facility] 08/24/2008 2:04 PM CDT Murphy Wilson MD BLOOD BANK ORDERABLES Final Result Performing Organization Address City/[facility] Phone Number INTERFACE SYSTEM Refer to clinic/hospital department [facility] CLIA# [id number] [address] [place] [address] * ANTIBODY IDENTIFICATION (08/24/2008 2:04 PM CDT) ANTIBODY ID PANEL SolidPhase Ab Only [facility] 08/24/2008 2:04 PM CDT Murphy Wilson MD BLOOD BANK ORDERABLES Final Result Performing Organization Address [facility] Phone Number INTERFACE SYSTEM Refer to clinic/hospital department [facility] CLIA# [id number] [address] [place] [address] * TYPE AND SCREEN (08/24/2008 2:04 PM CDT) HISTORY CHECK History Checked [facility] SPECIMEN LIFE 3 days from drawdate [facility] ABO/RH TYPE A Positive [facility] ANTIBODY SCREEN Positive [facility] Blood specimen (specimen) 08/24/2008 2:04 PM CDT Murphy Wilson MD BLOOD BANK ORDERABLES Edited Performing Organization Address City/[facility] de Phone Number INTERFACE SYSTEM Refer to clinic/hospital department [facility] CLIA# [id number] [address] [place] [address] * (ABNORMAL) URINALYSIS (08/24/2008 2:04 PM CDT) KETONES UA Negative Negative [facility] WBC UA 3 0 - 5 /HPF [facility] CLARITY UA Slt. Cloudy(A) Clear [facility] PROTEIN UA Negative Negative [facility] EPITHELIAL CELLS, URINE 5-10 /HPF [facility] BILIRUBIN UA Negative Negative [facility] LEUKOCYTE ESTERASE UA 2+(A) Negative [facility] RBC UA 1 0 - 4 /HPF [facility] SPECIFIC GRAVITY UA 1.006 1.001 - 1.035 [facility] BLOOD UA Negative Negative [facility] GLUCOSE UA Negative Negative [facility] COLOR UA Pale Yellow [facility] NITRITE UA Negative Negative [facility] UROBILINOGEN UA <1 <=1 mg/dL [facility] BACTERIA UA 1+(A) None Seen /HPF [facility] PH UA 6.0 5.0 - 8.0 [facility] Urine specimen (specimen) 08/24/2008 2:04 PM CDT 08/24/2008 2:19 PM CDT us Murphy Wilson MD URINE ORDERABLES Final Resul t Performing Organization Address [facility] de Phone Number INTERFACE SYSTEM Refer to clinic/hospital department [facility] CLIA# [id number] [address] [place] [address] * CBC WITH DIFFERENTIAL (08/24/2008 2:04 PM CDT) RBC 4.06 3.90 - 4.90 M/uL [facility] MCHC 33.9 31.5 - 35.5 % [facility] MCV 88.7 82.0 - 99.0 fL [facility] PLATELETS 253 140 - 350 K/uL [facility] HEMOGLOBIN 12.2 11.8 - 14.8 g/dL [facility] RDW 13.5 11.5 - 14.5 % [facility] WBC 8.8 4.0 - 9.8 K/uL [facility] MCH 30.0 27.2 - 32.6 pg [facility] MPV 9.8 9.3 - 12.4 fL [facility] HEMATOCRIT 36.0 35.5 - 44.0 % [facility] RDW-STDEV 43.4 37.1 - 48.7 fL [facility] MONOCYTE ABSOLUTE 0.65 0.10 - 1.30 K/uL [facility] NEUTROPHILS 69 45 - 70 % [facility] NEUTROPHIL ABSOLUTE 6.04 1.90 - 7.00 K/uL [facility] EOSINOPHILS 1 0 - 7 % [facility] BASOPHILS ABSOLUTE 0.01 0.00 - 0.20 K/uL [facility] LYMPHOCYTES 23 16 - 45 % [facility] LYMPHOCYTE ABSOLUTE 2.02 0.70 - 4.50 K/uL [facility] BASOPHILS 0 0 - 2 % [facility] EOSINOPHIL ABSOLUTE 0.06 0.00 - 0.70 K/uL [facility] MONOCYTES 7 3 - 13 % [facility] Blood specimen (specimen) 08/24/2008 2:04 PM CDT 08/24/2008 2:19 PM CDT us Murphy Wilson MD HEMATOLOGY ORDERABLES Edited INTERFACE SYSTEM Refer to clinic/hospital department [facility] CLIA# [id number] [address] [place] [address] documented in this encounter Visit Diagnoses Diagnosis delivery, without mention of indication, delivered, with or without mention of antepartum condition Normal delivery documented in this encounter Care Teams Motion Picture Photographer Relationship Specialty Start Date End Date Keli Smith MD [address] [place] [phone] PCP - General Family Practice 08/22/21 documented as of this encounter
--- OUTSIDE RECORDS SUMMARY | 2025-06-29 06:03 | XMS_ITS | Encounter Summary ---
Author Organization [facility] Address [address] [place] [address] Care Team Providers Care Electrical Appliance Preparer Name Role Phone Keli Smith MD Primary Care Provider [phone] Encounter Details Date Type Department Care Team (Late st Contact Info) Description 06/02/2002 Outpatient Historical [facility] Internal Medicine - [place] [address] [place] [address] [place] [address] [place] [id number] Social History Tobacco Use Types Packs/Day Years Used Date Smoking Tobacco: Never Assessed Comments Unknown Sex and Gender Information Value Date Recorded Sex Assigned at Not on file Legal Sex Female 5: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
--- OUTSIDE RECORDS SUMMARY | 2025-06-29 06:03 | XMS_ITS | Encounter Summary ---
Author Organization [facility] Address [address] [place] [address] Care Team Providers Care Exercise Physiologist Certified Name Role Phone Keli Smith MD Primary Care Provider Encounter Details Date Type Department Care Team (Late st Contact Info) Description 12/24/[address] [facility] [address] [place] [address] Abdoul Birmingham (Two) Social History Tobacco Use Types Packs/Day Years Used Date Smoking Tobacco: Never Assessed Comments Unknown Sex and Gender Information Value Date Recorded Sex Assigned at Not on file Legal Sex Female 5:04 AM MOTOR EQUIPMENT CAPTAIN Gender Identity Not on file Sexual Orientation Not on file documented as of this encounter Plan of Treatment Not on file documented as of this encounter Visit Diagnoses Not on filedocumented in this encounter Care Teams Exercise Physiologist Certified Relationship Specialty Start Date End Date Keli Smith MD [address] [place] [address] PCP - General Family Practice 08/22/21 documented as of this encounter
--- OUTSIDE RECORDS SUMMARY | 2025-06-29 06:03 | XMS_ITS | Continuity of Care Document ---
Author Organization [facility] Address [address] [place] [address] Phone Care Team Providers Care Housekeeping Staff Name Role Phone MD THOMAS GILBERT Unavailable Unavailable Advance Directives Directive Yes / No Effective Date File Name No Information Encounters Encounter Description Practice Location Reason(s) For Visit Diagnoses Date Provider Providers Copied on Encounter [facility], [address] [facility], [place], [place], [id number], [place] tel:[phone] [facility] No Information MD RUTHIE THOMAS. [address] [place] [address], [id number], [place]. tel:[phone] Referring Provider: CEDRIC Hines, [address] [place], [address]. tel:[phone] Family History Family Member Type Diagnosis Age At Onset No Information Payers Payer name Insurance type Covered libertarian ID Authorsalomóna kuldip(s) [facility] POS [id number] CI [id number] Social History Type Description Quantity Date Captured Comments Sex Female Smoking Status No Information Chief Complaint And Reason For Visit No Information History Of Present Illness Encounter Date Complaint History Of Prese nt Illness No Information Instructions Date Instruction Additional Infor mation No Information Assessments Type Assessment Date No Information
--- OUTSIDE RECORDS SUMMARY | 2025-06-29 06:03 | XMS_ITS | Encounter Summary ---
Author Organization [facility] Address [address] Attn: Epic Prelude ADT [address] [place] [address] Care Team Providers Care Global Process Owner Name Role Phone Keli Smith MD Primary Care Provider [phone] Encounter Details Date Type Department Care Team ([facility] st Contact Info) Description 06/12/1998 Outpatient Historical Conversion, History Social History Tobacco Use Types Packs/Day Years Used Date Smoking Tobacco: Never Assessed Comments Unknown Sex and Gender Information Value Date Recorded Sex Assigned at Not on file Legal Sex Female 5:04 AM COAL OR ORE CONTROLLER Gender Identity Not on file Sexual Orientation Not on file documented as of this encounter Plan of Treatment Not on file documented as of this encounter Visit Diagnoses Not on filedocumented in this encounter Care Teams Global Process Owner Relationship Specialty Start Date End Date Keli Smith MD [address] [place] [phone] PCP - General Family Practice 08/22/21 documented as of this encounter
--- OUTSIDE RECORDS SUMMARY | 2025-06-29 06:03 | XMS_ITS | Encounter Summary ---
Author Organization [facility] Address [address] [place] [address] Care Team Providers Care Cemetery Laborer Name Role Phone Keli Smith MD Primary Care Provider [phone] Encounter Details Date Type Department Care Team (Late st Contact Info) Description 10/31/2004 Outpatient Historical [facility] Internal Medicine - [place] [address] [place] [address] [place] [address] [place] [address] Social History Tobacco Use Types Packs/Day Years Used Date Smoking Tobacco: Never Assessed Comments Unknown Sex and Gender Information Value Date Recorded Sex Assigned at Not on file Legal Sex Female 5:04 AM BELL CLEANER Gender Identity Not on file Sexual Orientation Not on file documented as of this encounter Last Filed Vital Signs Vital Sign Reading Time Taken Comments Blood Pressure 110/60 10/31/2004 9:30 AM BELL CLEANER Pulse - - Temperature 38.9 C (102 F) 10/31/2004 9:30 AM BELL CLEANER Respiratory Rate - - Oxygen Saturation - - Inhaled Oxygen Concentration - - Weight 64.4 kg (142 lb) 10/31/2004 9:30 AM BELL CLEANER Height - - Body Mass Index - - documented in this encounter Plan of Treatment Not on file documented as of this encounter Visit Diagnoses Not on filedocumented in this encounter Care Teams Cemetery Laborer Relationship Specialty Start Date End Date Keli Smith MD [address] [place] [phone] PCP - General Family Practice 08/22/21 documented as of this encounter
--- OUTSIDE RECORDS SUMMARY | 2025-06-29 06:03 | XMS_ITS | Encounter Summary ---
Author Organization [facility] Address [address] [place] [address] Care Team Providers Care Crystal Machining Coordinator Name Role Phone Keli Smith MD Primary Care Provider Encounter Details Date Type Department Care Team (Late st Contact Info) Description 01/20/2002 Outpatient [facility] [address] [place] [address] Abdoul Birmingham (Two) Social History Tobacco Use Types Packs/Day Years Used Date Smoking Tobacco: Never Assessed Comments Unknown Sex and Gender Information Value Date Recorded Sex Assigned at Not on file Legal Sex Female 5:04 AM RE EXAMINER Gender Identity Not on file Sexual Orientation Not on file documented as of this encounter Plan of Treatment Not on file documented as of this encounter Visit Diagnoses Not on filedocumented in this encounter Care Teams Crystal Machining Coordinator Relationship Specialty Start Date End Date Keli Smith MD [address] [place] [address] PCP - General Family Practice 08/22/21 documented as of this encounter
--- OUTSIDE RECORDS SUMMARY | 2025-06-29 06:03 | XMS_ITS | Encounter Summary ---
Author Organization [facility] Address 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
--- OUTSIDE RECORDS SUMMARY | 2025-06-29 06:03 | XMS_ITS | Encounter Summary ---
Author Organization [facility] Address [address] [place] [address] Care Team Providers Care Supervisor Yard Name Role Phone Keli Smith MD Primary Care Provider [phone] Encounter Details Date Type Department Care Team (Late st Contact Info) Description 05/19/2002 Outpatient Historical [facility] Internal Medicine [facility] [address] [place] [address] Vince Suazo MD NO ADDRESS ON FILE Social History Tobacco Use Types Packs/Day Years Used Date Smoking Tobacco: Never Assessed Comments Unknown Sex and Gender Information Value Date Recorded Sex Assigned at Not on file Legal Sex Female 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
--- OUTSIDE RECORDS SUMMARY | 2025-06-29 06:03 | XMS_ITS | Encounter Summary ---
Author Organization [facility] Address [address] [place] [address] Care Team Providers Care Hydraulic Dredge Operator Name Role Phone Keli Smith MD Primary Care Provider Encounter Details Date Type Department Care Team (Latest Contact Info) Description 06/15/2003 Outpatient Historical [facility] SH[place] Lindsey, [place] [address] [place] [address] ELB/FOREARM/WRST INJURY NOS (Primary Dx) Social History Tobacco Use Types Packs/Day Years Used Date Smoking Tobacco: Never Assessed Comments Unknown Sex and Gender Information Value Date Recorded Sex Assigned at Not on file Legal Sex Female 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
--- OUTSIDE RECORDS SUMMARY | 2025-06-29 06:03 | XMS_ITS | Encounter Summary ---
Author Organization [facility] Address 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
--- OUTSIDE RECORDS SUMMARY | 2025-06-29 06:03 | XMS_ITS | Clinical Summary ---
Author Organization [facility] Address [address] [place] [address] Care Team Providers Care Turpentine Farmer Name Role Phone Unavailable Primary Care Provider Unavailabl e Immunizations Immunization Administration Dates Next Due Covid-19, Mrna, Lnp-s, PF, 5 0 mcg/0.25 mL dose (Moderna) 11/28/2021 Social History Tobacco Use Types Packs/Day Years Used Date Smoking Tobacco: Never Assessed Comments Unknown Sex and Gender Information Value Date Recorded Sex Assigned at Not on file Legal Sex Female 1:51 PM MFG ASSOC Gender Identity Not on file Sexual Orientation [...]
--- OUTSIDE RECORDS SUMMARY | 2025-06-29 06:03 | XMS_ITS | Encounter Summary ---
Author Organization [facility] Address [address] [place] [address] Care Team Providers Care Outbound Sales Executive Name Role Phone Keli Smith MD Primary Care Provider [phone] Encounter Details Date Type Department Care Team (Late st Contact Info) Description 03/21/1999 Outpatient Historical [facility] Internal Medicine - [place] [address] [place] [address] Carmen Berry MD [address] [facility] [facility] [address] [place] [address] Social History Tobacco Use Types Packs/Day Years Used Date Smoking Tobacco: Never Assessed Comments Unknown Sex and Gender Information Value Date Recorded Sex Assigned at Not on file Legal Sex Female 5:04 AM TRAUMA 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
--- OUTSIDE RECORDS SUMMARY | 2025-06-29 06:03 | XMS_ITS | Encounter Summary ---
Author Organization [facility] Address [address] [place] [address] Care Team Providers Care Head Strength And Conditioning Coach Name Role Phone Keli Smith MD Primary Care Provider Encounter Details Date Type Department Care Team (Late st Contact Info) Description 08/28/2005 Outpatient Historical [facility] [address] [facility] [address] [place] [address] Louie Caicedo MD NO ADDRESS ON FILE Social History Tobacco Use Types Packs/Day Years Used Date Smoking Tobacco: Never Assessed Comments Unknown Sex and Gender Information Value Date Recorded Sex Assigned at Not on file Legal Sex Female 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
--- NOTE | 2025-06-29 06:41 | WPDHPUPDATE1 ---
History and Physical Update Update Date/Time: 06/29/25 06:41 History and Physical has been reviewed, including an updated exam of the patient. There are NO changes in the patient's condition. Risks, benefits, and alternatives have been discussed and questions answered. Patient agrees to proceed with procedure. Will proceed with arthroscopy, partial meniscectomy, proceed as indicated.
[2025-06-29] MEDS: LACTATED RINGERS 1,000 ML 30 ML IV CONT (06:50)
[2025-06-29] MEDS: ACETAMINOPHEN 500 MG TABLET 1000 MG PO (06:50)
[2025-06-29] MEDS: KETOROLAC 15 MG/ML VIAL (*BKC) IV PUSH (06:50)
[2025-06-29 07:07] LABS: BEDSIDEPREGUCG Negative (Negative)
--- NOTE | 2025-06-29 07:15 | WPDANESEPPF ---
Anes - Initial Pre Proc Eval Procedure: Operation Date: 06/29/25 07:30 Proposed Procedures p Right Knee Arthroscopy, Partial Meniscectomy, Proceed As Indicated - Maunelito Wolf MD Date/Time: 06/29/25 07:15 Surgeon: Manuelito Wolf MD Pre Op Diagnosis: right knee medial meniscal tear Patient Data Age: 50 Gender: F Height: 1.73 m Weight: 85 kg Last Vital Signs Temp 97.1 F L 06/29/25 06:50 Pulse 85 06/29/25 06:50 Resp 14 06/29/25 06:50 BP 117/79 06/29/25 06:50 Pulse Ox 99 06/29/25 06:50 O2 Del Method Room Air 06/29/25 06:50 Allergies Allergy/AdvReac Type Severity Reaction Status Date / Time bee venom protein (honey bee) Allergy Unknown Swelling Verified 06/29/25 07:07 latex Allergy Unknown Redness of Verified 06/29/25 07:07 Skin Home Medications ?Medication ?Instructions ?Recorded ?Confirmed ?Type multivitamin 1 tablet PO DAILY 07/22/23 06/21/25 History valacyclovir 500 mg tablet 500 mg PO Q12H PRN cold sores #90 12/06/24 06/21/25 Rx tabs ferrous sulfate 324 mg (65 mg 324 mg PO DAILY 12/16/24 06/21/25 History iron) tablet,delayed release hydrochlorothiazide 12.5 mg tablet 12.5 mg PO DAILY #90 tabs 02/14/25 06/21/25 Rx escitalopram oxalate 5 mg tablet 5 mg PO DAILY #30 tabs 03/30/25 06/21/25 Rx (Lexapro) lisinopril 5 mg tablet 5 mg PO DAILY #30 tabs 03/30/25 06/21/25 Rx estradiol 0.05 mg/24 hr semiweekly 1 patch transdermal 2XW 05/03/25 06/21/25 History transdermal patch (Minivelle) progesterone 100 mg PO DAILY 05/03/25 06/21/25 History Laboratory Tests 06/29/25 06:15 POC Urine HCG, Qual Negative (Negative) Patient hx anesthesia problems: none Family hx anesthesia problems: none Results Review: All pre-operative results and documents have been reviewed as part of the pre-operative evaluation. [facility] Past Medical History Medical History Other chronic pain History of migraine headaches History of atrial fibrillation Elevated blood pressure reading Chronic left shoulder pain Surgical History Surgical History H/O excision of mass 07/29/23 Excision of right lower back mass intramuscular lipoma Hx of section x3 -- 2006, 2007, 2011 Family History Family History Grandparent Diabetes mellitus Family history of glaucoma Family history of cardiovascular disease Cerebrovascular accident Mother Carcinoma of colon Father DVT (deep venous thrombosis) Sibling DVT (deep venous thrombosis) Other Family history of elevated blood lipids Hypertension Social History Social History Smoking status: Never smoker Second hand tobacco smoke exposure: No Alcohol intake: current Drinks per week: 2 Alcohol use details: every once in a while Substance use: never Substance use type: does not use Do You Feel Safe in your Home?: Yes Lack of Transportation: No Lack of Food: Never True Current Housing: I Have Housing Concerned About Future Housing: No Difficulty Paying Gas/Electric Bills: No Difficulty Paying for Meds: No Currently Unemployed: No Education: Bachelor's Degree Difficulty w/ Childcare or Family Care: No Living arrangements: with family Gender identity (if verbalized by the patient): Female Sexual Orientation (if Verbalized by the Patient): Straight or Heterosexual Spiritual care concerns: No Anes - Eval Final PreProcedure Day of Procedure 06/29/25 07:15 Patient weight: normal Heart: regular rate and rhythm Lungs: clear to auscultation Airway: Mallampati scale class II Neurological: alert and oriented Last oral intake: >/= 8 hours ASA classification: II Emergent: no Anesthetic plan: proceed Anesthesia type and monitoring: general LMA and standard monitoring Results Review: All pre-operative results and documents have been reviewed as part of the pre-operative evaluation. Informed Consent: The patient's anesthetic plan and its attendant risks and benefits were discussed with the patient/family/POA. Questions were solicited and answers provided to the satisfaction of the patient/family/POA.
[2025-06-29] MEDS: ceFAZolin 2 GM in SODIUM CHLORIDE 0.9% IV 50 ML 100 ML IVPB (07:26)
[2025-06-29] MEDS: LIDO 1%/EPINEPHRINE 1:100,000 20 ML VIAL 10 ML INFILTRATE (07:55)
--- NOTE | 2025-06-29 08:06 | W.PM.PROC2 ---
Procedure Note - Detailed Date of Procedure 06/29/25 Pre-op Diagnosis Right knee lateral meniscal tear ACL tear Post-op Diagnosis Same Procedure Performed RIGHT knee arthroscopy with partial meniscectomy Surgeon Manuelito Wolf MD Anesthesia General Indications Pain, Locking and Catching Description of Procedure Patient brought to operating room # 7. An anesthetic was administered. The knee was sterilely prepped and draped in the usual manner. Standard portals were used. Superior medial portal was used for the outflow cannula, inferior lateral portal was used for the scope, inferior medial portal was used for the instruments. Arthroscopy was performed, the patellar femoral joint degenerative changes. A plica was noted this was debrided using a shaver and baskets. The medial compartment showed a relatively normal-looking meniscus. I probed the meniscus and found it to be stable. She did have a fair bit of the fraying and delamination of the medial femoral condyle. This is trimmed back to a stable base. The lateral meniscus demonstrated a tear posteriorly this is debrided and trimmed with a nothing further could be pulled in the joint. The ACL was torn. Using baskets and charu the meniscal tear was trimmed back to a stable base so the nothing further could be pulled into the joint. Any loose or delaminated fragments were gently trimmed to a stable base. At this point the instruments were withdrawn, sutures placed and patient left the operating room in satisfactory condition. Estimated Blood Loss 20 Drains No Packing No Pathology None sent Complications No immediate complications Condition Stable Disposition PACU [facility] Billing Surgery - Charge Forward: Surgery Billing ([id number] SCOPE LMT)
[2025-06-29] MEDS: oxyCODONE HCL (*CRX) 5 MG TAB IR PO (09:15)
== END 2025-06-29 10:00 | disposition home or self-care (01) ==
PROVIDERS: PCP Family Medicine; Visit Provider Orthopaedic Surgery
PROC: (CPT 29870; principal; 2025-06-29 07:30)
DX: S83.281A Other tear of lateral meniscus, current injury, right knee, initial encounter (principal); S83.511A Sprain of anterior cruciate ligament of right knee, initial encounter; X58.XXXA Exposure to other specified factors, initial encounter
CPT/HCPCS: 29881; J0690; A9270; J1885; J2003; J2004; J2250; J2405; J2704; J3010; J7120